=== PATIENT | female | born 1965 | race Caucasian/White ===

== ENCOUNTER 2016-11-17 16:53 | Inpatient (IN) | payer OTHER ==
[~2016-11-17] VITALS: Ht 157.5 cm; Wt 94.5 kg
[2016-11-17 20:15] VITALS: Ht 157.5 cm; Wt 94.5 kg
[2016-11-17 20:28] VITALS: BP 121/59; RESP 18
[2016-11-17] MEDS ORDERED: HYDROCODONE/APAP (7.5/325) TAB PO PRN (23:00)
[2016-11-17] MEDS ORDERED: INSULIN ASPART [NOVOLOG] 3 ML PEN SC ONE (23:30)
[2016-11-17] MEDS ORDERED: GLUCAGON 1 MG INJ IM PRN (23:30)
[2016-11-17] MEDS ORDERED: GLUCOSE GEL 15 GRAM TUBE BUCCAL PRN (23:30)
[2016-11-17] MEDS ORDERED: GLUCOSE GEL 15 GRAM TUBE PO PRN ×2 (23:30)
[2016-11-17] MEDS ORDERED: DEXTROSE 50% 50 ML SYRINGE IV PRN ×2 (23:30)
[2016-11-17] MEDS: morphine 4 MG/ML VIAL IV PRN (23:41)
[2016-11-17] MEDS: CIPROFLOXACIN 400MG/D5W 200 ML IVPB SCH (23:42)
[2016-11-17] MEDS: ALPRAZOLAM 0.5 MG TAB PO SCH (23:42)
[2016-11-17] MEDS: INSULIN ASPART [NOVOLOG] 3 ML PEN SC SCH (23:46)
[2016-11-17] MEDS: INSULIN GLARGINE [LANtus] 3 ML PEN SC SCH (23:48)
[2016-11-17] MEDS: DOCUSATE SODIUM 100 MG CAP PO SCH (23:48)
[2016-11-18] MEDS ORDERED: TAMSULOSIN (SR) 0.4 MG CAP PO SCH (00:30)
[2016-11-18] MEDS ORDERED: ZOLPIDEM 5 MG TAB PO PRN (00:30)
[2016-11-18 01:05] LABS: ADD SCAN DIFF NO
[2016-11-18 01:07] LABS: BASOPHILS % 0.3 % (0.0-2.0); EOSINOPHILS # 0.1 10^3/ul (0.0-0.5); EOSINOPHILS % 2.2 % (0.0-7.0); HEMATOCRIT 34.2 % (37.0-47.0); HEMOGLOBIN 11.4 g/dl (12.0-16.0); LYMPHOCYTES # 1.7 10^3/ul (0.8-2.9); LYMPHOCYTES % 26.8 % (15.0-51.0); MEAN CORPUSCULAR HEMOGLOBIN 26.6 pg (29.0-33.0); MEAN CORPUSCULAR HGB CONC 33.3 g/dl (32.0-37.0); MEAN CORPUSCULAR VOLUME 79.9 fl (82.0-101.0); MEAN PLATELET VOLUME 9.4 fl (7.4-10.4); MONOCYTE # 0.4 10^3/ul (0.3-0.9); MONOCYTES % 5.4 % (0.0-11.0); NEUTROPHIL # 4.2 10^3/ul (1.6-7.5); PLATELET COUNT 234 10^3/UL (140-415); RED BLOOD COUNT 4.28 10^6/ul (4.20-5.40); RED CELL DISTRIBUTION WIDTH 13.7 % (11.5-14.5); WHITE BLOOD COUNT 6.5 10^3/ul (4.8-10.8)
[2016-11-18 01:52] LABS: ALBUMIN 3.9 g/dl (3.3-4.9); ALBUMIN/GLOBULIN RATIO 1.21; BILIRUBIN,INDIRECT 0.2 mg/dl (0-1.1); BILIRUBIN,TOTAL 0.2 mg/dl (0.2-1.3); CALCIUM 8.8 mg/dl (8.4-10.2); CREATININE 0.84 mg/dl (0.44-1.00); MAGNESIUM 1.6 mg/dl (1.7-2.5); PHOSPHORUS 3.2 mg/dl (2.5-4.9); POTASSIUM 4.2 mmol/L (3.5-5.1); TOTAL PROTEIN 7.1 g/dl (6.1-8.1)
[2016-11-18] MEDS: ACCU-CHEK XX SCH (02:00)
[2016-11-18] MEDS ORDERED: MAGNESIUM SULFATE 4 GM/100 ML 100 ML IVPB ONE (04:00)
[2016-11-18] MEDS: ALPRAZOLAM 0.5 MG TAB PO SCH (06:38)
[2016-11-18 06:57] LABS: ADD UMIC YES; URINE BILIRUBIN (Dip) NEGATIVE (NEGATIVE); URINE BLOOD (Dip) 3+ (NEGATIVE); URINE COLOR LT. YELLOW (YELLOW); URINE KETONES (Dip) NEGATIVE (NEGATIVE); URINE LEUKOCYTE ESTERASE (Dip) 2+ (NEGATIVE); URINE NITRITE (Dip) POSITIVE (NEGATIVE); URINE TOTAL PROTEIN (Dip) 1+ (NEGATIVE); URINE UROBILINOGEN (Dip) 0.2 E.U./dL (0.1-1.0)
[2016-11-18] MEDS ORDERED: MAGNESIUM SULFATE 2 GM/50 ML 50 ML IVPB ONE ×2 (07:00→12:30)
[2016-11-18 07:25] VITALS: BP 130/62; RESP 18
[2016-11-18 07:44] LABS: BACTERIA,URINE MANY; URINE RBCS 25-50 /HPF (0)
[2016-11-18] MEDS: INSULIN ASPART [NOVOLOG] 3 ML PEN SC SCH ×4 (08:00→20:34)
[2016-11-18] MEDS: BENAZEPRIL 10 MG TAB PO SCH ×2 (09:00→09:01)
[2016-11-18] MEDS ORDERED: SERTRALINE 50 MG TAB PO SCH (09:00)
[2016-11-18] MEDS: DOCUSATE SODIUM 100 MG CAP PO SCH ×2 (09:01→20:28)
[2016-11-18] MEDS: CIPROFLOXACIN 400MG/D5W 200 ML IVPB SCH (09:06)
--- NOTE | 2016-11-18 11:33 | HP ---
Date/Time of Note Date/Time of Note DATE: 11/18/16 TIME: 11:23 Assessment/Plan Lines/Catheters IV Catheter Type (from Nrsg): Saline Lock Urinary Cath still in place: No Assessment/Plan Assessment/Plan 1. Bilateral Flank and Suprapubic pain - will check basic labs - UA with micro and urine culture - f/u urology recs 2, Hx of Ureteral Stent, 2 months ago at [facility] - awaiting urology eval 3. Diabetes - insulin with adjustment as needed - check A1c 4. Hx of panic d/o PRN anti-anxiety meds 5.Obesity with BMI of 38 - weight reduction advised HPI/ROS Admit Date/Time Admit Date/Time November 17, 2016 at 19:05 Hx of Present Illness Patient is a 51 yo female with hx of DM, panic disorder, Ureteral stent wjo was transferred from [facility] for evaluation of the ureteral stent. pat said she has been experiencing bilateral flank pain and also reported hematuria. Stent was placed at [facility] in september of this year. transfer to [facility] was accepted by Dr. Laughlin, urologist. of note, pt is a [employer]. . PMH/Family/Social Social History Smoking Status: Never smoker Exam/Review of Systems Vital Signs Vitals Vital Signs Date Time Temp Pulse Resp B/P Pulse Ox O2 Delivery O2 Flow Rate FiO2 11/18/16 07:25 98.6 64 18 130/62 96 Intake and Output 11/17/16 11/17/16 11/18/16 15:00 23:00 07:00 Intake Total 692 ml Output Total 200 ml Balance 492 ml Labs Result Diagram: 11/18/16 0030 11/18/16 0030 Medications Medications Current Medications Ciprofloxacin/ Dextrose (Cipro Ivpb) 200 ml @ 200 mls/hr Q12 IVPB Last administered on 11/18/16 09:06; Admin Dose 200 MLS/HR; Start 11/17/16 at 23:00 Morphine Sulfate (morphine) 4 mg Q4H PRN IV PAIN Last administered on t 23:41; Admin Dose 4 MG; Start 11/17/16 at 23:00 Benazepril HCl (Lotensin) 10 mg DAILY PO ; Start 11/18/16 at 09:00 Diphenhydramine HCl (Benadryl) 25 mg Q6H PRN PO ITCHING; Start 11/17/16 at 23: 00 Docusate Sodium (Colace) 100 mg BID PO Last administered on 11/18/16 09:01; Admin Dose 100 MG; Start 11/17/16 at 23:00 Ondansetron HCl (Zofran Inj) 4 mg Q4H PRN IV NAUSEA AND/OR VOMITING; Start 05/26 at 23:00 Sertraline HCl (Zoloft) 25 mg DAILY PO Last administered on 11/18/16 09:01; Admin Dose 25 MG; Start 11/18/16 at 09:00 Tamsulosin HCl (Flomax) 0.4 mg HS PO Last administered on 11/18/16 00:41; Admin Dose 0.4 MG; Start 11/18/16 at 00:30 Diagnostic Test (Pha) (Accu-Chek) Check 2 am Accucheck only if... 02 XX ; Start 11/18/16 at 02:00 Insulin Glargine (Lantus) 15 unit HS SC Last administered on 11/17/16 23:48; Admin Dose 15 UNIT; Start 11/18/16 at 21:00 Acetaminophen/ Hydrocodone Bitart (Emily (10/325)) 1 tab Q4H PRN PO PAIN; Start 11/17/16 at 23:30 Miscellaneous Information 1 ea NOTE XX ; Start 11/17/16 at 23:30 Glucose (Glutose) 15 gm Q15M PRN PO DECREASED GLUCOSE; Start 11/17/16 at 23:30 Glucose (Glutose) 22.5 gm Q15M PRN PO DECREASED GLUCOSE; Start 11/17/16 at 23: 30 Dextrose (D50w Syringe) 25 ml Q15M PRN IV DECREASED GLUCOSE; Start 11/17/16 at 23:30 Dextrose (D50w Syringe) 50 ml Q15M PRN IV DECREASED GLUCOSE; Start 11/17/16 at 23:30 Glucagon (Glucagen) 1 mg Q15M PRN IM DECREASED GLUCOSE; Start 11/17/16 at 23:30 Glucose (Glutose) 15 gm Q15M PRN BUCCAL DECREASED GLUCOSE; Start 11/17/16 at 23 :30 Alprazolam (Xanax) 25 mg BID PO ; Start 11/18/16 at 21:00; Status UNV Famotidine (Pepcid Iv) 20 mg DAILY IV ; Start 11/18/16 at 11:30 JUN COMER MD November 18, 2016 11:33
[2016-11-18] MEDS ORDERED: BUSPIRONE 5 MG TAB PO SCH (12:00)
--- NOTE | 2016-11-18 12:01 | PN ---
Date/Time of Note Date/Time of Note DATE: 11/18/16 TIME: 11:52 Assessment/Plan VTE Prophylaxis VTE Prophylaxis Intervention: LMWH Lines/Catheters IV C[facility]ter Type (from [facility]): Saline Lock Urinary Cath still in place: No Assessment/Plan Chief Complaint/Hosp Course S: Bilat flank pain, Dysuria, & Nausea. No hematuria. Stent was placed 4 months ~ at [facility]. Drinks plenty of fluids. Has intermittent constipation. O: Fever improved PE No pallor icterus adenopathy Reg no m/r/g CTAB Bs +/ diminished, mild diffuse tender below umbilicus bilat. Overweight. No r/r/ g or cvat No edema A/P 1. Complicated cystitis. Stable consulted urology. May need stent exchange. 2. Acute ESBL cystitis. Stent exchange with 7-10 days IV meropenem. May need PICC home help 3. Diabetes/metabolic syndrome/obesity; patient on po therapy at home 4. Anxiety disorder 5. Cholecystectomy status; history of 2 sections. 6. Chronic depression? Problems: Exam/Review of Systems Vital Signs Vitals Vital Signs Date Time Temp Pulse Resp B/P Pulse Ox O2 Delivery O2 Flow Rate FiO2 11/18/16 07:25 98.6 64 18 130/62 96 Intake and Output 11/17/16 11/17/16 11/18/16 15:00 23:00 07:00 Intake Total 692 ml Output Total 200 ml Balance 492 ml Results Result Diagram: 11/18/16 0030 11/18/16 0030 Results 24 hrs Laboratory Tests Test 11/17/16 23:03 11/18/16 00:04 11/18/16 00:30 11/18/16 02:15 Bedside Glucose 359 H 295 H Urine Color LT. YELLOW Urine Clarity OTHER Urine pH 6.0 Urine Specific [place] 1.025 Urine Ketones NEGATIVE Urine Nitrite POSITIVE H Urine Bilirubin NEGATIVE Urine Urobilinogen 0.2 E.U./dL Urine Leukocyte Esterase 2+ H Urine Microscopic RBC 25-50 Urine Microscopic WBC >50 Urine Epithelial Cells MODERATE Urine Triple Phosphate Crystals FEW Urine Bacteria MANY Urine Yeast MODERATE Urine Hemoglobin 3+ H Urine Glucose 0.5% H Urine Total Protein 1+ H White Blood Count 6.5 Red Blood Count 4.28 Hemoglobin 11.4 L Hematocrit 34.2 L Mean Corpuscular Volume 79.9 L Mean Corpuscular Hemoglobin 26.6 L Mean Corpuscular Hemoglobin Concent 33.3 Red Cell Distribution Width 13.7 Platelet Count 234 Mean Platelet Volume 9.4 Neutrophils % 65.0 Lymphocytes % 26.8 Monocytes % 5.4 Eosinophils % 2.2 Basophils % 0.3 Nucleated Red Blood Cells % 0.0 Neutrophils # 4.2 Lymphocytes # 1.7 Monocytes # 0.4 Eosinophils # 0.1 Basophils # 0.0 Nucleated Red Blood Cells # 0.0 Sodium Level 132 L Potassium Level 4.2 Chloride Level 100 Carbon Dioxide Level 23 Anion Gap 13 Blood Urea Nitrogen 18 Creatinine 0.84 Glucose Level 417 *H Hemoglobin A1c 7.7 H Calcium Level 8.8 Phosphorus Level 3.2 Magnesium Level 1.6 L Total Bilirubin 0.2 Direct Bilirubin 0.00 Indirect Bilirubin 0.2 Aspartate Amino Transf (AST/SGOT) 29 Alanine Aminotransferase (ALT/SGPT) 27 Alkaline Phosphatase 89 Total Protein 7.1 Albumin 3.9 Globulin 3.20 Albumin/Globulin Ratio 1.21 Test 11/18/16 08:03 11/18/16 11:45 Bedside Glucose 109 225 H Medications Medications Current Medications Ciprofloxacin/ Dextrose (Cipro Ivpb) 200 ml @ 200 mls/hr Q12 IVPB Last administered on 11/18/16 09:06; Admin Dose 200 MLS/HR; Start 11/17/16 at 23:00 Morphine Sulfate (morphine) 4 mg Q4H PRN IV PAIN Last administered on 23:41; Admin Dose 4 MG; Start 11/17/16 at 23:00 Benazepril HCl (Lotensin) 10 mg DAILY PO ; Start 11/18/16 at 09:00 Diphenhydramine HCl (Benadryl) 25 mg Q6H PRN PO ITCHING; Start 11/17/16 at 23: 00 Docusate Sodium (Colace) 100 mg BID PO Last administered on 11/18/16 09:01; Admin Dose 100 MG; Start 11/17/16 at 23:00 Ondansetron HCl (Zofran Inj) 4 mg Q4H PRN IV NAUSEA AND/OR VOMITING; Start 05/26 at 23:00 Sertraline HCl (Zoloft) 25 mg DAILY PO Last administered on 11/18/16 09:01; Admin Dose 25 MG; Start 11/18/16 at 09:00 Tamsulosin HCl (Flomax) 0.4 mg HS PO Last administered on 11/18/16 00:41; Admin Dose 0.4 MG; Start 11/18/16 at 00:30 Diagnostic Test (Pha) (Accu-Chek) Check 2 am Accucheck only if... 02 XX ; Start 11/18/16 at 02:00 Insulin Glargine (Lantus) 15 unit HS SC Last administered on 11/17/16 23:48; Admin Dose 15 UNIT; Start 11/18/16 at 21:00 Acetaminophen/ Hydrocodone Bitart ([place] ()) 1 tab Q4H PRN PO PAIN; Start 11/17/16 at 23:30 Miscellaneous Information 1 ea NOTE XX ; Start 11/17/16 at 23:30 Glucose (Glutose) 15 gm Q15M PRN PO DECREASED GLUCOSE; Start 11/17/16 at 23:30 Glucose (Glutose) 22.5 gm Q15M PRN PO DECREASED GLUCOSE; Start 11/17/16 at 23: 30 Dextrose (D50w Syringe) 25 ml Q15M PRN IV DECREASED GLUCOSE; Start 11/17/16 at 23:30 Dextrose (D50w Syringe) 50 ml Q15M PRN IV DECREASED GLUCOSE; Start 11/17/16 at 23:30 Glucagon (Glucagen) 1 mg Q15M PRN IM DECREASED GLUCOSE; Start 11/17/16 at 23:30 Glucose (Glutose) 15 gm Q15M PRN BUCCAL DECREASED GLUCOSE; Start 11/17/16 at 23 :30 Alprazolam (Xanax) 25 mg BID PO ; Start 11/18/16 at 21:00; Status UNV Famotidine (Pepcid Iv) 20 mg DAILY IV ; Start 11/18/16 at 11:30 CHARIS OCHOA MD November 18, 2016 12:01
[2016-11-18] MEDS: FAMOTIDINE 20 MG INJ IV SCH (12:27)
[2016-11-18] MEDS: morphine 4 MG/ML VIAL IV PRN ×2 (12:27→18:14)
[2016-11-18] MEDS ORDERED: traZODone 50 MG TAB PO PRN (12:30)
[2016-11-18] MEDS ORDERED: MEROPENEM 2 GM in SOD CHLORIDE 0.9% 100 ML IVPB SCH (12:30)
[2016-11-18] MEDS: SOD CHLORIDE 0.9% 1,000 ML IV SCH (12:31)
--- NOTE | 2016-11-18 13:43 | CONS ---
DATE OF ADMISSION: 11/17/2016 DATE OF CONSULTATION: UROLOGY CONSULTATION HISTORY: Aline is a 51-year-old female who is not able to give any pertinent medical history. Klarissa sánchez has been transferred from an outside institution for continuation of her urologic care under the a ssistance of Dr. Laughlin. Apparently, the patient has a long history of nephrolithiasis and insertion of a previous right ureteral stent. It is unclear how long the stent has been in there and potenti bernadettey may have been there for several years. A CT scan in October of this year demonstrates a right st ent, as well as a 3 x 1 stone in the right renal pelvis and a 10 x 8 mid to distal right ureteral st one. There is a focus of gas in the renal pelvis and it is unclear if this is secondary to infectio n or manipulation. Her urine culture is consistent with ESBL. On November 14 her creatinine was 1.0, h er white blood count was 7.8, her hemoglobin was 12.1. There is a question of atrophy and renal fun ction of the right kidney. She is a [employer] and is potentially considering removal of her right kidney or a robotic nephrolithotomy. PAST MEDICAL HISTORY: Diabetes, morbid obesity, urinary tract infection. PAST SURGICAL HISTORY: Status post insertion of a stent, status post , removal of ovarian tumor, status post tonsillectomy. MEDICATIONS: 1. Benazepril 2. Metformin. 3. Alprazolam. 4. Diphenhydramine. 5. Tylenol No. 3. 6. Flagyl. 7. Macrobid. 8. Flomax. 9. Sertraline. PHYSICAL EXAMINATION: GENERAL: Morbidly obese female, in no apparent distress. LUNGS: Good breath sounds bilaterally. HEART: Regular rate and rhythm. ABDOMEN: Soft, nondistended, nontender. No palpable masses. Flank, no CVA tenderness, no masses. IMPRESSION: 1. Urinary tract infection. 2. Staghorn calculi. 3. Possible significant distal ureteral stone. 4. Diabetes. PLAN: 1. IV antibiotic therapy. 2. Discontinue Flomax. 3. Discontinue Flagyl and Macrobid. 4. MAG3 renal scan with Lasix washout. 5. CT scan of abdomen and pelvis without contrast and KUB with obliques. Further intervention and evaluation pending clinical course and results of above. Dictated By: JUDITH DOMINGUEZ/NTS Conf#: [id number] DID#: [id number]
[2016-11-18] MEDS ORDERED: MEROPENEM 2 GM in SOD CHLORIDE 0.9% 100 ML IV SCH (14:00)
[2016-11-18] MEDS: MEROPENEM 1 GM/100 ML (PMX) 100 ML IVPB SCH ×2 (15:07→22:10)
[2016-11-18] MEDS: HYDROCODONE/APAP (10/325) TAB PO PRN (15:14)
--- NOTE | 2016-11-18 16:08 | RADRPT ---
PROCEDURE: XR Abdomen. CLINICAL INDICATION: Urinary tract calculus. TECHNIQUE: Two views. AP supine and AP erect. COMPARISON: CT scan of the abdomen and pelvis done the same day. FINDINGS: There is no free air. The bowel gas pattern is normal with no evidence of obstruction. Surgical clips are present in the right upper quadrant of the abdomen from previous cholecystectomy. A right ureteral stent is present in satisfactory position. There is a calculus in the proximal rig ht ureter measuring 0.9 x 2.0 cm in cranial caudal and transverse dimensions. A calculus in the mid right ureter at the level of the upper sacroiliac joint seen on the CT scan is not well seen on the plain radiograph. There are mild degenerative changes of the spine. IMPRESSION: 1. Previous cholecystectomy. 2. Right ureteral stent in satisfactory position. 3. Large calculus in the proximal right ureter. 4. The calculus in the mid right ureter seen on the CT scan is not well seen on the plain radiograp h. 5. Mild degenerative changes of the spine. RPTAT: QQ .Artemio Junior MD, Date Time Electronically viewed and signed by .Artemio Junior MD, on 11/18/2016 16:08 .R/
--- NOTE | 2016-11-18 16:17 | RADRPT ---
PROCEDURE: CT Abdomen and Pelvis without contrast. CLINICAL INDICATION: Abdominal and pelvic pain. Urinary tract calculi. TECHNIQUE: CT scan of the abdomen and pelvis without contrast was performed. Coronal and sagittal reformatted images were obtained from the axial source images. Images were reviewed on a high-resolu [employer] PACS workstation. Total exam DLP is 1324.83 mGy-cm. CTDIvol is 21.72 mGy. One or more of the following dose reduction techniques were used: Automated exposure control, adjustment of the mA and/ or kV according to patient size, use of iterative reconstruction technique. COMPARISON: None. FINDINGS: The lung bases are normal. There is no pleural effusion. The liver is normal in size and attenuation. There is no focal hepatic lesion. Surgical clips are present from previous cholecystectomy. The bile ducts are normal. The spleen is normal in size. There is no focal splenic lesion. Both adrenals are normal with no enlargement or mass. The pancreas is unremarkable with no mass or evidence of pancreatitis. The right kidney is atrophic. There is mild right hydronephrosis. A right double pigtail ureteral stent is present in satisfactory position. There is a large calculus in the proximal right ureter/u reteropelvic junction measuring 1.2 x 1.9 x 2.1 cm in AP, transverse, and cranial caudal dimensions. A second calculus is present in the mid right ureter at the level of the upper sacroiliac joint me asuring 0.7 x 0.8 x 1.0 cm in AP, transverse, and cranial caudal dimensions. There is no other urin keren tract calculus. The left kidney is normal with no hydronephrosis, mass, or calculus. There is normal size and the left kidney. The abdominal aorta is not dilated. There is no retroperitoneal lymphadenopathy or mass. There is no pelvic lymphadenopathy or mass. The bladder as the distal end of the right ureteral stent but is otherwise normal. The appendix is well seen and appears normal. The bowel and mesentery are normal. There is no free fluid or free gas. The osseous structures are unremarkable with no fracture or lytic lesion. IMPRESSION: 1. Status post cholecystectomy. 2. Atrophic right kidney. 3. Right ureteral stent in satisfactory position. 4. Calculus in the proximal right ureter/ureteropelvic junction measuring 1.2 x 1.9 x 2.1 cm. 5. Calculus in the mid right ureter measuring 0.7 x 0.8 x 1.0 cm. 6. Normal left kidney and left ureter. 7. Normal appendix. 8. Otherwise unremarkable study. RPTAT: QQ .Artemio Junior MD, Date Time Electronically viewed and signed by .Artemio Junior MD, on 11/18/2016 16:17 .R/
[2016-11-18 20:09] VITALS: BP 128/62; RESP 16
[2016-11-18] MEDS: ONDANSETRON 4 MG INJ IV PRN (20:24)
[2016-11-18] MEDS: INSULIN GLARGINE [LANtus] 3 ML PEN SC SCH (20:33)
[2016-11-18] MEDS ORDERED: INSULIN GLARGINE [LANtus] 3 ML PEN SC SCH (21:00)
[2016-11-18] MEDS ORDERED: ALPRAZOLAM 0.5 MG TAB PO SCH (21:00)
--- NOTE | 2016-11-18 21:43 | RADRPT ---
PROCEDURE: Renal scan flow and function study with Lasix CLINICAL INDICATION: 51 -year-old patient with right -sided hydronephrosis, for evaluation for obst ructive process. TECHNIQUE: Following the intravenous injection of 11.0 mCi of Tc-99m MAG3, renal scan, flow and fu nction study was obtained. The patient was then given an intravenous injection of 40 mg of Lasix an d imaging acquisition was continued for additional 30 minutes. COMPARISON: No prior renal scans. CT scan of the abdomen and pelvis dated November 18, 2016 FINDINGS: Blood flow phase of the study demonstrates normal bolus aortic transit time, severely degree as bloo d flow to the right kidney and normal blood flow to the left kidney. Function phase of the study demonstrates severely reduced initial extraction of the right kidney and normal initial extraction of the left kidney. The right kidney is markedly smaller in size than the left kidney. On the delayed views, there is evidence of a mild retention of radionuclide in the right renal pelvi s. Following Lasix administration, there is evidence of a normal washout of activity from the left noel ecting renal system following Lasix administration with calculated T1/2 time of 11 minutes (normal i s less than 10 minutes, borderline between 10 and 20 minutes, abnormal is greater than 20 minutes). Diuretic response of the right kidney cannot be determined due to a poor underlying renal function. Split function is 98 % for the left kidney and 2% for the right kidney. IMPRESSION: 1. Severely reduced flow and function of the small right kidney with mild retention of radionuclide in the right renal pelvis; diuretic response cannot be determined due to a poor underlying renal fu nction. 2. Normal flow and function of the left kidney with normal washout of activity following Lasix admin istration. 3. Split function is 98 % for the left kidney and 2% for the right kidney. RPTAT: QQ .Medina Barron MD, MD Date Time Electronically viewed and signed by .Medina Barron MD, on 11/18/2016 21:42 .L/
[2016-11-18 22:00] VITALS: PULSE 88
[2016-11-18] MEDS: morphine 10 MG INJ IV PRN (22:17)
[2016-11-18] MEDS: ZOLPIDEM 5 MG TAB PO PRN (23:45)
[2016-11-19] MEDS: ACCU-CHEK XX SCH (01:31)
[2016-11-19] MEDS: SOD CHLORIDE 0.9% 1,000 ML IV SCH ×2 (01:31→11:58)
[2016-11-19] MEDS: MEROPENEM 1 GM/100 ML (PMX) 100 ML IVPB SCH ×3 (05:19→21:26)
[2016-11-19 06:06] LABS: ADD SCAN DIFF NO
[2016-11-19 06:22] LABS: BASOPHILS % 0.3 % (0.0-2.0); EOSINOPHILS # 0.3 10^3/ul (0.0-0.5); EOSINOPHILS % 3.8 % (0.0-7.0); HEMATOCRIT 35.8 % (37.0-47.0); HEMOGLOBIN 11.5 g/dl (12.0-16.0); LYMPHOCYTES # 2.2 10^3/ul (0.8-2.9); LYMPHOCYTES % 32.3 % (15.0-51.0); MEAN CORPUSCULAR HGB CONC 32.1 g/dl (32.0-37.0); MEAN CORPUSCULAR VOLUME 80.8 fl (82.0-101.0); MEAN PLATELET VOLUME 9.2 fl (7.4-10.4); MONOCYTE # 0.4 10^3/ul (0.3-0.9); MONOCYTES % 6.5 % (0.0-11.0); NEUTROPHIL # 3.9 10^3/ul (1.6-7.5); NEUTROPHILS % 56.8 % (39.0-77.0); PLATELET COUNT 238 10^3/UL (140-415); RED BLOOD COUNT 4.43 10^6/ul (4.20-5.40); RED CELL DISTRIBUTION WIDTH 13.8 % (11.5-14.5); WHITE BLOOD COUNT 6.8 10^3/ul (4.8-10.8)
[2016-11-19 06:52] LABS: INR 1.02; PROTIME 13.4 Sec (12.2-14.2)
[2016-11-19 07:02] LABS: ALBUMIN 3.7 g/dl (3.3-4.9); ALBUMIN/GLOBULIN RATIO 1.12; BILIRUBIN,INDIRECT 0.2 mg/dl (0-1.1); BILIRUBIN,TOTAL 0.2 mg/dl (0.2-1.3); CALCIUM 8.7 mg/dl (8.4-10.2); CREATININE 0.93 mg/dl (0.44-1.00); MAGNESIUM 1.9 mg/dl (1.7-2.5); PHOSPHORUS 4.2 mg/dl (2.5-4.9); POTASSIUM 3.9 mmol/L (3.5-5.1)
[2016-11-19 07:29] LABS: THYROID STIMULATING HORMONE 1.39 MIU/L (0.465-4.680)
[2016-11-19 07:56] VITALS: BP 109/52; RESP 18
[2016-11-19] MEDS: INSULIN ASPART [NOVOLOG] 3 ML PEN SC SCH ×4 (08:00→20:50)
[2016-11-19] MEDS: FAMOTIDINE 20 MG INJ IV SCH (08:22)
[2016-11-19] MEDS: SERTRALINE 50 MG TAB PO SCH (08:22)
[2016-11-19] MEDS: BENAZEPRIL 10 MG TAB PO SCH (08:27)
[2016-11-19] MEDS: morphine 10 MG INJ IV PRN ×4 (09:13→22:09)
--- NOTE | 2016-11-19 11:33 | RADRPT ---
PROCEDURE: XR Chest. CLINICAL INDICATION: Preoperative evaluation TECHNIQUE: Single frontal chest x-ray. COMPARISON: None. FINDINGS: No acute infiltrate, pleural effusion or pneumothorax is identified. Cardiomediastinal silhouette i s within normal limits. The osseous structures are unremarkable. IMPRESSION: 1. No evidence of acute cardiopulmonary process. RPTAT: QQ .Jonn Arguello MD, MD Date Time Electronically viewed and signed by .Jonn Arguello MD, on 11/19/2016 11:32 .R/
--- NOTE | 2016-11-19 17:20 | PN ---
Date/Time of Note Date/Time of Note DATE: 11/19/16 TIME: 17:13 Assessment/Plan VTE Prophylaxis VTE Prophylaxis Intervention: ambulation Lines/Catheters IV [facility] Peripheral IV Urinary Cath still in place: No Assessment/Plan Assessment/Plan Right atrophic Kidney: Nuc scan and CT C/W non functioning kidney Abd/flank pain Right Side UTI: infected right kidney Large stone in Right kidney Ureteral stone Retained right ureteral stent PLAN: Cont Iv Abx Pt is schedule for laparoscopic right nephrectomy on monday11/23/16 Due to the facts that the right kidney is non functional, atrophic, and pt does not accept blood transfusion, a PCNL will not be performed for the pt. Instead a lap right nephrectomy will be performed Subjective 24 Hr Interval Summary Free Text/Dictation right abdominal pain Exam/Review of Systems Vital Signs Vitals Vital Signs Date Time Temp Pulse Resp B/P Pulse Ox O2 Delivery O2 Flow Rate FiO2 11/19/16 07:56 97.8 85 18 109/52 92 Intake and Output 11/18/16 11/18/16 11/19/16 15:00 23:00 07:00 Intake Total 288 ml 1310 ml 1730 ml Output Total 1100 ml Balance 288 ml 210 ml 1730 ml Exam Gastrointestinal: non-tender (right abd tenderness), soft, tender Genitourinary - Female: CVA tenderness (right ) Results Result Diagram: 11/19/16 0515 11/19/16 0515 Results 24 hrs Laboratory Tests Test 11/18/16 18:11 11/18/16 20:31 11/19/16 01:53 11/19/16 05:15 Bedside Glucose 113 226 H 276 H White Blood Count 6.8 Red Blood Count 4.43 Hemoglobin 11.5 L Hematocrit 35.8 L Mean Corpuscular Volume 80.8 L Mean Corpuscular Hemoglobin 26.0 L Mean Corpuscular Hemoglobin Concent 32.1 Red Cell Distribution Width 13.8 Platelet Count 238 Mean Platelet Volume 9.2 Neutrophils % 56.8 Lymphocytes % 32.3 Monocytes % 6.5 Eosinophils % 3.8 Basophils % 0.3 Nucleated Red Blood Cells % 0.0 Neutrophils # 3.9 Lymphocytes # 2.2 Monocytes # 0.4 Eosinophils # 0.3 Basophils # 0.0 Nucleated Red Blood Cells # 0.0 Prothrombin Time 13.4 Prothrombin Time Ratio 1.0 INR International Normalized Ratio 1.02 Sodium Level 136 Potassium Level 3.9 Chloride Level 101 Carbon Dioxide Level 28 Anion Gap 11 Blood Urea Nitrogen 16 Creatinine 0.93 Glucose Level 211 # Calcium Level 8.7 Phosphorus Level 4.2 Magnesium Level 1.9 Total Bilirubin 0.2 Direct Bilirubin 0.00 Indirect Bilirubin 0.2 Aspartate Amino Transf (AST/SGOT) 26 Alanine Aminotransferase (ALT/SGPT) 36 Alkaline Phosphatase 90 Total Protein 7.0 Albumin 3.7 Globulin 3.30 H Albumin/Globulin Ratio 1.12 Thyroid Stimulating Hormone (TSH) 1.390 Serum HCG, Qualitative NEGATIVE Test 11/19/16 08:20 11/19/16 11:57 Bedside Glucose 151 142 Medications Medications Current Medications Benazepril HCl (Lotensin) 10 mg DAILY PO ; Start 11/18/16 at 09:00 Diphenhydramine HCl (Benadryl) 25 mg Q6H PRN PO ITCHING; Start 11/17/16 at 23: 00 Ondansetron HCl (Zofran Inj) 4 mg Q4H PRN IV NAUSEA AND/OR VOMITING Last administered on 11/18/16 20:24; Admin Dose 4 MG; Start 11/17/16 at 23:00 Diagnostic Test (Pha) (Accu-Chek) Check 2 am Accucheck only if... 02 XX ; Start 11/18/16 at 02:00 Acetaminophen/ Hydrocodone Bitart ([place] (10/325)) 1 tab Q4H PRN PO PAIN Last administered on 11/18/16 15:14; Admin Dose 1 TAB; Start 11/17/16 at 23:30 Miscellaneous Information 1 ea NOTE XX ; Start 11/17/16 at 23:30 Glucose (Glutose) 15 gm Q15M PRN PO DECREASED GLUCOSE; Start 11/17/16 at 23:30 Glucose (Glutose) 22.5 gm Q15M PRN PO DECREASED GLUCOSE; Start 11/17/16 at 23: 30 Dextrose (D50w Syringe) 25 ml Q15M PRN IV DECREASED GLUCOSE; Start 11/17/16 at 23:30 Dextrose (D50w Syringe) 50 ml Q15M PRN IV DECREASED GLUCOSE; Start 11/17/16 at 23:30 Glucagon (Glucagen) 1 mg Q15M PRN IM DECREASED GLUCOSE; Start 11/17/16 at 23:30 Glucose (Glutose) 15 gm Q15M PRN BUCCAL DECREASED GLUCOSE; Start 11/17/16 at 23 :30 Famotidine (Pepcid Iv) 20 mg DAILY IV Last administered on 11/19/16 08:22; Admin Dose 20 MG; Start 11/18/16 at 11:30 Docusate Sodium (Colace) 200 mg HS PO Last administered on 11/18/16 20:28; Admin Dose 200 MG; Start 11/18/16 at 21:00 Sertraline HCl (Zoloft) 50 mg DAILY PO Last administered on 11/19/16 08:22; Admin Dose 50 MG; Start 11/19/16 at 09:00 Trazodone HCl (Desyrel) 50 mg HS PRN PO ANXIETY; Start 11/18/16 at 12:30 Ferrous Sulfate 300 mg 300 mg BID NGT ; Start 11/20/16 at 09:00 Sodium Chloride 1,000 ml @ 75 mls/hr [id number] IV Last administered on 11:58; Admin Dose 75 MLS/HR; Start 11/18/16 at 12:30 Meropenem (Merrem 1 Gm/100 ml (Pmx)) 100 ml @ 200 mls/hr Q8 IVPB Last administered on 11/19/16 13:57; Admin Dose 200 MLS/HR; Start 11/18/16 at 14:00 Morphine Sulfate (morphine) 5 mg Q4H PRN IV PAIN Last administered on 13:58; Admin Dose 5 MG; Start 11/18/16 at 22:00 Zolpidem Tartrate (Ambien) 10 mg HS PRN PO INSOMNIA Last administered on 23:45; Admin Dose 10 MG; Start 11/18/16 at 22:00 Insulin Glargine (Lantus) 22 unit HS SC ; Start 11/19/16 at 21:00 LYNN SERNA November 19, 2016 17:20
[2016-11-19] MEDS: ZOLPIDEM 5 MG TAB PO PRN (20:44)
[2016-11-19] MEDS: DOCUSATE SODIUM 100 MG CAP PO SCH (20:44)
[2016-11-19] MEDS: INSULIN GLARGINE [LANtus] 3 ML PEN SC SCH (20:48)
[2016-11-19 21:12] VITALS: BP 118/59; RESP 16
[2016-11-20] MEDS: HYDROCODONE/APAP (10/325) TAB PO PRN (00:06)
[2016-11-20] MEDS: ACCU-CHEK XX SCH (01:24)
[2016-11-20] MEDS: morphine 10 MG INJ IV PRN ×5 (03:09→21:34)
[2016-11-20] MEDS: SOD CHLORIDE 0.9% 1,000 ML IV SCH ×3 (05:04→20:14)
[2016-11-20] MEDS: DIPHENHYDRAMINE 25 MG CAP PO PRN ×3 (05:05→20:15)
[2016-11-20] MEDS: MEROPENEM 1 GM/100 ML (PMX) 100 ML IVPB SCH ×3 (05:05→21:37)
[2016-11-20 06:33] LABS: ADD SCAN DIFF NO
[2016-11-20 08:07] VITALS: BP 101/52; RESP 18
[2016-11-20] MEDS: INSULIN ASPART [NOVOLOG] 3 ML PEN SC SCH ×4 (08:10→20:10)
[2016-11-20 08:22] LABS: CALCIUM 8.6 mg/dl (8.4-10.2); CREATININE 0.79 mg/dl (0.44-1.00); POTASSIUM 4.6 mmol/L (3.5-5.1)
[2016-11-20] MEDS: FAMOTIDINE 20 MG INJ IV SCH (08:44)
[2016-11-20] MEDS: SERTRALINE 50 MG TAB PO SCH (08:44)
[2016-11-20] MEDS: FERROUS SULFATE 60 MG/ML 5ML CUP NGT SCH ×2 (08:44→20:11)
[2016-11-20] MEDS: BENAZEPRIL 10 MG TAB PO SCH (08:51)
[2016-11-20 09:47] LABS: HEMATOCRIT 35.5 % (37.0-47.0); HEMOGLOBIN 11.5 g/dl (12.0-16.0); MEAN CORPUSCULAR HEMOGLOBIN 26.1 pg (29.0-33.0); MEAN CORPUSCULAR HGB CONC 32.4 g/dl (32.0-37.0); MEAN CORPUSCULAR VOLUME 80.7 fl (82.0-101.0); MEAN PLATELET VOLUME 9.3 fl (7.4-10.4); PLATELET COUNT 221 10^3/UL (140-415); RED CELL DISTRIBUTION WIDTH 13.5 % (11.5-14.5); WHITE BLOOD COUNT 5.9 10^3/ul (4.8-10.8)
[2016-11-20 09:55] LABS: BASOPHILS % 0.4 % (0.0-2.0); EOSINOPHILS % 3.4 % (0.0-7.0); LYMPHOCYTES % 31.9 % (15.0-51.0); MONOCYTES % 6.2 % (0.0-11.0); NEUTROPHILS % 57.9 % (39.0-77.0)
[2016-11-20] MEDS: DOCUSATE SODIUM 100 MG CAP PO SCH (20:11)
[2016-11-20] MEDS: INSULIN GLARGINE [LANtus] 3 ML PEN SC SCH (20:11)
[2016-11-20 20:54] VITALS: BP 132/61; RESP 19
[2016-11-20] MEDS: ZOLPIDEM 5 MG TAB PO PRN (22:05)
[2016-11-21] MEDS: morphine 10 MG INJ IV PRN ×6 (01:36→23:16)
[2016-11-21] MEDS: ACCU-CHEK XX SCH (01:39)
[2016-11-21] MEDS: MEROPENEM 1 GM/100 ML (PMX) 100 ML IVPB SCH ×2 (05:30→15:12)
[2016-11-21] MEDS: INSULIN ASPART [NOVOLOG] 3 ML PEN SC SCH ×5 (08:00→20:46)
[2016-11-21 08:08] VITALS: BP 98/47; RESP 16
[2016-11-21] MEDS: FAMOTIDINE 20 MG INJ IV SCH (08:08)
[2016-11-21] MEDS: FERROUS SULFATE 60 MG/ML 5ML CUP NGT SCH ×2 (08:08→20:41)
[2016-11-21] MEDS: ONDANSETRON 4 MG INJ IV PRN (08:09)
[2016-11-21] MEDS: SERTRALINE 50 MG TAB PO SCH (08:09)
[2016-11-21] MEDS: BENAZEPRIL 10 MG TAB PO SCH (08:20)
[2016-11-21] MEDS: SOD CHLORIDE 0.9% 1,000 ML IV SCH ×2 (09:38→20:30)
--- NOTE | 2016-11-21 10:54 | CONS ---
DATE OF ADMISSION: 11/17/2016 DATE OF CONSULTATION: 11/21/2016 CHIEF COMPLAINT: Right flank pain. HISTORY OF PRESENT ILLNESS: Although this patient has already been consulted by our team, this note is placed in the chart due to being able to obtain further information today about patient's urological history This is a 51-year-old female with about a 1-year history of known right staghorn kidney calculus. The patient has been out of different hospitals for this problem. She has had multiple changes to her insurance status. Therefore , she has been unable to undergo definitive treatment for her problem. Apparently about 5 months ago she underwent a cystoscopy with stent placement in the right kidney. She also reports that over time she was found to have developed a nonfunctioning right kidney. She has about a 3 to 4 cm renal calculus which appears to be a staghorn calculus located in the renal pelvis on the right side. She also has a 2 cm stone in the mid ureter. She does have a stent in place. Her workup at [facility] has revealed a nonfunctioning kidney. This is based on a renal nuclear scan which was done recently. The patient reports that she continues to have right-sided flank pain. She has been getting narcotic medications for this problem. Prior to transfer to this hospital, the patient was at a different facility. She apparently refused to leave the hospital without getting definitive treatment for her stone. She expresses frustration with not having had her treatment done yet. Previous urologists had apparently scheduled her for surgery, but then her insurance changed. Other urologists have told her that the kind of surgery she needs is not one that they do, therefore, she has been transferred here for further higher level care. The patient also has been diagnosed with extended-spectrum beta-lactamase Escherichia coli urinary tract infection for which she is currently undergoing antibiotic therapy with imipenem. PAST MEDICAL HISTORY: Diabetes, panic disorder, obesity, hypertension. No history of NM or stroke. PAST SURGICAL HISTORY: Open cholecystectomy, cystoscopy, right ureteral stent placement. SOCIAL HISTORY: No smoke, no alcohol. FAMILY HISTORY: Cousin had some type of tumor either in the brain on the skull. REVIEW OF SYSTEMS: CONSTITUTIONAL: No fevers, no chills, no weight loss. HEENT: No loss of hearing, no ear or sinus pain. No rhinorrhea, nosebleed or sore throat. CARDIOVASCULAR: No chest pain, no shortness of breath or heart palpitations. RESPIRATORY: No cough. No phlegm production, wheezing or hemoptysis. GASTROINTESTINAL: The patient has had abdominal pain located in the kidney areas, right greater than left, also has had some suprapubic pain. No hematemesis. No hematuria, no nausea, vomiting. PSYCHIATRIC: The patient feels anxious and depressed over her situation. MUSCULOSKELETAL: No bone pain. No change in strength or joint pain. INTEGUMENTARY: No skin rash or lesions. NEUROLOGICAL: No dizziness, no headaches, no known numbness. HEMATOLOGY/LYMPHATIC: No known bleeding problems. PHYSICAL EXAMINATION: CONSTITUTIONAL: The patient appears to be in no acute distress. VITAL SIGNS: Temperature 97.9, heart rate of 73, blood pressure 98/47, saturating 95% to 97% on room air. GASTROINTESTINAL: Abdomen is soft, normal bowel sounds, nondistended, nontender. Hernia exam none noted. Liver and spleen normal. GENITOURINARY: Kidneys mild right CVA tenderness. Suprapubic area. No fullness. No tenderness. NECK: Normal appearing, symmetric. Normal tracheal position. Thyroid no enlargement. ASSESSMENT: 1. Right renal staghorn calculus. 2. Right renal atrophy. 3. Right ureteral stone. 4. Retained right ureteral stent. 5. Nonfunctioning right kidney. RECOMMENDATIONS: 1. I have spoken with the patient in detail about the natural history and biology of stones and nonfunctioning kidney. We have discussed various treatment options. Among these options, she understands her choices include, but are not limited to continue with stent changes, PCNL ureteroscopy, open radical nephrectomy with ureterectomy, laparoscopic nephrectomy with ureterectomy. I then discussed the pros and cons of these various treatment options. Among these options, I have recommended and patient has elected to undergo a laparoscopic right nephrectomy with ureterectomy and removal of the right ureteral stent. This procedure has been explained to the patient in detail. Risks and benefits have been discussed. The patient is a Adventist and refuses to have blood transfusions. She understands that risks include, but are not limited to infection, bleeding, damage to adjacent structures, heart problems, lung problems, possibility of need for further surgery, DVT, PE, NM, CVA, nonresolution of symptoms, reoccurrence of symptoms, need for other treatments, need for other surgeries, bowel injury, liver injury , vascular injury, need to convert to open surgery, inability to complete the surgery, possible . All of her questions have been answered, no guarantees given. The patient would like to proceed. 2. I also spoke with the hospitalist service to help with preoperative medical clearance. 3. The patient will also have a bowel prep prior to surgery. Dictated By: LYNN SERNA MD SR/MIRA Conf#: [id number] DID#: [id number] MTDD
--- NOTE | 2016-11-21 12:19 | RADRPT ---
PROCEDURE: Chest radiograph series. CLINICAL INDICATION: Hypertension TECHNIQUE: PA and lateral chest x-ray. COMPARISON: Chest radiograph 11/19/2016 FINDINGS: The cardiomediastinal silhouette is unremarkable. The lungs and costophrenic angles are clear. The o sseous structures are unremarkable. IMPRESSION: 1. Unremarkable chest radiograph series. RPTAT: KK .Jaquan Benson MD, MD Date Time Electronically viewed and signed by .Jaquan Benson MD, MD on 11/21/2016 12:19 .B/
--- NOTE | 2016-11-21 13:42 | PN ---
DATE: 11/21/2016 TIME OF EVALUATION: 12:30 p.m. SUBJECTIVE DATA: Denies any complaints of left flank pain. OBJECTIVE DATA: VITAL SIGNS: Temperature 97.9, pulse is 78, respiratory rate 16, blood pressure 98/47, oxygen saturation 95% on room air. GENERAL: This is a morbidly obese female patient sitting in bed in no apparent distress. HEENT: Head normocephalic and atraumatic. Eyes: Anicteric sclerae. Conjunctivae clear. ENT: Nasal septum is midline. Oral mucosa is moist. NECK: Supple. No JVD noticed. RESPIRATORY: Bilaterally clear to auscultation. No adventitious breath sounds heard. No use of accessory muscles of respiration. CARDIAC: Regular rate and rhythm. S1 and S2 heard. GASTROINTESTINAL: Soft, nontender and nondistended. Bowel sounds positive in all 4 quadrants. GENITOURINARY: Deferred. EXTREMITIES: No cyanosis, no clubbing, no edema. Peripheral pulses are palpable. NEUROLOGIC: The patient is awake, alert and oriented. Cranial nerves are grossly intact. LABORATORY AND DIAGNOSTIC DATA: None for today. ASSESSMENT AND PLAN: 1. Acute extended-spectrum beta-lactamase urinary tract infection. Continue antibiotics. Involve infectious disease is on the case. 2. Type 2 diabetes mellitus. Uncontrolled. Hemoglobin A1c 7.7. Continue sliding scale insulin with Lantus insulin. We will also add premeal insulin. 3. Essential hypertension. Continue antihypertensives. Blood pressure slightly on the lower side. 4. Right renal staghorn calculus. Status post right ureteral stent. Continue management as per urology. 5. Right renal atrophy with a nuclear medicine scan showing severely reduced flow and function of the small right kidney. A split function showing 2% functioning of the right kidney and 98% of the left kidney. The patient scheduled for a right nephrectomy. 6. Microcytic hypochromic anemia. On iron supplements. Will order an iron panel on this patient. 7. Fluid, electrolytes and nutrition. Continue carbohydrate controlled low cholesterol diet. 8. Deep venous thrombosis prophylaxis with bilateral sequential compression devices. 9. Gastrointestinal prophylaxis. Histamine 2 receptor blockers. PLAN: Continue current management. Call a cardiology consult for cardiac clearance for surgery. Case discussed with Dr. Smith. GIORGIO SMITH MD, AM/MIRA Conf#: [id number] DID#: [id number] MTDD
[2016-11-21] MEDS ORDERED: MEROPENEM 1 GM/100 ML (PMX) 100 ML IVPB SCH (14:00)
--- NOTE | 2016-11-21 14:17 | RADRPT ---
Echocardiogram Report Patient Name: EVONNE NOLEN Gender: Female Date: 1965 Study Date: 21-Nov-2016 Mixing Machine Feeder: [facility] Location: 2247 Ref. Physician: GIORGIO VIDES Quality: Technically Difficult Study Procedures: Transthoracic echocardiogram with complete 2D, M-Mode, and doppler examination. Indications: Evaluate Left Ventricular function. 2D/M Mode Doppler Measurement Value Normal Ranges Measurement Value Normal Ranges LVIDd 2D 5.2 3.5 - 5.6 cm AV Peak Rustam 1.4 m/sec LVIDs 2D 3.6 2.1 - 4.1 cm AV Peak PG 8.1 mmHg LVPWd 2D 1.3 0.6 - 1.1 cm LVOT Peak Rustam 1.2 m/sec IVSd 2D 1.3 0.6 - 1.1 cm LVOT Peak PG 5.3 mmHg AoR Diam 2D 2.1 2.0 - 3.7 cm MV E Peak Rustam 1.0 m/sec EDV 2D 126.8 cm3 MV A Peak Rustam 1.1 m/sec ESV 2D 48.5 cm3 MV E/A 0.9 LA Dimen 2D 3.4 2.3 - 4.0 cm MV Decel Time 208 msec MV Decel Mineral 5 MV E/A 0.9 Findings Left Ventricle: Normal left ventricular systolic function. Normal left ventricular cavity size. Mild concentric left ventricular hypertrophy. Ejection fraction is visually estimated at 65 %. Abnormal Diastolic Function. Right Ventricle: Normal right ventricular size. Normal right ventricular systolic function. Left Atrium: The left atrium is normal in size. Right Atrium: The right atrium is normal in size. Mitral Valve: Mild mitral leaflet calcification. Trace mitral regurgitation. Aortic Valve: Normal appearance of the aortic valve. No significant aortic stenosis or insufficiency. Tricuspid Valve: Tricuspid valve not well visualized. There is trace tricuspid regurgitation. Pulmonic Valve: Pulmonic valve not well visualized. There is trace pulmonic regurgitation. Pericardium: There is an anterior echo free space consistent with epicardial fat pad. Aorta: Normal aortic root. IVC: Normal size and normal respiratory collapse consistent with normal right atrial pressure. Conclusions 1.Normal left ventricular systolic function. Normal left ventricular cavity size. Mild concentric left ventricular hypertrophy. Ejection fraction is visually estimated at 65 %. Abnormal Diastolic Function. 2.Mild mitral leaflet calcification. Trace mitral regurgitation. 3.Normal appearance of the aortic valve. No significant aortic stenosis or insufficiency. 4.Tricuspid valve not well visualized. There is trace tricuspid regurgitation. Electronically Signed By: Kp Corral 21-Nov-2016 14:16:28 -0700 Patient Name: EVONNE NOLEN Study Date: 21-Nov-2016 [id number]
--- NOTE | 2016-11-21 16:34 | CONS ---
DATE OF ADMISSION: 11/17/2016 DATE OF CONSULTATION: 11/21/2016 REFERRING PHYSICIAN: Robin Carney NP REASON FOR CONSULTATION: Cardiovascular preop evaluation. CHIEF COMPLAINT: Prerenal stone, abdominal pain. HISTORY OF PRESENT ILLNESS: Thank you for this referral. History obtained from alise Carney on with the staff and physicians and review of the chart. This is a 51-year-old female wit h history of diabetes, mild hypertension, morbid obesity who has had recurrent renal stones and neph rolithiasis. The patient has had urethral stent been placed in. She has been transferred to our [facility]]ty for recurrent infection and ESBL in the urine. She has been scheduled for laparoscopic nephr ectomy. I was kindly asked to consult prior to surgery. The patient denies any chest pain or pressu re, denies any palpitation to me. She said that she is able to walk more than 3 to 4 blocks with no chest pain or pressures. Patient denies any cardiac complication with previous surgeries. PAST MEDICAL HISTORY: History of diabetes, morbid obesity, urinary tract infection and recurrent re nal stones. Severe mild hypertension. SOCIAL HISTORY: The patient is a Taoism, denies smoking or drug abuse. FAMILY HISTORY: No reported early coronary artery disease. MEDICATIONS: Prior to admission as per medication reconciliation, personally reviewed, however, as metformin. At present Macrobid, Flomax and Sertraline. CURRENT MEDICATIONS: As per medication reconciliation, personally reviewed. REVIEW OF SYSTEMS: Otherwise, she denied all other except for above-mentioned, abdominal discomfort also has weakness. PHYSICAL EXAMINATION: VITAL SIGNS: Temperature 97.9, heart rate of 73, blood pressure 98/47, respiration rate of 16, satu rating 95%. HEENT: Normocephalic, atraumatic, morbidly obese female. Pupils are equal. CARDIOVASCULAR: Regular rate and rhythm, systolic murmur. PULMONARY: With no wheezes or rhonchi. GASTROINTESTINAL: Obese, soft. Mild tender or pressure on the right side. EXTREMITIES: With trivial edema in lower extremity. NEUROLOGIC: Awake and alert. PSYCHIATRIC: Calm, pleasant. LABORATORY DATA: WBC of 5.9, hemoglobin 11.5, platelets 221. Sodium 137, potassium 4.6, BUN of 16, creatinine 0.79, glucose 209. DIAGNOSTIC DATA: Chest x-ray done today shows unremarkable chest. Lungs costophrenic angles are cl ear. Urine has showed E. coli ESBL. Echocardiogram was personally reviewed, which showed normal LV size and ejection fraction of about 65%. EKG showed normal sinus rhythm, nonspecific ST abnormalit ies. ASSESSMENT AND PLAN: 1. Cardiovascular preop evaluation. 2. Extended-spectrum beta-lactamase urinary tract infection. 3. Recurrent renal stones. 4. Diabetes. Hemoglobin A1c of 7.7. 5. History of hypertension, under good control. 6. Right renal staghorn calculus, status post right ureteral stent and apparently nonfunctioning at [facility] right kidney. 7. Anemia, on iron. 8. Morbid obesity. RECOMMENDATIONS: The patient denies any anginal chest pain and per her report has more than 2 to 3 blocks of exercise tolerance which is equivalent of more than 4 to 5 minutes. No further cardiac wo rkup at this point is indicated or would be needed or felt to be beneficial prior to the surgery. S he has multiple risk factors including diabetes, we place her at mild to moderate risk of cardiovasc ular event. However, no further cardiac workup is needed. Patient also is a Taoism and if transfusion is needed would make the matter more complicated. The patient is to restart iron. D iabetic management as per internal medicine. Thank you for this referral. Discussed with Dr. Laughlin. Dictated By: ISAAK WIGGINS MD AV/MIRA Conf#: [id number] DID#: [id number] CC: LYNN LAUGHLIN MD; GIORGIO VIDES ENVIRONMENTAL PROPERTY ASSESSOR;*End*
[2016-11-21] MEDS: ERTAPENEM SODIUM 1 GM in SOD CHLORIDE 0.9% 100 ML IVPB SCH (18:41)
--- NOTE | 2016-11-21 20:23 | RADRPT ---
Vent Rate: 68 bpm RR Interval: 0 msec FL Interval: 134 msec QRS Duration: 86 msec QT Interval: 412 msec QTC Interval: 438 msec P-R-T [place]: 37 - 17 - -5 degrees Normal sinus rhythm Nonspecific T wave abnormality Abnormal ECG Electronically Signed By: Santiago Albert [id number]
[2016-11-21 20:26] VITALS: BP 126/63; RESP 17
[2016-11-21] MEDS: HYDROCODONE/APAP (10/325) TAB PO PRN (20:40)
[2016-11-21] MEDS: DOCUSATE SODIUM 100 MG CAP PO SCH (20:41)
[2016-11-21] MEDS: INSULIN GLARGINE [LANtus] 3 ML PEN SC SCH (20:47)
--- NOTE | 2016-11-21 21:22 | CONS ---
DATE OF ADMISSION: 11/17/2016 DATE OF CONSULTATION: 11/21/2016 TYPE OF CONSULTATION: Infectious disease. REASON FOR CONSULTATION: Antibiotic management. HISTORY OF PRESENT ILLNESS: Aline Noble is a 51-year-old female with a number of prob lems who comes in with probable urinary tract infection and is being seen for antibiotic management. Her problems include: 1. Adult-onset diabetes mellitus. 2. Panic disorder. 3. History of ureteral stent placed 2 months ago at [facility]. 4. Bilateral flank and suprapubic pain. 5. Hematuria. 6. Obesity with a BMI of 38. The stent was placed at [facility] in September of this year. She was transferred to [facility] and was ac cepted by Dr. Laughlin, urologist. The patient is a Christianity. On admission, her white count was 6.5, H and H of 11.4 and 34.2, platelet count 234,000. BUN and creatinine are 18 over 0.84. He r glucose random was 417. The patient was placed initially on Cipro, and she is growing E. coli, la ctobacillus and E. coli ESBL from her urine sensitive to imipenem, trimethoprim sulfa and tobramycin . The patient was started on meropenem. Currently she denies complaints of flank pain. She has ex tended-spectrum beta-lactamase urinary tract infection. She has had a right renal staghorn calculus , status post right ureteral stent, right renal atrophy with a nuclear medicine scan showing severel y reduced flow and function of the small right kidney. She has a split function showing 2% function ing of right kidney, 98% of left kidney. She is scheduled for right nephrectomy. PAST MEDICAL HISTORY: Operations as outlined. FAMILY HISTORY: Noncontributory. SOCIAL HISTORY: She does not smoke, drink or abuse drugs. ALLERGIES: NONE TO PENICILLIN, SULFA OR FOODS. MEDICATIONS: Per chart. REVIEW OF SYSTEMS: As per HPI. PHYSICAL EXAMINATION: GENERAL: The patient is a morbidly obese female who is alert, responsive, in no acute distress. VITAL SIGNS: Stable. She is afebrile. SKIN: Without generalized rash. HEENT: Within normal limits. NECK: Supple. LYMPH NODES: None palpable. CHEST: Decreased breath sounds at the bases. HEART: Without murmur or gallop. ABDOMEN: Soft, nontender, nondistended without organosplenomegaly or masses. EXTREMITIES: Without cyanosis, clubbing or edema. RECTAL AND GENITAL: Deferred. NEUROLOGIC: No focal neurological abnormalities. IMPRESSION AND PLAN: The patient has extended-spectrum beta lactamase, currently on meropenem. We can continue the meropenem or change her to ertapenem or Invanz, which is once a day and should be j ust as effective. I will dictate my findings to the hospitalist. Dictated By: NGA MACHADO MD, JD/MIRA Conf#: [id number] DID#: [id number]
[2016-11-21] MEDS: ZOLPIDEM 5 MG TAB PO PRN (22:09)
[2016-11-22] MEDS: ACCU-CHEK XX SCH (02:00)
[2016-11-22] MEDS: morphine 10 MG INJ IV PRN ×5 (03:58→20:43)
[2016-11-22] MEDS: SOD CHLORIDE 0.9% 1,000 ML IV SCH (04:01)
[2016-11-22 06:10] LABS: ADD SCAN DIFF NO; BASOPHILS % 0.4 % (0.0-2.0); EOSINOPHILS # 0.3 10^3/ul (0.0-0.5); HEMATOCRIT 34.6 % (37.0-47.0); HEMOGLOBIN 11.2 g/dl (12.0-16.0); LYMPHOCYTES # 2.5 10^3/ul (0.8-2.9); LYMPHOCYTES % 34.6 % (15.0-51.0); MEAN CORPUSCULAR HEMOGLOBIN 26.2 pg (29.0-33.0); MEAN CORPUSCULAR HGB CONC 32.4 g/dl (32.0-37.0); MEAN PLATELET VOLUME 9.1 fl (7.4-10.4); MONOCYTE # 0.5 10^3/ul (0.3-0.9); MONOCYTES % 6.6 % (0.0-11.0); NEUTROPHIL # 3.9 10^3/ul (1.6-7.5); PLATELET COUNT 256 10^3/UL (140-415); RED BLOOD COUNT 4.27 10^6/ul (4.20-5.40); RED CELL DISTRIBUTION WIDTH 13.6 % (11.5-14.5); WHITE BLOOD COUNT 7.3 10^3/ul (4.8-10.8)
[2016-11-22 06:12] LABS: IRON 60 ug/dl (35-150)
[2016-11-22 06:15] LABS: ALBUMIN 3.5 g/dl (3.3-4.9)
[2016-11-22 06:16] LABS: POTASSIUM 4.2 mmol/L (3.5-5.1)
[2016-11-22 06:18] LABS: ALBUMIN/GLOBULIN RATIO 1.06; BILIRUBIN,INDIRECT 0.1 mg/dl (0-1.1); BILIRUBIN,TOTAL 0.1 mg/dl (0.2-1.3); CREATININE 0.81 mg/dl (0.44-1.00); MAGNESIUM 1.9 mg/dl (1.7-2.5); PHOSPHORUS 4.1 mg/dl (2.5-4.9); TOTAL PROTEIN 6.8 g/dl (6.1-8.1)
[2016-11-22 06:19] LABS: CALCIUM 8.8 mg/dl (8.4-10.2)
[2016-11-22 06:21] LABS: TOTAL IRON BINDING CAPACITY 332 ug/dl (241-421)
[2016-11-22 07:30] VITALS: BP 108/54; RESP 20
[2016-11-22] MEDS: INSULIN ASPART [NOVOLOG] 3 ML PEN SC SCH ×7 (08:00→20:48)
[2016-11-22] MEDS ORDERED: PEG/ELECTROLYTES 4L BTL PO ONE (08:00)
[2016-11-22] MEDS: FERROUS SULFATE 60 MG/ML 5ML CUP NGT SCH ×2 (08:11→20:43)
[2016-11-22] MEDS: SERTRALINE 50 MG TAB PO SCH (08:11)
[2016-11-22] MEDS: FAMOTIDINE 20 MG INJ IV SCH (08:11)
[2016-11-22] MEDS: BENAZEPRIL 10 MG TAB PO SCH (09:00)
[2016-11-22] MEDS: ONDANSETRON 4 MG INJ IV PRN (10:12)
[2016-11-22] MEDS ORDERED: ONDANSETRON 4 MG INJ IV STA (11:29)
--- NOTE | 2016-11-22 13:49 | PN ---
DATE: 11/22/2016 SUBJECTIVE: No acute changes. Patient is alert, sitting in bed complaining of flank pain and lower pelvic pain, but also burning with urination, no fevers. LABORATORIES: WBC 7.3, no shift, no bands, BUN 14, creatinine 0.81. MICROBIOLOGY: Urine culture growing E. coli ESBL. ANTIMICROBIALS: The patient is on Invanz. PHYSICAL EXAMINATION: GENERAL: This is a morbidly obese, well-developed, middle-aged woman who is awake, in no d istress. HEENT: Head atraumatic, normocephalic. Sclerae anicteric. Buccal mucosa pink. NECK: Supple. CHEST: Rise symmetrical. Breath sounds clear. HEART: S1, S2. ABDOMEN: Soft, bowel tones present. EXTREMITIES: Without cyanosis. ASSESSMENT: 1. Escherichia coli extended-spectrum beta-lactamase pyelonephritis. 2. Morbid obesity. 3. Diabetes. 4. Hypertension. 5. History of ureteral stent placement placed 2 months ago. PLAN: The patient remains stable on appropriate antimicrobials. Urology follows her. Possible lap aroscopic right nephrectomy with ureterectomy and removal of right ureteral stent as per urology not e. Dictated By: CHELITA DAVIES MARINE SERVICE STATION ATTENDANT for NGA MACIAS/MIRA Conf#: [id number] DID#: [id number]
[2016-11-22] MEDS: DIPHENHYDRAMINE 25 MG CAP PO PRN (14:54)
--- NOTE | 2016-11-22 15:46 | PN ---
Date/Time of Note Date/Time of Note DATE: 11/22/16 TIME: 15:39 Assessment/Plan VTE Prophylaxis VTE Prophylaxis Intervention: SCD's Lines/Catheters IV Catheter Type (from Nrs): Peripheral IV Urinary Cath still in place: No Assessment/Plan Assessment/Plan 1. Extended-spectrum beta-lactamase urinary tract infection. on invenz 2. Right renal staghorn calculus. consider infected stone, needs to be removed , follow up with urology 3. Right renal atrophy with a nuclear medicine scan showing severely reduced flow and function of the small right kidney. A split function showing 2% functioning of the right kidney and 98% of the left kidney. The patient scheduled for a right nephrectomy 4. Type 2 diabetes mellitus. Uncontrolled. Hemoglobin A1c 7.7. on insulins 5. Essential hypertension. controlled. 6. Microcytic hypochromic anemia. On iron supplements. Will order an iron panel on this patient. 7. Fluid, electrolytes and nutrition. Continue carbohydrate controlled low cholesterol diet. 8. Deep venous thrombosis prophylaxis with bilateral sequential compression devices. Subjective 24 Hr Interval Summary Free Text/Dictation right flank and groin pain Exam/Review of Systems Vital Signs Vitals Vital Signs Date Time Temp Pulse Resp B/P Pulse Ox O2 Delivery O2 Flow Rate FiO2 11/22/16 07:30 97.6 61 20 108/54 96 Intake and Output 11/21/16 11/21/16 11/22/16 15:00 23:00 07:00 Intake Total 300 ml 2145 ml 1275 ml Balance 300 ml 2145 ml 1275 ml Exam Constitutional: alert, oriented, well developed Psych: nl mood/affect, no complaints Head: atraumatic, normocephalic Eyes: EOMI, PERRL, nl conjunctiva ENMT: nl external ears & nose, nl lips & teeth, nl nasal mucosa & septum Neck: non-tender, supple Respiratory: clear to auscultation, normal air movement, No congested cough, No crackles/rales, No diminished breath sounds, No intercostal retraction, No labored breathing, No other, No respirations, No tactile fremitus, No wheezing Cardiovascular: nl pulses, regular rate and rhythm, No S3, No S4, No bruits, No diastolic murmur, No edema, No gallop, No irregular rhythm, No jugular venous distention (JVD), No murmurs/extra sounds, No other, No rub, No systolic murmur Gastrointestinal: nl liver, spleen, non-tender, soft, No ascites, No bowel sounds, No distended, No firm, No hepatomegaly, No mass , No other, No rebound or guarding, No splenomegaly, No surgical scars, No tender Musculoskeletal: nl extremities to inspection Extremities: normal pulses, No calf tenderness, No clubbing, No cyanosis, No edema, No other, No palpable cord, No pitting pedal edema, No tenderness Neurological: FUEL MANAGER II-XII intact, nl mental status, nl speech, nl strength Skin: nl turgor Lymph: nl lymph nodes Results Result Diagram: 11/22/16 0435 11/22/16 0435 Results 24 hrs Laboratory Tests Test 11/21/16 17:29 11/21/16 20:43 11/22/16 01:57 11/22/16 04:35 Bedside Glucose 108 240 H 94 White Blood Count 7.3 # Red Blood Count 4.27 Hemoglobin 11.2 L Hematocrit 34.6 L Mean Corpuscular Volume 81.0 L Mean Corpuscular Hemoglobin 26.2 L Mean Corpuscular Hemoglobin Concent 32.4 Red Cell Distribution Width 13.6 Platelet Count 256 Mean Platelet Volume 9.1 Neutrophils % 54.0 Lymphocytes % 34.6 Monocytes % 6.6 Eosinophils % 4.0 Basophils % 0.4 Nucleated Red Blood Cells % 0.0 Neutrophils # 3.9 Lymphocytes # 2.5 Monocytes # 0.5 Eosinophils # 0.3 Basophils # 0.0 Nucleated Red Blood Cells # 0.0 Sodium Level 140 Potassium Level 4.2 Chloride Level 101 Carbon Dioxide Level 29 Anion Gap 14 Blood Urea Nitrogen 14 Creatinine 0.81 Glucose Level 103 # Calcium Level 8.8 Phosphorus Level 4.1 Magnesium Level 1.9 Iron Level 60 Total Iron Binding Capacity 332 Percent Iron Saturation 18 L Ferritin 18.8 Total Bilirubin 0.1 L Direct Bilirubin 0.00 Indirect Bilirubin 0.1 Aspartate Amino Transf (AST/SGOT) 27 Alanine Aminotransferase (ALT/SGPT) 25 Alkaline Phosphatase 81 Total Protein 6.8 Albumin 3.5 Globulin 3.30 H Albumin/Globulin Ratio 1.06 Test 11/22/16 08:04 11/22/16 10:37 11/22/16 12:01 Bedside Glucose 112 143 120 Medications Medications Current Medications Benazepril HCl (Lotensin) 10 mg DAILY PO ; Start 5/12/17 at 09:00 Diphenhydramine HCl (Benadryl) 25 mg Q6H PRN PO ITCHING Last administered on 14:54; Admin Dose 25 MG; Start 11/17/16 at 23:00 Ondansetron HCl (Zofran Inj) 4 mg Q4H PRN IV NAUSEA AND/OR VOMITING Last administered on 11/22/16 10:12; Admin Dose 4 MG; Start 11/17/16 at 23:00 Diagnostic Test (Pha) (Accu-Chek) Check 2 am Accucheck only if... 02 XX ; Start 11/18/16 at 02:00 Acetaminophen/ Hydrocodone Bitart ([place] ()) 1 tab Q4H PRN PO PAIN Last administered on 11/21/16 20:40; Admin Dose 1 TAB; Start 11/17/16 at 23:30 Miscellaneous Information 1 ea NOTE XX ; Start 11/17/16 at 23:30 Glucose (Glutose) 15 gm Q15M PRN PO DECREASED GLUCOSE; Start 11/17/16 at 23:30 Glucose (Glutose) 22.5 gm Q15M PRN PO DECREASED GLUCOSE; Start 11/17/16 at 23: 30 Dextrose (D50w Syringe) 25 ml Q15M PRN IV DECREASED GLUCOSE; Start 11/17/16 at 23:30 Dextrose (D50w Syringe) 50 ml Q15M PRN IV DECREASED GLUCOSE; Start 11/17/16 at 23:30 Glucagon (Glucagen) 1 mg Q15M PRN IM DECREASED GLUCOSE; Start 11/17/16 at 23:30 Glucose (Glutose) 15 gm Q15M PRN BUCCAL DECREASED GLUCOSE; Start 11/17/16 at 23 :30 Famotidine (Pepcid Iv) 20 mg DAILY IV Last administered on 11/22/16 08:11; Admin Dose 20 MG; Start 11/18/16 at 11:30 Docusate Sodium (Colace) 200 mg HS PO Last administered on 11/21/16 20:41; Admin Dose 200 MG; Start 11/18/16 at 21:00 Sertraline HCl (Zoloft) 50 mg DAILY PO Last administered on 11/22/16 08:11; Admin Dose 50 MG; Start 11/19/16 at 09:00 Trazodone HCl (Desyrel) 50 mg HS PRN PO ANXIETY; Start 11/18/16 at 12:30 Ferrous Sulfate 300 mg 300 mg BID NGT Last administered on 11/22/16 08:11; Admin Dose 300 MG; Start 11/20/16 at 09:00 Sodium Chloride (NS) 1,000 ml @ 75 mls/hr [id number] IV Last administered on 11/22 04:01; Admin Dose 75 MLS/HR; Start 11/18/16 at 12:30 Morphine Sulfate (morphine) 5 mg Q4H PRN IV PAIN Last administered on 12:18; Admin Dose 5 MG; Start 11/18/16 at 22:00 Zolpidem Tartrate (Ambien) 10 mg HS PRN PO INSOMNIA Last administered on 22:09; Admin Dose 10 MG; Start 11/18/16 at 22:00 Insulin Glargine 22 unit 22 unit HS SC Last administered on 11/21/16 20:47; Admin Dose 22 UNIT; Start 11/19/16 at 21:00 Ertapenem/Sodium Chloride (Invanz/NS) 100 ml @ 200 mls/hr Q24H IVPB Last administered on 11/21/16 18:41; Admin Dose 200 MLS/HR; Start 11/21/16 at 17:00 GEORGETTE PRICE MD November 22, 2016 15:46
[2016-11-22] MEDS: ERTAPENEM SODIUM 1 GM in SOD CHLORIDE 0.9% 100 ML IVPB SCH (16:55)
[2016-11-22] MEDS: INSULIN GLARGINE [LANtus] 3 ML PEN SC SCH (20:03)
[2016-11-22 20:07] VITALS: BP 101/51; RESP 19
[2016-11-22] MEDS: DOCUSATE SODIUM 100 MG CAP PO SCH (20:56)
[2016-11-22] MEDS ORDERED: INSULIN GLARGINE [LANtus] 3 ML PEN SC ONE (21:00)
[2016-11-22] MEDS: ZOLPIDEM 5 MG TAB PO PRN (22:11)
[2016-11-22] MEDS: HYDROmorphONE 1 MG/ML SYG IV PRN (23:14)
[2016-11-23] VITALS (23 sets, daily range): BP systolic 80–148; BP diastolic 32–79; PULSE 66–126; RESP 10–30
[2016-11-23] MEDS ORDERED: INSULIN ASPART [NOVOLOG] 3 ML PEN SC SCH
[2016-11-23] MEDS: SOD CHLORIDE 0.9% 1,000 ML IV SCH ×5 (00:01→23:52)
[2016-11-23] MEDS: ACCU-CHEK XX SCH (01:55)
[2016-11-23] MEDS: ONDANSETRON 4 MG INJ IV PRN ×2 (04:38→21:45)
[2016-11-23] MEDS: HYDROmorphONE 1 MG/ML SYG IV PRN ×3 (04:38→20:34)
[2016-11-23] MEDS: Insulin NOVOLOG SS MODERATE Algorithm(NPO/TPN/ENTERAL FEEDS) SC SCH ×4 (05:57→17:17)
[2016-11-23] MEDS: INSULIN ASPART [NOVOLOG] 3 ML PEN SC SCH ×3 (06:50→17:16)
[2016-11-23 06:51] LABS: ADD SCAN DIFF NO
[2016-11-23 06:54] LABS: BASOPHILS % 0.3 % (0.0-2.0); EOSINOPHILS # 0.2 10^3/ul (0.0-0.5); HEMATOCRIT 34.1 % (37.0-47.0); HEMOGLOBIN 11.1 g/dl (12.0-16.0); LYMPHOCYTES # 1.9 10^3/ul (0.8-2.9); LYMPHOCYTES % 29.2 % (15.0-51.0); MEAN CORPUSCULAR HEMOGLOBIN 26.2 pg (29.0-33.0); MEAN CORPUSCULAR HGB CONC 32.6 g/dl (32.0-37.0); MEAN CORPUSCULAR VOLUME 80.6 fl (82.0-101.0); MEAN PLATELET VOLUME 8.9 fl (7.4-10.4); MONOCYTE # 0.4 10^3/ul (0.3-0.9); MONOCYTES % 6.5 % (0.0-11.0); NEUTROPHILS % 60.5 % (39.0-77.0); PLATELET COUNT 245 10^3/UL (140-415); RED BLOOD COUNT 4.23 10^6/ul (4.20-5.40); RED CELL DISTRIBUTION WIDTH 13.8 % (11.5-14.5); WHITE BLOOD COUNT 6.6 10^3/ul (4.8-10.8)
--- NOTE | 2016-11-23 07:17 | PN ---
DATE: 11/22/2016 CARDIOLOGY FOLLOWUP ____ discussed with the staff. Patient had no chest pain ____ palpitations. Abdominal pain has imp roved. MEDICATIONS: Reviewed. PHYSICAL EXAMINATION: VITAL SIGNS: Temperature 97.6, heart rate of 61, blood pressure 108/54, respiratory rate of 20. HEENT: Normocephalic, atraumatic. GENERAL: Obese ____ no acute distress. CARDIOVASCULAR: Regular rate and rhythm, systolic murmur. PULMONARY: With no wheezes or rhonchi. GASTROINTESTINAL: Obese, soft, mild tenderness to palpation on the right side. EXTREMITIES: ____ lower extremity edema. NEUROLOGIC: Awake and alert, responds appropriately. PSYCHIATRIC: Appears to be calm and pleasant. LABORATORY DATA: WBC of 7.3, hemoglobin 11.2, platelets of 256. Sodium 140, potassium 4.2, BUN of 14, creatinine 0.81, glucose 103. ASSESSMENT: 1. Cardiovascular preoperative evaluation. 2. Recurrent renal stone and nonfunctioning kidney. 3. Extended-spectrum beta-lactamase urinary tract infection. 4. Diabetes. 5. Hypertension. 6. History of anemia. 7. Morbid obesity. RECOMMENDATIONS: Please see my full consultation of yesterday for details regarding cardiovascular preop evaluation. We will continue with the current cardiac care. Diabetic control as per internal medicine. Antibiotic as per ID recommendation. Dictated By: ISAAK WIGGINS MD AV/MIRA Conf#: [id number] DID#: [id number] CC: NGA MACHADO MD; GIORGIO VIDES NP; LYNN SERNA MD;*[facility]*
[2016-11-23 07:18] LABS: CALCIUM 9.1 mg/dl (8.4-10.2); CREATININE 0.78 mg/dl (0.44-1.00); POTASSIUM 3.9 mmol/L (3.5-5.1)
[2016-11-23] MEDS: FAMOTIDINE 20 MG INJ IV SCH (08:36)
[2016-11-23] MEDS: BENAZEPRIL 10 MG TAB PO SCH (08:41)
[2016-11-23] MEDS: FERROUS SULFATE 60 MG/ML 5ML CUP NGT SCH ×2 (08:41→20:42)
[2016-11-23] MEDS: SERTRALINE 50 MG TAB PO SCH (08:41)
--- NOTE | 2016-11-23 09:55 | PN ---
DATE: 11/23/2016 CARDIOLOGY FOLLOWUP SUBJECTIVE: Discussed with the staff. The patient with no chest pain or pressure. No palpitations . Still has abdominal pain. No . No orthopnea, no PND. MEDICATIONS: Reviewed. PHYSICAL EXAMINATION: VITAL SIGNS: Temperature 97.8, heart rate of 63, blood pressure 111/56, respiration rate of 16, sat urating 95%. HEENT: Normocephalic, atraumatic, morbidly obese female in no acute distress. Pupils are equal and round. CARDIOVASCULAR: Regular rate and rhythm, systolic murmur. PULMONARY: With no wheezes or rhonchi. GASTROINTESTINAL: Soft, mild tenderness on pressure, mostly on the right side. No rebound or guard ing. EXTREMITIES: With trivial lower extremity edema. NEUROLOGIC: Awake, alert. PSYCHIATRIC: Calm and pleasant. LABORATORY: WBC of 6.6, hemoglobin 11.1, platelets 245. Sodium 138, potassium 3.9, BUN of 10, crea tinine 0.78, glucose 115. ASSESSMENT AND PLAN: 1. Cardiovascular preop evaluation. 2. Extended-spectrum beta-lactamase urinary tract infection on antibiotics. 3. Right renal staghorn calculus. 4. Right renal atrophy. 5. Hypertension. 6. Anemia. 7. Diabetes. RECOMMENDATIONS: We will continue with the current cardiac care. Antibiotic as per internal medici ne and ID recommendations. Awaiting surgery. Dictated By: ISAAK BRICE/MIRA Conf#: [id number] DID#: [id number] CC: ;*EndCC*
[2016-11-23] MEDS ORDERED: BUPIVACAINE 0.5% (SDV) 30 ML INJ ONE ×2 (11:48→16:49)
[2016-11-23] MEDS ORDERED: HEPARIN 1000 UNITS/NS (A-LINE) 0 ML ONE (11:48)
[2016-11-23] MEDS ORDERED: MIDAZOLAM 1 MG/ML 2 ML INJ ONE (11:59)
[2016-11-23] MEDS ORDERED: morphine SULFATE/PF (10 MG/10 ML) INJ ONE (12:01)
[2016-11-23] MEDS ORDERED: PHENYLephrine (100 MCG/ML) 5ML SYG ONE (12:02)
[2016-11-23] MEDS ORDERED: ONDANSETRON 4 MG INJ IV PRN (12:30)
[2016-11-23] MEDS ORDERED: HYDROmorphONE (0.2 MG/ML) 10ML SYG IV PRN (12:30)
[2016-11-23] MEDS ORDERED: NALOXONE (0.4 MG/ML) INJ IV PRN (12:30)
[2016-11-23] MEDS ORDERED: MEPERIDINE 25 MG INJ IV PRN (12:30)
[2016-11-23] MEDS ORDERED: DIPHENHYDRAMINE 50 MG INJ IV PRN (12:30)
[2016-11-23] MEDS ORDERED: HEPARIN 1000 UNITS/ML 10 ML INJ ONE (13:59)
--- NOTE | 2016-11-23 14:23 | PN ---
Date/Time of Note Date/Time of Note DATE: 11/23/16 TIME: 14:19 Assessment/Plan VTE Prophylaxis VTE Prophylaxis Intervention: SCD's Lines/Catheters IV Catheter Type (from Nrs): Peripheral IV Urinary Cath still in place: No Assessment/Plan Assessment/Plan 1. Extended-spectrum beta-lactamase urinary tract infection. on invenz 2. Right renal staghorn calculus. consider infected stone, needs to be removed , surgery 3. Right renal atrophy with a nuclear medicine scan showing severely reduced flow and function of the small right kidney. A split function showing 2% functioning of the right kidney and 98% of the left kidney. Surgery today 4. Type 2 diabetes mellitus. Uncontrolled. Hemoglobin A1c 7.7. on insulins 5. Essential hypertension. controlled. 6. Microcytic hypochromic anemia. On iron supplements. Will order an iron panel on this patient. 7. Fluid, electrolytes and nutrition. Continue carbohydrate controlled low cholesterol diet. 8. Deep venous thrombosis prophylaxis with bilateral sequential compression devices. Subjective 24 Hr Interval Summary Free Text/Dictation right flank pain Exam/Review of Systems Vital Signs Vitals Vital Signs Date Time Temp Pulse Resp B/P Pulse Ox O2 Delivery O2 Flow Rate FiO2 11/23/16 07:57 97.8 63 16 111/56 95 Intake and Output 11/22/16 11/22/16 11/23/16 15:00 23:00 07:00 Intake Total 1440 ml 1780 ml Balance 1440 ml 1780 ml Exam Constitutional: alert, oriented, well developed Psych: nl mood/affect, no complaints Head: atraumatic, normocephalic Eyes: EOMI, nl conjunctiva, nl lids ENMT: nl external ears & nose, nl lips & teeth, nl nasal mucosa & septum Neck: non-tender, supple Respiratory: clear to auscultation, normal air movement, No congested cough, No crackles/rales, No diminished breath sounds, No intercostal retraction, No labored breathing, No other, No respirations, No tactile fremitus, No wheezing Cardiovascular: nl pulses, regular rate and rhythm, No S3, No S4, No bruits, No diastolic murmur, No edema, No gallop, No irregular rhythm, No jugular venous distention (JVD), No murmurs/extra sounds, No other, No rub, No systolic murmur Gastrointestinal: nl liver, spleen, non-tender, soft, No ascites, No bowel sounds, No distended, No firm, No hepatomegaly, No mass , No other, No rebound or guarding, No splenomegaly, No surgical scars, No tender Musculoskeletal: nl extremities to inspection Extremities: normal pulses, No calf tenderness, No clubbing, No cyanosis, No edema, No other, No palpable cord, No pitting pedal edema, No tenderness Neurological: DIETITIAN TEACHING II-XII intact, nl mental status, nl speech, nl strength Skin: nl turgor Lymph: nl lymph nodes Results Result Diagram: 11/23/16 0555 11/23/16 0555 Results 24 hrs Laboratory Tests Test 11/22/16 17:01 11/22/16 20:48 11/22/16 23:58 11/23/16 05:55 Bedside Glucose 121 103 104 White Blood Count 6.6 Red Blood Count 4.23 Hemoglobin 11.1 L Hematocrit 34.1 L Mean Corpuscular Volume 80.6 L Mean Corpuscular Hemoglobin 26.2 L Mean Corpuscular Hemoglobin Concent 32.6 Red Cell Distribution Width 13.8 Platelet Count 245 Mean Platelet Volume 8.9 Neutrophils % 60.5 Lymphocytes % 29.2 Monocytes % 6.5 Eosinophils % 3.0 Basophils % 0.3 Nucleated Red Blood Cells % 0.0 Neutrophils # 4.0 Lymphocytes # 1.9 Monocytes # 0.4 Eosinophils # 0.2 Basophils # 0.0 Nucleated Red Blood Cells # 0.0 Activated Partial Thromboplast Time 40.4 H Sodium Level 138 Potassium Level 3.9 Chloride Level 103 Carbon Dioxide Level 28 Anion Gap 11 Blood Urea Nitrogen 10 Creatinine 0.78 Glucose Level 115 Calcium Level 9.1 Test 11/23/16 05:56 11/23/16 11:03 Bedside Glucose 105 120 Medications Medications Current Medications Benazepril HCl (Lotensin) 10 mg DAILY PO ; Start 11/18/16 at 09:00 Diphenhydramine HCl (Benadryl) 25 mg Q6H PRN PO ITCHING Last administered on 14:54; Admin Dose 25 MG; Start 11/17/16 at 23:00 Ondansetron HCl (Zofran Inj) 4 mg Q4H PRN IV NAUSEA AND/OR VOMITING Last administered on 11/23/16 04:38; Admin Dose 4 MG; Start 11/17/16 at 23:00 Diagnostic Test (Pha) (Accu-Chek) Check 2 am Accucheck only if... 02 XX ; Start 11/18/16 at 02:00 Acetaminophen/ Hydrocodone Bitart ([place] (10)) 1 tab Q4H PRN PO PAIN Last administered on 11/21/16 20:40; Admin Dose 1 TAB; Start 11/17/16 at 23:30 Miscellaneous Information 1 ea NOTE XX ; Start 11/17/16 at 23:30 Glucose (Glutose) 15 gm Q15M PRN PO DECREASED GLUCOSE; Start 11/17/16 at 23:30 Glucose (Glutose) 22.5 gm Q15M PRN PO DECREASED GLUCOSE; Start 11/17/16 at 23: 30 Dextrose (D50w Syringe) 25 ml Q15M PRN IV DECREASED GLUCOSE; Start 11/17/16 at 23:30 Dextrose (D50w Syringe) 50 ml Q15M PRN IV DECREASED GLUCOSE; Start 11/17/16 at 23:30 Glucagon (Glucagen) 1 mg Q15M PRN IM DECREASED GLUCOSE; Start 11/17/16 at 23:30 Glucose (Glutose) 15 gm Q15M PRN BUCCAL DECREASED GLUCOSE; Start 11/17/16 at 23 :30 Famotidine (Pepcid Iv) 20 mg DAILY IV Last administered on 11/23/16 08:36; Admin Dose 20 MG; Start 11/18/16 at 11:30 Docusate Sodium (Colace) 200 mg HS PO Last administered on 11/21/16 20:41; Admin Dose 200 MG; Start 11/18/16 at 21:00 Sertraline HCl (Zoloft) 50 mg DAILY PO Last administered on 11/22/16 08:11; Admin Dose 50 MG; Start 11/19/16 at 09:00 Trazodone HCl (Desyrel) 50 mg HS PRN PO ANXIETY; Start 11/18/16 at 12:30 Ferrous Sulfate 300 mg 300 mg BID NGT Last administered on 11/22/16 20:43; Admin Dose 300 MG; Start 11/20/16 at 09:00 Sodium Chloride (NS) 1,000 ml @ 75 mls/hr [id number] IV Last administered on 11/23 00:01; Admin Dose 75 MLS/HR; Start 11/18/16 at 12:30 Zolpidem Tartrate (Ambien) 10 mg HS PRN PO INSOMNIA Last administered on 22:11; Admin Dose 10 MG; Start 11/18/16 at 22:00 Insulin Glargine 22 unit 22 unit HS SC Last administered on 11/21/16 20:47; Admin Dose 22 UNIT; Start 11/19/16 at 21:00 Ertapenem/Sodium Chloride (Invanz/NS) 100 ml @ 200 mls/hr Q24H IVPB Last administered on 11/22/16 16:55; Admin Dose 200 MLS/HR; Start 11/21/16 at 17:00 Hydromorphone HCl (Dilaudid) 0.5 mg Q4H PRN IV PAIN Last administered on 08:38; Admin Dose 0.5 MG; Start 11/22/16 at 22:00 Insulin Aspart (Novolog Insulin Pen) (Adult SC Insulin - Moder... Q6 SC ; Start 11/23/16 at 00:00 Naloxone HCl (Narcan) 0.2 mg Q2M PRN IV FOR RESP RATE 8 OR LESS; Start at 12:30 GEORGETTE PRICE MD November 23, 2016 14:23
--- NOTE | 2016-11-23 14:32 | CONS ---
Date/Time of Note Date/Time of Note DATE: 11/23/16 TIME: 14:31 Assessment/Plan Assessment/Plan Chief Complaint/Hosp Course SUBJECTIVE: No acute changes. No fevers, looks comfortable MICROBIOLOGY: Urine culture growing E. coli ESBL. ANTIMICROBIALS: The patient is on Invanz. PHYSICAL EXAMINATION: GENERAL: This is a morbidly obese, well-developed, middle-aged woman who is awake, in no distress. HEENT: Head atraumatic, normocephalic. Sclerae anicteric. Buccal mucosa pink. NECK: Supple. CHEST: Rise symmetrical. Breath sounds clear. HEART: S1, S2. ABDOMEN: Soft, bowel tones present. EXTREMITIES: Without cyanosis. ASSESSMENT: 1. Escherichia coli extended-spectrum beta-lactamase pyelonephritis. 2. Morbid obesity. 3. Diabetes. 4. Hypertension. 5. History of ureteral stent placement placed 2 months ago. PLAN: The patient remains stable, on appropriate antimicrobials. Pending right nephrectomy with ureterectomy and removal of right ureteral stent as per urology rec-s. [facility] staff Problems: Consultation Date/Type/Reason Admit Date/Time November 17, 2016 at 19:05 Initial Consult Date Type of Consultation: ID Exam/Review of Systems Vital Signs Vitals Vital Signs Date Time Temp Pulse Resp B/P Pulse Ox O2 Delivery O2 Flow Rate FiO2 11/23/16 07:57 97.8 63 16 111/56 95 Intake and Output 11/22/16 11/22/16 11/23/16 14:59 22:59 06:59 Intake Total 1440 ml 1780 ml Balance 1440 ml 1780 ml Results Result Diagram: 11/23/16 0555 11/23/16 0555 Results 24 hrs Laboratory Tests Test 11/22/16 17:01 11/22/16 20:48 11/22/16 23:58 11/23/16 05:55 Bedside Glucose 121 103 104 White Blood Count 6.6 Red Blood Count 4.23 Hemoglobin 11.1 L Hematocrit 34.1 L Mean Corpuscular Volume 80.6 L Mean Corpuscular Hemoglobin 26.2 L Mean Corpuscular Hemoglobin Concent 32.6 Red Cell Distribution Width 13.8 Platelet Count 245 Mean Platelet Volume 8.9 Neutrophils % 60.5 Lymphocytes % 29.2 Monocytes % 6.5 Eosinophils % 3.0 Basophils % 0.3 Nucleated Red Blood Cells % 0.0 Neutrophils # 4.0 Lymphocytes # 1.9 Monocytes # 0.4 Eosinophils # 0.2 Basophils # 0.0 Nucleated Red Blood Cells # 0.0 Activated Partial Thromboplast Time 40.4 H Sodium Level 138 Potassium Level 3.9 Chloride Level 103 Carbon Dioxide Level 28 Anion Gap 11 Blood Urea Nitrogen 10 Creatinine 0.78 Glucose Level 115 Calcium Level 9.1 Test 11/23/16 05:56 11/23/16 11:03 Bedside Glucose 105 120 Medications Medications Current Medications Benazepril HCl (Lotensin) 10 mg DAILY PO ; Start 11/18/16 at 09:00 Diphenhydramine HCl (Benadryl) 25 mg Q6H PRN PO ITCHING Last administered on 14:54; Admin Dose 25 MG; Start 11/17/16 at 23:00 Ondansetron HCl (Zofran Inj) 4 mg Q4H PRN IV NAUSEA AND/OR VOMITING Last administered on 11/23/16 04:38; Admin Dose 4 MG; Start 11/17/16 at 23:00 Diagnostic Test (Pha) (Accu-Chek) Check 2 am Accucheck only if... 02 XX ; Start 11/18/16 at 02:00 Acetaminophen/ Hydrocodone Bitart ([place] (10)) 1 tab Q4H PRN PO PAIN Last administered on 11/21/16 20:40; Admin Dose 1 TAB; Start 11/17/16 at 23:30 Miscellaneous Information 1 ea NOTE XX ; Start 11/17/16 at 23:30 Glucose (Glutose) 15 gm Q15M PRN PO DECREASED GLUCOSE; Start 11/17/16 at 23:30 Glucose (Glutose) 22.5 gm Q15M PRN PO DECREASED GLUCOSE; Start 11/17/16 at 23: 30 Dextrose (D50w Syringe) 25 ml Q15M PRN IV DECREASED GLUCOSE; Start 11/17/16 at 23:30 Dextrose (D50w Syringe) 50 ml Q15M PRN IV DECREASED GLUCOSE; Start 11/17/16 at 23:30 Glucagon (Glucagen) 1 mg Q15M PRN IM DECREASED GLUCOSE; Start 11/17/16 at 23:30 Glucose (Glutose) 15 gm Q15M PRN BUCCAL DECREASED GLUCOSE; Start 11/17/16 at 23 :30 Famotidine (Pepcid Iv) 20 mg DAILY IV Last administered on 11/23/16 08:36; Admin Dose 20 MG; Start 11/18/16 at 11:30 Docusate Sodium (Colace) 200 mg HS PO Last administered on 11/21/16 20:41; Admin Dose 200 MG; Start 11/18/16 at 21:00 Sertraline HCl (Zoloft) 50 mg DAILY PO Last administered on 11/22/16 08:11; Admin Dose 50 MG; Start 11/19/16 at 09:00 Trazodone HCl (Desyrel) 50 mg HS PRN PO ANXIETY; Start 11/18/16 at 12:30 Ferrous Sulfate 300 mg 300 mg BID NGT Last administered on 11/22/16 20:43; Admin Dose 300 MG; Start 11/20/16 at 09:00 Sodium Chloride (NS) 1,000 ml @ 75 mls/hr [id number] IV Last administered on 11/23 00:01; Admin Dose 75 MLS/HR; Start 11/18/16 at 12:30 Zolpidem Tartrate (Ambien) 10 mg HS PRN PO INSOMNIA Last administered on 22:11; Admin Dose 10 MG; Start 11/18/16 at 22:00 Insulin Glargine 22 unit 22 unit HS SC Last administered on 11/21/16 20:47; Admin Dose 22 UNIT; Start 11/19/16 at 21:00 Ertapenem/Sodium Chloride (Invanz/NS) 100 ml @ 200 mls/hr Q24H IVPB Last administered on 11/22/16 16:55; Admin Dose 200 MLS/HR; Start 11/21/16 at 17:00 Hydromorphone HCl (Dilaudid) 0.5 mg Q4H PRN IV PAIN Last administered on 08:38; Admin Dose 0.5 MG; Start 11/22/16 at 22:00 Insulin Aspart (Novolog Insulin Pen) (Adult SC Insulin - Moder... Q6 SC ; Start 11/23/16 at 00:00 Naloxone HCl (Narcan) 0.2 mg Q2M PRN IV FOR RESP RATE 8 OR LESS; Start at 12:30 CHELITA DAVIES NP November 23, 2016 14:32
[2016-11-23] MEDS: ERTAPENEM SODIUM 1 GM in SOD CHLORIDE 0.9% 100 ML IVPB SCH (17:00)
[2016-11-23] MEDS ORDERED: ROCURONIUM 50 MG INJ ONE (17:10)
[2016-11-23] MEDS ORDERED: GLYCOPYRROLATE 0.4 MG INJ ONE (17:10)
[2016-11-23] MEDS ORDERED: NEOSTIGMINE 3 MG/3 ML SYRINGE ONE (17:10)
[2016-11-23] MEDS ORDERED: LIDOCAINE 2% (SDV) 5 ML INJ ONE (17:10)
[2016-11-23] MEDS ORDERED: PROPOFOL 20 ML ONE (17:10)
[2016-11-23] MEDS ORDERED: ONDANSETRON 4 MG INJ ONE (17:11)
--- NOTE | 2016-11-23 17:14 | OPR ---
Date/Time of Note Date/Time of Note DATE: 11/23/16 TIME: 17:08 Operative Report Procedure Date: November 23, 2016 Preoperative Diagnosis Non functioning Right Kidney Staghorn right renal calculus right mid ureteral stone right chronic pyelonephritis Postoperative Diagnosis same as preop additional diagnoses: right retroperitoneal fibrosis intraperitoneal adhesions Operation Performed Laparoscopic lyis adhesions Right radical nephrectomy right ureterectomy right ureterolysis removal right ureteral stent Surgeon: LYNN SERNA undertaker assistant: MC BARBOUR M.D. Anesthesia: general Anesthesiologist: DEYSI ATKINSON MD Estimated Blood Loss: 100 - 150 ml's Specimens right kidney/gerota's fascia. right ureter right ureteral stent Tubes/Drains 16 fr kamara Complications: None Pt Condition Post Procedure: stable Disposition: PACU Operative\Procedure Findings severe retroperitoneal fibrosis Ureter severly adhered and cemented to pelvic structure ureter was dissected to 4 - 5 cm inferior to common iliac vessels after the specimen was removed from the pt, the ureter was opened and presence of impacted mid ureteral stone was confirmed to be in the specimen. LYNN SERNA November 23, 2016 17:14
[2016-11-23] MEDS: FENTAnyl 50 MCG/ML VIAL IV PRN ×5 (17:38→18:11)
[2016-11-23] MEDS: HYDROmorphONE (0.2 MG/ML) 10ML SYG IV PRN ×5 (17:43→18:09)
[2016-11-23] MEDS: INSULIN GLARGINE [LANtus] 3 ML PEN SC SCH (20:38)
[2016-11-23] MEDS: DOCUSATE SODIUM 100 MG CAP PO SCH (20:46)
--- NOTE | 2016-11-23 21:05 | RADRPT ---
PROCEDURE: XR Chest. CLINICAL INDICATION: Central line placement. TECHNIQUE: Chest x-ray, single view. COMPARISON: 11/21/2016 at 1204 hours. FINDINGS: The cardiac silhouette is magnified and unchanged in size. Mild aortic arch calcification is observ ed. Pulmonary vascularity is within normal limits. A right internal jugular central venous cathete r is now in place and terminates within the expected location of the upper SVC. There is no visible pneumothorax. Skeletal structures and upper abdomen are unremarkable. IMPRESSION: No radiographic evidence of acute cardiopulmonary pathology. Satisfactory positioning of right internal jugular central venous catheter. No visible pneumothorax . RPTAT: [facility] .Nehal Tobar MD, MD Date Time Electronically viewed and signed by .Nehal Tobar MD, MD on 11/23/2016 21:05 .T/
[2016-11-23 22:48] LABS: ADD SCAN DIFF NO
[2016-11-23 23:00] LABS: BASOPHILS % 0.1 % (0.0-2.0); HEMATOCRIT 32.9 % (37.0-47.0); HEMOGLOBIN 10.9 g/dl (12.0-16.0); LYMPHOCYTES # 0.6 10^3/ul (0.8-2.9); MEAN CORPUSCULAR HEMOGLOBIN 27.2 pg (29.0-33.0); MEAN CORPUSCULAR HGB CONC 33.1 g/dl (32.0-37.0); MEAN PLATELET VOLUME 9.2 fl (7.4-10.4); MONOCYTE # 0.6 10^3/ul (0.3-0.9); MONOCYTES % 6.1 % (0.0-11.0); NEUTROPHIL # 7.8 10^3/ul (1.6-7.5); NEUTROPHILS % 86.6 % (39.0-77.0); PLATELET COUNT 222 10^3/UL (140-415); RED BLOOD COUNT 4.01 10^6/ul (4.20-5.40); RED CELL DISTRIBUTION WIDTH 14.1 % (11.5-14.5)
[2016-11-23] MEDS ORDERED: ACETAMINOPHEN 325 MG TAB PO PRN (23:30)
[2016-11-23] MEDS: ZOLPIDEM 5 MG TAB PO PRN (23:40)
[2016-11-24] MEDS: HYDROmorphONE 1 MG/ML SYG IV PRN ×5 (00:18→13:15)
[2016-11-24] MEDS ORDERED: HYDROmorphONE 1 MG/ML SYG IV PRN (02:00)
[2016-11-24] MEDS: ACCU-CHEK XX SCH (02:00)
[2016-11-24] MEDS ORDERED: SOD CHLORIDE 0.9% 1,000 ML IV ONE (03:00)
[2016-11-24 05:06] LABS: ADD SCAN DIFF NO
[2016-11-24 05:12] LABS: BASOPHILS % 0.1 % (0.0-2.0); EOSINOPHILS % 0.1 % (0.0-7.0); HEMATOCRIT 29.9 % (37.0-47.0); HEMOGLOBIN 9.8 g/dl (12.0-16.0); LYMPHOCYTES # 0.7 10^3/ul (0.8-2.9); LYMPHOCYTES % 7.9 % (15.0-51.0); MEAN CORPUSCULAR HGB CONC 32.8 g/dl (32.0-37.0); MEAN CORPUSCULAR VOLUME 82.4 fl (82.0-101.0); MEAN PLATELET VOLUME 8.8 fl (7.4-10.4); MONOCYTE # 0.6 10^3/ul (0.3-0.9); MONOCYTES % 6.7 % (0.0-11.0); NEUTROPHIL # 7.1 10^3/ul (1.6-7.5); PLATELET COUNT 185 10^3/UL (140-415); RED BLOOD COUNT 3.63 10^6/ul (4.20-5.40); RED CELL DISTRIBUTION WIDTH 14.1 % (11.5-14.5); WHITE BLOOD COUNT 8.4 10^3/ul (4.8-10.8)
[2016-11-24 05:19] VITALS: BP 110/54; PULSE 103; RESP 16
[2016-11-24 05:28] LABS: CREATININE 0.73 mg/dl (0.44-1.00)
[2016-11-24 05:29] LABS: CALCIUM 7.9 mg/dl (8.4-10.2)
[2016-11-24] MEDS: HYDROCODONE/APAP (10/325) TAB PO PRN (05:48)
[2016-11-24] MEDS: ONDANSETRON 4 MG INJ IV PRN (05:56)
[2016-11-24] MEDS ORDERED: INSULIN ASPART [NOVOLOG] 3 ML PEN SC SCH (07:30)
[2016-11-24 07:50] VITALS: BP 122/58; PULSE 99; RESP 20
[2016-11-24] MEDS: FAMOTIDINE 20 MG INJ IV SCH (08:22)
[2016-11-24] MEDS: SOD CHLORIDE 0.9% 1,000 ML IV SCH (08:23)
[2016-11-24] MEDS: INSULIN ASPART [NOVOLOG] 3 ML PEN SC SCH ×3 (08:24→16:57)
[2016-11-24] MEDS: Insulin NOVOLOG SS MODERATE Algorithm (SS with meals and bedtime) SC SCH ×4 (08:25→20:33)
--- NOTE | 2016-11-24 08:43 | PN ---
DATE: 11/24/2016 CARDIOLOGY FOLLOWUP PROGRESS NOTE SUBJECTIVE: The patient underwent urological surgical procedure yesterday. No cardiac complication . Denies any chest pain or pressure to me. Complains of mild headache, complains of nausea, vomiti ng this morning. Discussed with the staff. MEDICATIONS: Reviewed. PHYSICAL EXAMINATION: VITAL SIGNS: Temperature 99, heart rate of 103, blood pressure 110/54, respiratory rate of 16, satu rating 93 to 96%. GENERAL: Obese female in no acute distress. HEENT: Normocephalic, atraumatic. Pupils are equal. NECK: Supple. Right IJ central line placement. CARDIOVASCULAR: Regular rate and rhythm, systolic murmur. PULMONARY: With no wheezes or rhonchi. GASTROINTESTINAL: Soft, positive tenderness to palpation. EXTREMITIES: Trivial edema. NEUROLOGIC: Awake, responds appropriately. PSYCHIATRIC: Appears to be calm and pleasant. LABORATORY: WBC of 8.4, hemoglobin 9.8, platelets of 185. Sodium 135, potassium 4, BUN of 8, creat inine 0.73, glucose of 165. Chest x-ray on the shows no acute cardiopulmonary disease, status post position of right IJ catheter in place, no pneumothorax. ASSESSMENT AND PLAN: 1. Right renal staghorn calculus. 2. Status post right nephrectomy. 3. Extended-spectrum beta-lactamase urinary tract infection. 4. Hypertension. 5. Diabetes. 6. Anemia ____. RECOMMENDATIONS: We will continue with the current cardiac care. Postop care as per urology. Dictated By: ISAAK WIGGINS MD AV/MIRA Conf#: [id number] DID#: [id number] CC: CHARISMA SERNA MD; Luly;*End*
[2016-11-24] MEDS: BENAZEPRIL 10 MG TAB PO SCH ×2 (09:00→10:29)
[2016-11-24] MEDS: FERROUS SULFATE 60 MG/ML 5ML CUP NGT SCH ×4 (09:00→20:52)
[2016-11-24] MEDS: SERTRALINE 50 MG TAB PO SCH ×2 (09:00→10:29)
[2016-11-24 10:30] VITALS: BP 129/60; PULSE 89; RESP 18
[2016-11-24] MEDS ORDERED: morphine 10 MG INJ IM PRN (14:30)
--- NOTE | 2016-11-24 14:32 | PN ---
DATE: 11/24/2016 SUBJECTIVE: The patient is sleeping. She had been having emesis earlier today. She is in no distr ess. No fevers. LABORATORIES: WBC 8.4, platelets 185, neutrophils 85. BUN 8, creatinine 0.73. ANTIMICROBIALS: Invanz. INDWELLINGS: Right IJ triple-lumen catheter. PHYSICAL EXAMINATION: GENERAL: This is a morbidly obese, middle-aged woman who is in no distress. HEENT: Head atraumatic, normocephalic. Sclerae anicteric. Buccal mucosa dry. NECK: Supple, trachea midline. CHEST: Rise symmetrical. Breath sounds diminished to bases. HEART: S1, S2. ABDOMEN: Obese, soft. Dressings intact. EXTREMITIES: Without cyanosis. ASSESSMENT: 1. Escherichia coli extended-spectrum beta-lactamase urinary tract infection, right chronic pyelone phritis. 1. Nonfunctioning right kidney with renal calculus and midureteral stone status post J stent placement. 2. Status post right radical nephrectomy done yesterday. 3. Morbid obesity. 4. Diabetes. 5. Hypertension. PLAN: The patient remains stable postoperatively. A urine culture from yesterday negative. Contin ue present care. Continue on current antibiotics, follow urology recommendations. Dictated By: CHELITA DAVIES RESEARCH AND DEVELOPMENT CHEMIST for [facility] MACIAS/MIRA Conf#: [id number] DID#: [id number]
--- NOTE | 2016-11-24 14:35 | PN ---
Date/Time of Note Date/Time of Note DATE: 11/24/16 TIME: 14:32 Assessment/Plan VTE Prophylaxis VTE Prophylaxis Intervention: SCD's Lines/Catheters IV Catheter Type (from Nrsg): Peripheral IV Urinary Cath still in place: Yes Reason Cath still needed: other (indicate) Assessment/Plan Assessment/Plan 1. Right infected renal staghorn calculus with atrophy, s/p right nephrectomy on 11/23/2016, stable, follow up with surgery 2. Extended-spectrum beta-lactamase urinary tract infection. on invenz 3. Type 2 diabetes mellitus. Uncontrolled. Hemoglobin A1c 7.7. on insulins 4. Essential hypertension. controlled. 5. Microcytic hypochromic anemia. On iron supplements. Will order an iron panel on this patient. 6. Deep venous thrombosis prophylaxis with bilateral sequential compression devices. Subjective 24 Hr Interval Summary Free Text/Dictation abdominal pain. no flatus Exam/Review of Systems Vital Signs Vitals Vital Signs Date Time Temp Pulse Resp B/P Pulse Ox O2 Delivery O2 Flow Rate FiO2 11/24/16 10:30 89 18 129/60 93 Nasal Cannula 2.0 11/24/16 07:50 98.8 Intake and Output 11/23/16 11/23/16 11/24/16 15:00 23:00 07:00 Intake Total 432 ml 1950 ml 2675 ml Output Total 1850 ml 1550 ml Balance 432 ml 100 ml 1125 ml Exam Constitutional: alert, obese, oriented, well developed Psych: nl mood/affect, no complaints Head: atraumatic, normocephalic Eyes: EOMI, nl conjunctiva, nl lids ENMT: nl external ears & nose, nl lips & teeth, nl nasal mucosa & septum Neck: non-tender, supple Respiratory: clear to auscultation, normal air movement, No congested cough, No crackles/rales, No diminished breath sounds, No intercostal retraction, No labored breathing, No other, No respirations, No tactile fremitus, No wheezing Cardiovascular: nl pulses, regular rate and rhythm, No S3, No S4, No bruits, No diastolic murmur, No edema, No gallop, No irregular rhythm, No jugular venous distention (JVD), No murmurs/extra sounds, No other, No rub, No systolic murmur Gastrointestinal: soft, tender (right side tenderness), No ascites, No bowel sounds, No distended, No firm, No hepatomegaly, No mass , No nl liver, spleen, No other, No rebound or guarding, No splenomegaly Musculoskeletal: nl extremities to inspection Extremities: normal pulses, No calf tenderness, No clubbing, No cyanosis, No edema, No other, No palpable cord, No pitting pedal edema, No tenderness Neurological: SUSTAINABLE DEVELOPMENT POLICY ANALYST II-XII intact, nl mental status, nl speech, nl strength Skin: nl turgor Lymph: nl lymph nodes Results Result Diagram: 11/24/169 11/24/16448 Results 24 hrs Laboratory Tests Test 11/23/16 18:35 11/23/16 20:32 11/23/16 22:36 11/24/16 02:26 Bedside Glucose 180 180 173 White Blood Count 9.0 # Red Blood Count 4.01 L Hemoglobin 10.9 L Hematocrit 32.9 L Mean Corpuscular Volume 82.0 Mean Corpuscular Hemoglobin 27.2 L Mean Corpuscular Hemoglobin Concent 33.1 Red Cell Distribution Width 14.1 Platelet Count 222 Mean Platelet Volume 9.2 Neutrophils % 86.6 H Lymphocytes % 7.0 L Monocytes % 6.1 Eosinophils % 0.0 Basophils % 0.1 Nucleated Red Blood Cells % 0.0 Neutrophils # 7.8 H Lymphocytes # 0.6 L Monocytes # 0.6 Eosinophils # 0.0 Basophils # 0.0 Nucleated Red Blood Cells # 0.0 Test 11/24/16 04:49 11/24/16 08:21 11/24/16 12:14 White Blood Count 8.4 Red Blood Count 3.63 L Hemoglobin 9.8 L Hematocrit 29.9 L Mean Corpuscular Volume 82.4 Mean Corpuscular Hemoglobin 27.0 L Mean Corpuscular Hemoglobin Concent 32.8 Red Cell Distribution Width 14.1 Platelet Count 185 Mean Platelet Volume 8.8 Neutrophils % 85.0 H Lymphocytes % 7.9 L Monocytes % 6.7 Eosinophils % 0.1 Basophils % 0.1 Nucleated Red Blood Cells % 0.0 Neutrophils # 7.1 Lymphocytes # 0.7 L Monocytes # 0.6 Eosinophils # 0.0 Basophils # 0.0 Nucleated Red Blood Cells # 0.0 Sodium Level 135 Potassium Level 4.0 Chloride Level 100 Carbon Dioxide Level 26 Anion Gap 13 Blood Urea Nitrogen 8 Creatinine 0.73 Glucose Level 165 Calcium Level 7.9 L Bedside Glucose 209 171 Medications Medications Current Medications Benazepril HCl (Lotensin) 10 mg DAILY PO Last administered on 11/24/16 10:29; Admin Dose 10 MG; Start 11/18/16 at 09:00 Diphenhydramine HCl (Benadryl) 25 mg Q6H PRN PO ITCHING Last administered on 14:54; Admin Dose 25 MG; Start 11/17/16 at 23:00 Ondansetron HCl (Zofran Inj) 4 mg Q4H PRN IV NAUSEA AND/OR VOMITING Last administered on 11/24/16 05:56; Admin Dose 4 MG; Start 11/17/16 at 23:00 Diagnostic Test (Pha) (Accu-Chek) Check 2 am Accucheck only if... 02 XX ; Start 11/18/16 at 02:00 Acetaminophen/ Hydrocodone Bitart (Butler ()) 1 tab Q4H PRN PO PAIN Last administered on 11/24/16 05:48; Admin Dose 1 TAB; Start 11/17/16 at 23:30 Miscellaneous Information 1 ea NOTE XX ; Start 11/17/16 at 23:30 Glucose (Glutose) 15 gm Q15M PRN PO DECREASED GLUCOSE; Start 11/17/16 at 23:30 Glucose (Glutose) 22.5 gm Q15M PRN PO DECREASED GLUCOSE; Start 11/17/16 at 23: 30 Dextrose (D50w Syringe) 25 ml Q15M PRN IV DECREASED GLUCOSE; Start 11/17/16 at 23:30 Dextrose (D50w Syringe) 50 ml Q15M PRN IV DECREASED GLUCOSE; Start 11/17/16 at 23:30 Glucagon (Glucagen) 1 mg Q15M PRN IM DECREASED GLUCOSE; Start 11/17/16 at 23:30 Glucose (Glutose) 15 gm Q15M PRN BUCCAL DECREASED GLUCOSE; Start 11/17/16 at 23 :30 Famotidine (Pepcid Iv) 20 mg DAILY IV Last administered on 11/24/16 08:22; Admin Dose 20 MG; Start 11/18/16 at 11:30 Docusate Sodium (Colace) 200 mg HS PO Last administered on 11/23/16 20:46; Admin Dose 200 MG; Start 11/18/16 at 21:00 Sertraline HCl (Zoloft) 50 mg DAILY PO Last administered on 11/24/16 10:29; Admin Dose 50 MG; Start 11/19/16 at 09:00 Trazodone HCl (Desyrel) 50 mg HS PRN PO ANXIETY; Start 11/18/16 at 12:30 Ferrous Sulfate 300 mg 300 mg BID NGT Last administered on 11/24/16 10:29; Admin Dose 300 MG; Start 11/20/16 at 09:00 Sodium Chloride (NS) 1,000 ml @ 75 mls/hr [id number] IV Last administered on 11/23 00:01; Admin Dose 75 MLS/HR; Start 11/18/16 at 12:30 Zolpidem Tartrate (Ambien) 10 mg HS PRN PO INSOMNIA Last administered on 23:40; Admin Dose 10 MG; Start 11/18/16 at 22:00 Insulin Glargine 22 unit 22 unit HS SC Last administered on 11/23/16 20:38; Admin Dose 22 UNIT; Start 11/19/16 at 21:00 Ertapenem/Sodium Chloride (Invanz/NS) 100 ml @ 200 mls/hr Q24H IVPB Last administered on 11/22/16 16:55; Admin Dose 200 MLS/HR; Start 11/21/16 at 17:00 Naloxone HCl 0.2 mg 0.2 mg Q2M PRN IV FOR RESP RATE 8 OR LESS; Start 11/23/16 at 12:30 Sodium Chloride (NS) 1,000 ml @ 125 mls/hr Q8H IV Last administered on 08:23; Admin Dose 125 MLS/HR; Start 11/23/16 at 17:14 Acetaminophen (Tylenol Tab) 650 mg Q6H PRN PO PAIN AND OR ELEVATED TEMP Last administered on 11/23/16 23:26; Admin Dose 650 MG; Start 11/23/16 at 23:30 Morphine Sulfate (morphine) 5 mg Q4H PRN IM MODERATE PAIN LEVEL 4-6; Start at 14:30 GEORGETTE PRICE MD November 24, 2016 14:35
--- NOTE | 2016-11-24 14:37 | PN ---
DATE: 11/24/2016 SUBJECTIVE: Aline is status post laparoscopic robotic-assisted nephroureterectomy on postop day #1. The patient has been on clear liquid diet, but has had emesis x2. It is unclear if this occurs after she receives Dilaudid. Preoperatively, she was on morphine 5 mg every 3 to 4 hours for pain control. This was not associated with any emesis. PHYSICAL EXAMINATION: VITAL SIGNS: Blood pressure 129/60, heart rate 89, temperature 98.8. GENERAL: Morbidly obese female in no apparent distress. LUNGS: Good breath sounds bilaterally. HEART: Regular rate and rhythm. ABDOMEN: Soft, nondistended, nontender, positive bowel sounds. No rebound, no guarding. Dressings clean, dry, and intact. GENITOURINARY: Lainez catheter draining clear yellow urine. LABORATORY DATA: Hemoglobin 9.8, white blood count 8.4. Creatinine 0.73. IMPRESSION: Doing well status post nephroureterectomy for infected staghorn calculi and distal uret eral stone with retained stent. PLAN: Discontinue Dilaudid, change back to morphine 5 mg every 4 hours p.r.n.. May require pain co nsultation as it appears she has been on morphine and pain medication for a chronic period of time. We will make n.p.o. at this time as there has been emesis. Should she have resolution of emesis, p lorin for reinitiation of diet in morning time. When tolerating p.o. well, plan for discontinuation o f Lainez catheter. Dictated By: JUDITH DOMINGUEZ/MIRA Conf#: [id number] DID#: [id number]
[2016-11-24] MEDS: DEXTROSE 5%-0.45% NACL 1,000 ML IV SCH ×2 (16:26→23:30)
[2016-11-24] MEDS: ERTAPENEM SODIUM 1 GM in SOD CHLORIDE 0.9% 100 ML IVPB SCH (16:26)
[2016-11-24] MEDS: morphine 10 MG INJ IV PRN ×2 (16:38→20:35)
[2016-11-24] MEDS ORDERED: morphine 10 MG INJ IV PRN (18:30)
[2016-11-24 20:12] VITALS: BP 107/51; RESP 18
[2016-11-24] MEDS: DOCUSATE SODIUM 100 MG CAP PO SCH ×2 (20:32→20:52)
[2016-11-24] MEDS: INSULIN GLARGINE [LANtus] 3 ML PEN SC SCH (20:34)
[2016-11-24 20:37] VITALS: BP 115/56; PULSE 88
[2016-11-25] MEDS ORDERED: HYDROmorphONE 2 MG TAB PO ONE (00:30)
[2016-11-25] MEDS: ACCU-CHEK XX SCH (02:00)
[2016-11-25] MEDS: DEXTROSE 5%-0.45% NACL 1,000 ML IV SCH ×3 (02:01→17:31)
[2016-11-25] MEDS: morphine 10 MG INJ IV PRN ×3 (02:01→12:14)
[2016-11-25] MEDS: ONDANSETRON 4 MG INJ IV PRN (02:26)
[2016-11-25 05:29] LABS: ADD SCAN DIFF NO
[2016-11-25 05:34] LABS: BASOPHILS % 0.1 % (0.0-2.0); EOSINOPHILS # 0.1 10^3/ul (0.0-0.5); EOSINOPHILS % 0.8 % (0.0-7.0); HEMATOCRIT 27.6 % (37.0-47.0); HEMOGLOBIN 8.9 g/dl (12.0-16.0); LYMPHOCYTES # 0.6 10^3/ul (0.8-2.9); LYMPHOCYTES % 8.2 % (15.0-51.0); MEAN CORPUSCULAR HEMOGLOBIN 26.6 pg (29.0-33.0); MEAN CORPUSCULAR HGB CONC 32.2 g/dl (32.0-37.0); MEAN CORPUSCULAR VOLUME 82.6 fl (82.0-101.0); MEAN PLATELET VOLUME 9.1 fl (7.4-10.4); MONOCYTE # 0.4 10^3/ul (0.3-0.9); MONOCYTES % 5.8 % (0.0-11.0); NEUTROPHIL # 6.4 10^3/ul (1.6-7.5); NEUTROPHILS % 84.6 % (39.0-77.0); PLATELET COUNT 192 10^3/UL (140-415); RED BLOOD COUNT 3.34 10^6/ul (4.20-5.40); RED CELL DISTRIBUTION WIDTH 14.3 % (11.5-14.5); WHITE BLOOD COUNT 7.6 10^3/ul (4.8-10.8)
[2016-11-25 05:51] LABS: CALCIUM 8.2 mg/dl (8.4-10.2); CREATININE 0.76 mg/dl (0.44-1.00); POTASSIUM 3.5 mmol/L (3.5-5.1)
[2016-11-25] MEDS: INSULIN ASPART [NOVOLOG] 3 ML PEN SC SCH ×3 (07:35→17:25)
[2016-11-25 08:09] VITALS: BP 98/51; RESP 19
[2016-11-25] MEDS: FAMOTIDINE 20 MG INJ IV SCH (08:09)
[2016-11-25] MEDS: BENAZEPRIL 10 MG TAB PO SCH (08:13)
[2016-11-25] MEDS: FERROUS SULFATE 60 MG/ML 5ML CUP NGT SCH ×2 (08:13→20:55)
[2016-11-25] MEDS: SERTRALINE 50 MG TAB PO SCH (08:13)
[2016-11-25] MEDS: Insulin NOVOLOG SS MODERATE Algorithm (SS with meals and bedtime) SC SCH ×4 (08:17→20:55)
--- NOTE | 2016-11-25 08:39 | CONS ---
DATE OF ADMISSION: 11/17/2016 DATE OF CONSULTATION: HISTORY OF PRESENT ILLNESS: Aline is postop day #2 status post nephroureterectomy yesterday. Th e patient was noted to have emesis after receiving intravenous Dilaudid. Since this time, she has b een changed to morphine. The patient is no longer having any noted emesis. Her vital signs have be en stable. PHYSICAL EXAMINATION: LUNGS: Good breath sounds bilaterally. GENERAL: Morbidly obese female in no apparent distress. ABDOMEN: Soft, nondistended, nontender, positive bowel sounds. Wounds clean, dry, and intact. GENITOURINARY: Lainez catheter draining clear yellow urine. IMPRESSION: Status post nephroureterectomy on postop day #2, doing well. PLAN: Clear liquids, diet then to be advanced as tolerated. Discontinue Lainez catheter. Hope for discharge tomorrow. All questions answered. Dictated By: JUDITH MONSIVAIS MD EGR/NTS Conf#: [id number] DID#: [id number] CC: LYNN SERNA MD;*EndCC*
[2016-11-25] MEDS: HYDROCODONE/APAP (10/325) TAB PO PRN (10:23)
[2016-11-25] MEDS ORDERED: HYDROmorphONE 2 MG TAB PO PRN (14:00)
--- NOTE | 2016-11-25 16:24 | PN ---
Date/Time of Note Date/Time of Note DATE: 11/25/16 TIME: 16:22 Assessment/Plan VTE Prophylaxis VTE Prophylaxis Intervention: SCD's Lines/Catheters IV Catheter Type (from Nrsg): Central Line Central line still needed: Yes Urinary Cath still in place: Yes Reason Cath still needed: other (indicate) Assessment/Plan Assessment/Plan 1. Right infected renal staghorn calculus with atrophy, s/p right nephrectomy on 11/23/2016, stable, start diet tonight 2. Extended-spectrum beta-lactamase urinary tract infection. on invenz 3. Type 2 diabetes mellitus. Uncontrolled. Hemoglobin A1c 7.7. on insulins 4. Essential hypertension. controlled. 5. Microcytic hypochromic anemia. On iron supplements. Will order an iron panel on this patient. 6. Deep venous thrombosis prophylaxis with bilateral sequential compression devices. Subjective 24 Hr Interval Summary Free Text/Dictation passes flatus, no nausea or vomiting Exam/Review of Systems Vital Signs Vitals Vital Signs Date Time Temp Pulse Resp B/P Pulse Ox O2 Delivery O2 Flow Rate FiO2 11/25/16 11:52 Nasal Cannula 2.0 11/25/16 08:09 99.2 90 19 98/51 88 Intake and Output 11/24/16 11/24/16 11/25/16 15:00 23:00 07:00 Intake Total 1650 ml 3975 ml Output Total 300 ml Balance -300 ml 1650 ml 3975 ml Exam Constitutional: alert, oriented, well developed Psych: nl mood/affect, no complaints Head: atraumatic, normocephalic Eyes: EOMI, PERRL, nl conjunctiva, nl lids ENMT: nl external ears & nose, nl lips & teeth, nl nasal mucosa & septum Neck: non-tender, supple Respiratory: clear to auscultation, normal air movement, No congested cough, No crackles/rales, No diminished breath sounds, No intercostal retraction, No labored breathing, No other, No respirations, No tactile fremitus, No wheezing Cardiovascular: nl pulses, regular rate and rhythm Gastrointestinal: bowel sounds, soft Musculoskeletal: nl extremities to inspection Extremities: normal pulses, No calf tenderness, No clubbing, No cyanosis, No edema, No other, No palpable cord, No pitting pedal edema, No tenderness Neurological: PULVERIZER TENDER II-XII intact, nl mental status, nl speech, nl strength Skin: nl turgor Results Result Diagram: 11/25/16 0440 11/25/16 0440 Results 24 hrs Laboratory Tests Test 11/24/16 16:42 11/24/16 20:24 11/24/16 20:26 11/25/16 01:56 Bedside Glucose 122 191 186 171 Test 11/25/16 04:40 11/25/16 07:51 11/25/16 12:14 White Blood Count 7.6 Red Blood Count 3.34 L Hemoglobin 8.9 L Hematocrit 27.6 L Mean Corpuscular Volume 82.6 Mean Corpuscular Hemoglobin 26.6 L Mean Corpuscular Hemoglobin Concent 32.2 Red Cell Distribution Width 14.3 Platelet Count 192 Mean Platelet Volume 9.1 Neutrophils % 84.6 H Lymphocytes % 8.2 L Monocytes % 5.8 Eosinophils % 0.8 Basophils % 0.1 Nucleated Red Blood Cells % 0.0 Neutrophils # 6.4 Lymphocytes # 0.6 L Monocytes # 0.4 Eosinophils # 0.1 Basophils # 0.0 Nucleated Red Blood Cells # 0.0 Sodium Level 136 Potassium Level 3.5 Chloride Level 104 Carbon Dioxide Level 28 Anion Gap 8 Blood Urea Nitrogen 6 L Creatinine 0.76 Glucose Level 196 Calcium Level 8.2 L Bedside Glucose 231 H 155 Medications Medications Current Medications Benazepril HCl (Lotensin) 10 mg DAILY PO Last administered on 11/24/16 10:29; Admin Dose 10 MG; Start 11/18/16 at 09:00 Diphenhydramine HCl (Benadryl) 25 mg Q6H PRN PO ITCHING Last administered on 14:54; Admin Dose 25 MG; Start 11/17/16 at 23:00 Ondansetron HCl (Zofran Inj) 4 mg Q4H PRN IV NAUSEA AND/OR VOMITING Last administered on 11/25/16 02:26; Admin Dose 4 MG; Start 11/17/16 at 23:00 Diagnostic Test (Pha) (Accu-Chek) Check 2 am Accucheck only if... 02 XX ; Start 11/18/16 at 02:00 Miscellaneous Information 1 ea NOTE XX ; Start 11/17/16 at 23:30 Glucose (Glutose) 15 gm Q15M PRN PO DECREASED GLUCOSE; Start 11/17/16 at 23:30 Glucose (Glutose) 22.5 gm Q15M PRN PO DECREASED GLUCOSE; Start 11/17/16 at 23: 30 Dextrose (D50w Syringe) 25 ml Q15M PRN IV DECREASED GLUCOSE; Start 11/17/16 at 23:30 Dextrose (D50w Syringe) 50 ml Q15M PRN IV DECREASED GLUCOSE; Start 11/17/16 at 23:30 Glucagon (Glucagen) 1 mg Q15M PRN IM DECREASED GLUCOSE; Start 11/17/16 at 23:30 Glucose (Glutose) 15 gm Q15M PRN BUCCAL DECREASED GLUCOSE; Start 11/17/16 at 23 :30 Famotidine (Pepcid Iv) 20 mg DAILY IV Last administered on 11/25/16 08:09; Admin Dose 20 MG; Start 11/18/16 at 11:30 Docusate Sodium (Colace) 200 mg HS PO Last administered on 11/23/16 20:46; Admin Dose 200 MG; Start 11/18/16 at 21:00 Sertraline HCl (Zoloft) 50 mg DAILY PO Last administered on 11/25/16 08:13; Admin Dose 50 MG; Start 11/19/16 at 09:00 Trazodone HCl (Desyrel) 50 mg HS PRN PO ANXIETY; Start 11/18/16 at 12:30 Ferrous Sulfate (Feosol Liquid Cup) 300 mg BID NGT Last administered on 08:13; Admin Dose 300 MG; Start 11/20/16 at 09:00 Zolpidem Tartrate (Ambien) 10 mg HS PRN PO INSOMNIA Last administered on 23:40; Admin Dose 10 MG; Start 11/18/16 at 22:00 Insulin Glargine 22 unit 22 unit HS SC Last administered on 11/24/16 20:34; Admin Dose 22 UNIT; Start 11/19/16 at 21:00 Ertapenem/Sodium Chloride (Invanz/NS) 100 ml @ 200 mls/hr Q24H IVPB Last administered on 11/24/16 16:26; Admin Dose 200 MLS/HR; Start 11/21/16 at 17:00 Naloxone HCl (Narcan) 0.2 mg Q2M PRN IV FOR RESP RATE 8 OR LESS; Start at 12:30 Acetaminophen 650 mg 650 mg Q6H PRN PO PAIN AND OR ELEVATED TEMP Last administered on 11/23/16 23:26; Admin Dose 650 MG; Start 11/23/16 at 23:30 Dextrose/Sodium Chloride (D5-1/2ns) 1,000 ml @ 125 mls/hr Q8H IV Last administered on 11/25/16 10:23; Admin Dose 125 MLS/HR; Start 11/24/16 at 15:30 Hydromorphone HCl (Dilaudid) 2 mg Q4H PRN PO PAIN LEVEL 1-5; Start 11/25/16 at 14:00 Hydromorphone HCl (Dilaudid) 4 mg Q4H PRN PO PAIN LEVEL 6-10; Start 11/25/16 at 14:00 GEORGETTE PRIEC MD November 25, 2016 16:24
[2016-11-25] MEDS: ERTAPENEM SODIUM 1 GM in SOD CHLORIDE 0.9% 100 ML IVPB SCH (17:23)
[2016-11-25] MEDS: HYDROmorphONE 2 MG TAB PO PRN ×2 (17:30→21:46)
--- NOTE | 2016-11-25 18:44 | CONS ---
Date/Time of Note Date/Time of Note DATE: 11/25/16 TIME: 18:43 Assessment/Plan Assessment/Plan Chief Complaint/Hosp Course SUBJECTIVE: Awake, c/o pain. She is in no distress. No fevers. ANTIMICROBIALS: Invanz. INDWELLINGS: Right IJ triple-lumen catheter. PHYSICAL EXAMINATION: GENERAL: This is a morbidly obese, middle-aged woman who is in no distress. HEENT: Head atraumatic, normocephalic. Sclerae anicteric. Buccal mucosa dry. NECK: Supple, trachea midline. CHEST: Rise symmetrical. Breath sounds diminished to bases. HEART: S1, S2. ABDOMEN: Obese, soft. Dressings intact. EXTREMITIES: Without cyanosis. ASSESSMENT: 1. Escherichia coli extended-spectrum beta-lactamase urinary tract infection, right chronic pyelonephritis. 1. Nonfunctioning right kidney with renal calculus and midureteral stone status post J stent placement. 2. Status post right radical nephrectomy done 11/23/16. 3. Morbid obesity. 4. Diabetes. 5. Hypertension. PLAN: The patient remains stable, repeat culture negative. Continue present care. Continue on current antibiotics for 10 more days, follow urology recommendations. Problems: Consultation Date/Type/Reason Admit Date/Time November 17, 2016 at 19:05 Type of Consultation: ID Exam/Review of Systems Vital Signs Vitals Vital Signs Date Time Temp Pulse Resp B/P Pulse Ox O2 Delivery O2 Flow Rate FiO2 11/25/16 11:52 Nasal Cannula 2.0 11/25/16 08:09 99.2 90 19 98/51 88 Intake and Output 11/24/16 11/24/16 11/25/16 15:00 23:00 07:00 Intake Total 1650 ml 3975 ml Output Total 300 ml Balance -300 ml 1650 ml 3975 ml Results Result Diagram: 11/25/16 0440 11/25/16 0440 Results 24 hrs Laboratory Tests Test 11/24/16 20:24 11/24/16 20:26 11/25/16 01:56 11/25/16 04:40 Bedside Glucose 191 186 171 White Blood Count 7.6 Red Blood Count 3.34 L Hemoglobin 8.9 L Hematocrit 27.6 L Mean Corpuscular Volume 82.6 Mean Corpuscular Hemoglobin 26.6 L Mean Corpuscular Hemoglobin Concent 32.2 Red Cell Distribution Width 14.3 Platelet Count 192 Mean Platelet Volume 9.1 Neutrophils % 84.6 H Lymphocytes % 8.2 L Monocytes % 5.8 Eosinophils % 0.8 Basophils % 0.1 Nucleated Red Blood Cells % 0.0 Neutrophils # 6.4 Lymphocytes # 0.6 L Monocytes # 0.4 Eosinophils # 0.1 Basophils # 0.0 Nucleated Red Blood Cells # 0.0 Sodium Level 136 Potassium Level 3.5 Chloride Level 104 Carbon Dioxide Level 28 Anion Gap 8 Blood Urea Nitrogen 6 L Creatinine 0.76 Glucose Level 196 Calcium Level 8.2 L Test 11/25/16 07:51 11/25/16 12:14 11/25/16 17:23 Bedside Glucose 231 H 155 113 Medications Medications Current Medications Benazepril HCl (Lotensin) 10 mg DAILY PO Last administered on 11/24/16 10:29; Admin Dose 10 MG; Start 11/18/16 at 09:00 Diphenhydramine HCl (Benadryl) 25 mg Q6H PRN PO ITCHING Last administered on 14:54; Admin Dose 25 MG; Start 11/17/16 at 23:00 Ondansetron HCl (Zofran Inj) 4 mg Q4H PRN IV NAUSEA AND/OR VOMITING Last administered on 11/25/16 02:26; Admin Dose 4 MG; Start 11/17/16 at 23:00 Diagnostic Test (Pha) (Accu-Chek) Check 2 am Accucheck only if... 02 XX ; Start 11/18/16 at 02:00 Miscellaneous Information 1 ea NOTE XX ; Start 11/17/16 at 23:30 Glucose (Glutose) 15 gm Q15M PRN PO DECREASED GLUCOSE; Start 11/17/16 at 23:30 Glucose (Glutose) 22.5 gm Q15M PRN PO DECREASED GLUCOSE; Start 11/17/16 at 23: 30 Dextrose (D50w Syringe) 25 ml Q15M PRN IV DECREASED GLUCOSE; Start 11/17/16 at 23:30 Dextrose (D50w Syringe) 50 ml Q15M PRN IV DECREASED GLUCOSE; Start 11/17/16 at 23:30 Glucagon (Glucagen) 1 mg Q15M PRN IM DECREASED GLUCOSE; Start 11/17/16 at 23:30 Glucose (Glutose) 15 gm Q15M PRN BUCCAL DECREASED GLUCOSE; Start 11/17/16 at 23 :30 Famotidine (Pepcid Iv) 20 mg DAILY IV Last administered on 11/25/16 08:09; Admin Dose 20 MG; Start 11/18/16 at 11:30 Docusate Sodium (Colace) 200 mg HS PO Last administered on 11/23/16 20:46; Admin Dose 200 MG; Start 11/18/16 at 21:00 Sertraline HCl (Zoloft) 50 mg DAILY PO Last administered on 11/25/16 08:13; Admin Dose 50 MG; Start 11/19/16 at 09:00 Trazodone HCl (Desyrel) 50 mg HS PRN PO ANXIETY; Start 11/18/16 at 12:30 Ferrous Sulfate (Feosol Liquid Cup) 300 mg BID NGT Last administered on 08:13; Admin Dose 300 MG; Start 11/20/16 at 09:00 Zolpidem Tartrate (Ambien) 10 mg HS PRN PO INSOMNIA Last administered on 23:40; Admin Dose 10 MG; Start 11/18/16 at 22:00 Insulin Glargine 22 unit 22 unit HS SC Last administered on 11/24/16 20:34; Admin Dose 22 UNIT; Start 11/19/16 at 21:00 Ertapenem/Sodium Chloride (Invanz/NS) 100 ml @ 200 mls/hr Q24H IVPB Last administered on 11/25/16 17:23; Admin Dose 200 MLS/HR; Start 11/21/16 at 17:00 Naloxone HCl (Narcan) 0.2 mg Q2M PRN IV FOR RESP RATE 8 OR LESS; Start at 12:30 Acetaminophen 650 mg 650 mg Q6H PRN PO PAIN AND OR ELEVATED TEMP Last administered on 11/23/16 23:26; Admin Dose 650 MG; Start 11/23/16 at 23:30 Dextrose/Sodium Chloride (D5-1/2ns) 1,000 ml @ 125 mls/hr Q8H IV Last administered on 11/25/16 17:31; Admin Dose 125 MLS/HR; Start 11/24/16 at 15:30 Hydromorphone HCl (Dilaudid) 2 mg Q4H PRN PO PAIN LEVEL 1-5; Start 11/25/16 at 14:00 Hydromorphone HCl (Dilaudid) 4 mg Q4H PRN PO PAIN LEVEL 6-10 Last administered on 11/25/16t 17:30; Admin Dose 4 MG; Start 11/25/16 at 14:00 CHELITA DAVIES NP November 25, 2016 18:44
[2016-11-25] MEDS: INSULIN GLARGINE [LANtus] 3 ML PEN SC SCH (20:53)
[2016-11-25] MEDS: DOCUSATE SODIUM 100 MG CAP PO SCH (20:55)
[2016-11-25 21:54] VITALS: BP 123/60; RESP 19
[2016-11-25] MEDS: ZOLPIDEM 5 MG TAB PO PRN (23:49)
[2016-11-26] MEDS: ACCU-CHEK XX SCH (02:00)
[2016-11-26] MEDS: DEXTROSE 5%-0.45% NACL 1,000 ML IV SCH (02:59)
[2016-11-26 07:30] VITALS: BP 126/60; RESP 19
[2016-11-26] MEDS: FERROUS SULFATE 60 MG/ML 5ML CUP NGT SCH ×2 (08:03→20:16)
[2016-11-26] MEDS: SERTRALINE 50 MG TAB PO SCH (08:03)
[2016-11-26] MEDS: BENAZEPRIL 10 MG TAB PO SCH (08:03)
[2016-11-26] MEDS: FAMOTIDINE 20 MG INJ IV SCH (08:03)
[2016-11-26] MEDS: Insulin NOVOLOG SS MODERATE Algorithm (SS with meals and bedtime) SC SCH ×4 (08:10→20:23)
[2016-11-26] MEDS: INSULIN ASPART [NOVOLOG] 3 ML PEN SC SCH ×2 (08:10→12:08)
--- NOTE | 2016-11-26 09:24 | PN ---
DATE: 11/26/2016 CARDIOLOGY FOLLOWUP SUBJECTIVE: Discussed with the staff. The patient with no chest pain or pressure. No palpitation. Still complains of abdominal pain, is able to tolerate food, apparently better now. MEDICATIONS: Reviewed. PHYSICAL EXAMINATION: VITAL SIGNS: Temperature 98.5, heart rate of 89, blood pressure ___/60, respirations 19, saturating 91%. HEENT: Normocephalic, atraumatic. Obese female. Pupils are equal. CARDIOVASCULAR: Regular rate and rhythm, systolic murmur. PULMONARY: With no wheezes. GASTROINTESTINAL: Obese, soft, positive tenderness to palpation. EXTREMITIES: With trivial edema. NEUROLOGIC: Awake, responds appropriately. PSYCHIATRIC: Appears to be calm. GENERAL: Obese female in no acute distress. LABORATORY: Glucose this morning is 184. ASSESSMENT AND PLAN: 1. Status post right nephrectomy. 2. Renal staghorn calculus with extended-spectrum beta-lactamase urinary tract infection. 3. Hypertension. 4. Diabetes. 5. Morbid obesity. 6. Anemia. RECOMMENDATIONS: Will continue postop care with the current cardiac care. The patient with no blessing nal symptoms and no cardiac complication. Dictated By: ISAAK BRICE/MIRA Conf#: [id number] DID#: [id number]
[2016-11-26] MEDS: HYDROmorphONE 2 MG TAB PO PRN ×2 (10:45→17:18)
[2016-11-26 13:25] LABS: HEMATOCRIT 28.5 % (37.0-47.0); HEMOGLOBIN 9.1 g/dl (12.0-16.0)
--- NOTE | 2016-11-26 14:05 | PDOCDIS ---
Discharge Instructions DIAGNOSIS Discharge Diagnosis: Right renal staghorn calculus status post right nephrectomy CONDITION Patient Condition: Fair HOME CARE INSTRUCTIONS: Special Diet: 1800 ada,carb controlled ACTIVITY: Activity Restrictions: Slowly Increase Activity Do not operate Machinery Do not operate Power Tool FOLLOW UP/APPOINTMENTS Appointments Follow-up with urology in the next 10 days. Home health for IV antibiotics until December 01. At that time home health remove central venous catheter LISA SALEH MD November 26, 2016 14:05
[2016-11-26] MEDS ORDERED: LIRA0.6P2 SQ (14:11)
[2016-11-26] MEDS ORDERED: SERT50TA6 PO (14:11)
[2016-11-26] MEDS ORDERED: BENA10TA48 PO (14:11)
[2016-11-26] MEDS ORDERED: TRAZ50TA18 PO (14:11)
[2016-11-26] MEDS ORDERED: METF1000 PO (14:11)
[2016-11-26] MEDS ORDERED: UDFER NGT (14:11)
--- NOTE | 2016-11-26 14:19 | PN ---
Date/Time of Note Date/Time of Note DATE: 11/26/16 TIME: 14:14 Assessment/Plan VTE Prophylaxis VTE Prophylaxis Intervention: SCD's Lines/Catheters IV Catheter Type (from [facility]): Central Line Central line still needed: Yes Urinary Cath still in place: No Assessment/Plan Problems: (1) Chronic kidney disease, stage II (mild) Status: Chronic Comment: Please note that she actually is more of a stage I kidney disease and is okay to take metformin. She has had a nephrectomy cell shot to be observed over time. Use of the LIBAN inhibitor in this diabetic is a good idea. (2) Status post nephrectomy Status: Acute Comment: She is recuperating from surgery without any complications. Urology is already's written her prescriptions and is from stable for her to be discharged from their perspective (3) Obesity (BMI 30-39.9) Status: Chronic Comment: Calorie restriction diet (4) Diabetes mellitus type 2 in obese Status: Chronic Comment: Her home medications were not documented in the chart and the wear. She has been on metformin and Victoza at home. I will continue her on those at discharge plus since her sugars were perfectly controlled mealtime Prandin at 0.5 mg. (5) Iron deficiency anemia Status: Chronic Comment: 1 dose of IV Ferrlecit and then oral iron for 6 weeks Qualifiers: Iron deficiency anemia type: unspecified iron deficiency Qualified Code: D50.9 - Iron deficiency anemia, unspecified iron deficiency anemia type (6) Urinary tract infection due to ESBL Klebsiella Status: Acute Comment: She will need to go home on Invanz until the . Home health will be arranged (7) Moderate late onset dysthymic disorder, in partial remission, with anxious distress, with intermittent major depressive episodes, with current episode Status: Chronic Comment: Resume SSRI therapy Assessment/Plan In addition she will resume her statin therapy Subjective 24 Hr Interval Summary Free Text/Dictation Patient reports that she is feeling well and is anxious to go home. Please note she still has a central line Constitutional: no complaints Respiratory: no complaints Cardiovascular: no complaints Gastrointestinal: no complaints Genitourinary: no complaints Exam/Review of Systems Vital Signs Vitals Vital Signs Date Time Temp Pulse Resp B/P Pulse Ox O2 Delivery O2 Flow Rate FiO2 11/26/16 07:30 98.5 89 19 126/60 91 11/25/16 21:00 Nasal Cannula 2.0 Intake and Output 11/25/16 11/25/16 11/26/16 15:00 23:00 07:00 Intake Total 625 ml 2140 ml 2030 ml Output Total 900 ml Balance 625 ml 1240 ml 2030 ml Exam Constitutional: alert, oriented Neck: non-tender, supple Respiratory: clear to auscultation, normal air movement Cardiovascular: nl pulses, regular rate and rhythm Gastrointestinal: nl liver, spleen, non-tender, soft Results Result Diagram: 11/26/16 1310 11/25/16 0440 Results 24 hrs Laboratory Tests Test 11/25/16 17:23 11/25/16 20:49 11/26/16 08:01 11/26/16 12:04 Bedside Glucose 113 178 184 124 Test 11/26/16 13:10 Hemoglobin 9.1 L Hematocrit 28.5 L Medications Medications Current Medications Benazepril HCl (Lotensin) 10 mg DAILY PO Last administered on 11/26/16 08:03; Admin Dose 10 MG; Start 11/18/16 at 09:00 Diphenhydramine HCl (Benadryl) 25 mg Q6H PRN PO ITCHING Last administered on 14:54; Admin Dose 25 MG; Start 11/17/16 at 23:00 Ondansetron HCl (Zofran Inj) 4 mg Q4H PRN IV NAUSEA AND/OR VOMITING Last administered on 11/25/16 02:26; Admin Dose 4 MG; Start 11/17/16 at 23:00 Diagnostic Test (Pha) (Accu-Chek) Check 2 am Accucheck only if... 02 XX ; Start 11/18/16 at 02:00 Miscellaneous Information 1 ea NOTE XX ; Start 11/17/16 at 23:30 Glucose (Glutose) 15 gm Q15M PRN PO DECREASED GLUCOSE; Start 11/17/16 at 23:30 Glucose (Glutose) 22.5 gm Q15M PRN PO DECREASED GLUCOSE; Start 11/17/16 at 23: 30 Dextrose (D50w Syringe) 25 ml Q15M PRN IV DECREASED GLUCOSE; Start 11/17/16 at 23:30 Dextrose (D50w Syringe) 50 ml Q15M PRN IV DECREASED GLUCOSE; Start 11/17/16 at 23:30 Glucagon (Glucagen) 1 mg Q15M PRN IM DECREASED GLUCOSE; Start 11/17/16 at 23:30 Glucose (Glutose) 15 gm Q15M PRN BUCCAL DECREASED GLUCOSE; Start 11/17/16 at 23 :30 Famotidine (Pepcid Iv) 20 mg DAILY IV Last administered on 11/26/16 08:03; Admin Dose 20 MG; Start 11/18/16 at 11:30 Docusate Sodium (Colace) 200 mg HS PO Last administered on 11/25/16 20:55; Admin Dose 200 MG; Start 11/18/16 at 21:00 Sertraline HCl (Zoloft) 50 mg DAILY PO Last administered on 11/26/16 08:03; Admin Dose 50 MG; Start 11/19/16 at 09:00 Trazodone HCl (Desyrel) 50 mg HS PRN PO ANXIETY; Start 11/18/16 at 12:30 Ferrous Sulfate (Feosol Liquid Cup) 300 mg BID NGT Last administered on 08:03; Admin Dose 300 MG; Start 11/20/16 at 09:00 Zolpidem Tartrate (Ambien) 10 mg HS PRN PO INSOMNIA Last administered on 23:49; Admin Dose 10 MG; Start 11/18/16 at 22:00 Insulin Glargine 22 unit 22 unit HS SC Last administered on 11/25/16 20:53; Admin Dose 22 UNIT; Start 11/19/16 at 21:00 Ertapenem/Sodium Chloride (Invanz/NS) 100 ml @ 200 mls/hr Q24H IVPB Last administered on 11/25/16 17:23; Admin Dose 200 MLS/HR; Start 11/21/16 at 17:00 ; Stop 12/01/16 at 16:59 Naloxone HCl (Narcan) 0.2 mg Q2M PRN IV FOR RESP RATE 8 OR LESS; Start at 12:30 Acetaminophen (Tylenol Tab) 650 mg Q6H PRN PO PAIN AND OR ELEVATED TEMP Last administered on 11/23/16 23:26; Admin Dose 650 MG; Start 11/23/16 at 23:30 Hydromorphone HCl (Dilaudid) 2 mg Q4H PRN PO PAIN LEVEL 1-5; Start 11/25/16 at 14:00 Hydromorphone HCl (Dilaudid) 4 mg Q4H PRN PO PAIN LEVEL 6-10 Last administered on 11/26/16 10:45; Admin Dose 4 MG; Start 11/25/16 at 14:00 Simethicone 80 mg 80 mg Q6H PRN PO DISTENSION/GAS/BLOATING Last administered on 11/25/16 23:49; Admin Dose 80 MG; Start 11/26/16 at 00:00 Ferric Sodium Gluconate Complex/ Sodium Chloride (Ferrlecit/NS) 110 ml @ 100 mls/hr ONCE ONCE IVPB ; Start 11/26/16 at 15:00; Stop 11/26/16 at 16:05 LISA SALEH MD November 26, 2016 14:19
[2016-11-26] MEDS ORDERED: REPA1TAB14 PO (14:20)
[2016-11-26] MEDS ORDERED: ATOR40TA68 PO (14:20)
[2016-11-26] MEDS ORDERED: SOD FERRIC GLUC COMPLX 125 MG in SOD CHLORIDE 0.9% 100 ML IVPB ONE (15:00)
[2016-11-26] MEDS: ERTAPENEM SODIUM 1 GM in SOD CHLORIDE 0.9% 100 ML IVPB SCH (17:17)
[2016-11-26] MEDS: REPAGLINIDE 1 MG TAB PO SCH (17:18)
[2016-11-26] MEDS: metFORMIN 500 MG TAB PO SCH (17:36)
[2016-11-26] MEDS: DOCUSATE SODIUM 100 MG CAP PO SCH (20:16)
[2016-11-26] MEDS: ATORVASTATIN 40 MG TAB PO SCH (20:16)
[2016-11-26] MEDS: HYDROmorphONE 1 MG/ML SYG IV PRN (20:25)
[2016-11-26 20:37] VITALS: BP 133/64; RESP 20
--- NOTE | 2016-11-26 20:39 | CONS ---
Date/Time of Note Date/Time of Note DATE: 11/26/16 TIME: 20:35 Assessment/Plan Assessment/Plan Chief Complaint/Hosp Course ID PROGRESS NOTE ABX DAY ## => Invanz 24H INTERVAL SUMMARY * A/A/O, feels better, no fevers, stable, resting comfortably, family members present * R-IJ TLC intake, using incentive spirometer PHYSICAL EXAMINATION: GENERAL: VSS, NAD, morbid-obese HEENT: Unremarkable NECK: Increased neck circumference w/right IJ TLC CHEST: Equal chest rise bilaterally, without dyspnea on observation HEART: Pulse RRR ABDOMEN: Soft EXTREMITIES: Warm SKIN: Warm, dry ID ASSESSMENT: 51 yo F w/ admitted with: 1. Escherichia coli extended-spectrum beta-lactamase urinary tract infection, right chronic pyelonephritis. 1. Nonfunctioning right kidney with renal calculus and midureteral stone status post J stent placement. 2. Status post right radical nephrectomy done 11/23/16. 3. Morbid obesity. 4. Diabetes. 5. Hypertension. ABX ALLERGIES: NKDA CURRENT ABX: #Invanz ID RECOMMENDATIONS: 1. Continue INVANZ course 11/21/16 - 12/01/16 2. [place] planning on ABX in process . Problems: Consultation Date/Type/Reason Admit Date/Time November 17, 2016 at 19:05 Initial Consult Date Type of Consultation: ID Exam/Review of Systems Vital Signs Vitals Vital Signs Date Time Temp Pulse Resp B/P Pulse Ox O2 Delivery O2 Flow Rate FiO2 11/26/16 07:30 98.5 89 19 126/60 91 11/25/16 21:00 Nasal Cannula 2.0 Intake and Output 11/25/16 11/25/16 11/26/16 15:00 23:00 07:00 Intake Total 625 ml 2140 ml 2030 ml Output Total 900 ml Balance 625 ml 1240 ml 2030 ml Results Result Diagram: 11/26/16 1310 11/25/16 0440 Results 24 hrs Laboratory Tests Test 11/25/16 20:49 11/26/16 08:01 11/26/16 12:04 11/26/16 13:10 Bedside Glucose 178 184 124 Hemoglobin 9.1 L Hematocrit 28.5 L Test 11/26/16 17:34 11/26/16 20:22 Bedside Glucose 118 144 Medications Medications Current Medications Benazepril HCl (Lotensin) 10 mg DAILY PO Last administered on 11/26/16 08:03; Admin Dose 10 MG; Start 11/18/16 at 09:00 Diphenhydramine HCl (Benadryl) 25 mg Q6H PRN PO ITCHING Last administered on 14:54; Admin Dose 25 MG; Start 11/17/16 at 23:00 Ondansetron HCl (Zofran Inj) 4 mg Q4H PRN IV NAUSEA AND/OR VOMITING Last administered on 11/25/16 02:26; Admin Dose 4 MG; Start 11/17/16 at 23:00 Diagnostic Test (Pha) (Accu-Chek) Check 2 am Accucheck only if... 02 XX ; Start 11/18/16 at 02:00 Miscellaneous Information 1 ea NOTE XX ; Start 11/17/16 at 23:30 Glucose (Glutose) 15 gm Q15M PRN PO DECREASED GLUCOSE; Start 11/17/16 at 23:30 Glucose (Glutose) 22.5 gm Q15M PRN PO DECREASED GLUCOSE; Start 11/17/16 at 23: 30 Dextrose (D50w Syringe) 25 ml Q15M PRN IV DECREASED GLUCOSE; Start 11/17/16 at 23:30 Dextrose (D50w Syringe) 50 ml Q15M PRN IV DECREASED GLUCOSE; Start 11/17/16 at 23:30 Glucagon (Glucagen) 1 mg Q15M PRN IM DECREASED GLUCOSE; Start 11/17/16 at 23:30 Glucose (Glutose) 15 gm Q15M PRN BUCCAL DECREASED GLUCOSE; Start 11/17/16 at 23 :30 Famotidine (Pepcid Iv) 20 mg DAILY IV Last administered on 11/26/16 08:03; Admin Dose 20 MG; Start 11/18/16 at 11:30 Docusate Sodium (Colace) 200 mg HS PO Last administered on 11/26/16 20:16; Admin Dose 200 MG; Start 11/18/16 at 21:00 Sertraline HCl (Zoloft) 50 mg DAILY PO Last administered on 11/26/16 08:03; Admin Dose 50 MG; Start 11/19/16 at 09:00 Trazodone HCl (Desyrel) 50 mg HS PRN PO ANXIETY; Start 11/18/16 at 12:30 Ferrous Sulfate (Feosol Liquid Cup) 300 mg BID NGT Last administered on 20:16; Admin Dose 300 MG; Start 11/20/16 at 09:00 Zolpidem Tartrate 10 mg 10 mg HS PRN PO INSOMNIA Last administered on 23:49; Admin Dose 10 MG; Start 11/18/16 at 22:00 Ertapenem/Sodium Chloride (Invanz/NS) 100 ml @ 200 mls/hr Q24H IVPB Last administered on 11/26/16 17:17; Admin Dose 200 MLS/HR; Start 11/21/16 at 17:00 ; Stop 12/01/16 at 16:59 Naloxone HCl (Narcan) 0.2 mg Q2M PRN IV FOR RESP RATE 8 OR LESS; Start at 12:30 Acetaminophen (Tylenol Tab) 650 mg Q6H PRN PO PAIN AND OR ELEVATED TEMP Last administered on 11/23/16 23:26; Admin Dose 650 MG; Start 11/23/16 at 23:30 Simethicone (Mylicon) 80 mg Q6H PRN PO DISTENSION/GAS/BLOATING Last administered on 11/25/16 23:49; Admin Dose 80 MG; Start 11/26/16 at 00:00 Atorvastatin Calcium (Lipitor) 40 mg HS PO Last administered on 11/26/16 20:16 ; Admin Dose 40 MG; Start 11/26/16 at 21:00 Tramadol HCl (Ultram) 50 mg Q6H PRN PO PAIN AND/OR INFLAMMATION; Start at 19:00 Hydromorphone HCl (Dilaudid) 0.5 mg Q4H PRN IV PAIN Last administered on 20:25; Admin Dose 0.5 MG; Start 11/26/16 at 19:00 EVELINE GONSALES NP November 26, 2016 20:39
[2016-11-26] MEDS: ZOLPIDEM 5 MG TAB PO PRN (22:21)
[2016-11-26] MEDS: ONDANSETRON 4 MG INJ IV PRN (23:58)
[2016-11-27] MEDS: HYDROmorphONE 1 MG/ML SYG IV PRN ×7 (00:35→21:36)
[2016-11-27] MEDS: ACCU-CHEK XX SCH (02:00)
[2016-11-27 07:20] VITALS: BP 127/67; RESP 16
[2016-11-27] MEDS: Insulin NOVOLOG SS MODERATE Algorithm (SS with meals and bedtime) SC SCH ×4 (08:00→21:00)
[2016-11-27] MEDS: metFORMIN 500 MG TAB PO SCH (08:02)
[2016-11-27] MEDS: FERROUS SULFATE 60 MG/ML 5ML CUP NGT SCH ×2 (08:02→21:28)
[2016-11-27] MEDS: REPAGLINIDE 1 MG TAB PO SCH ×3 (08:02→17:14)
[2016-11-27] MEDS: SERTRALINE 50 MG TAB PO SCH (08:02)
[2016-11-27] MEDS: BENAZEPRIL 10 MG TAB PO SCH (08:02)
[2016-11-27] MEDS: FAMOTIDINE 20 MG INJ IV SCH (08:02)
[2016-11-27] MEDS ORDERED: SOD FERRIC GLUC COMPLX 125 MG in SOD CHLORIDE 0.9% 100 ML IVPB ONE (09:00)
--- NOTE | 2016-11-27 09:08 | PN ---
Date/Time of Note Date/Time of Note DATE: 11/27/16 TIME: 09:05 Assessment/Plan VTE Prophylaxis VTE Prophylaxis Intervention: heparin Lines/Catheters [facility] Central Line Central line still needed: Yes Urinary Cath still in place: No Assessment/Plan Problems: (1) Chronic kidney disease, stage II (mild) Status: Chronic Comment: This is stable and holding. Follow-up as outpatient. (2) Status post nephrectomy Status: Acute Comment: She had nephrectomy due to staghorn calculus and a nonfunctional kidney. She is recuperating from the procedure well. She is having some degree of diarrhea which is being worked up. (3) Obesity (BMI 30-39.9) Status: Chronic Comment: Calorie restriction diet. (4) Diabetes mellitus type 2 in obese Status: Chronic Comment: Off of insulin using oral agents she has very good control without hypoglycemia. (5) Iron deficiency anemia Status: Chronic Comment: Give 1 more dose of IV iron Qualifiers: Iron deficiency anemia type: unspecified iron deficiency Qualified Code: D50.9 - Iron deficiency anemia, unspecified iron deficiency anemia type (6) Urinary tract infection due to ESBL Klebsiella Status: Acute Comment: Continue antibiotics. Patient is being held in the hospital due to the logistical issues getting her set up for home IV antibiotic therapy and the cooperation from her IPA (7) Moderate late onset dysthymic disorder, in partial remission, with anxious distress, with intermittent major depressive episodes, with current episode Status: Chronic Comment: Continue on treatment. Subjective 24 Hr Interval Summary Free Text/Dictation Patient reports the onset of diarrhea after dinner last night. Please note she states that she did not have this when using metformin as an outpatient. She does report she saw small amount of redness in the diarrhea. Please see RN notes Constitutional: no complaints Respiratory: no complaints, other (Denies snoring at home although she reports her snores) Cardiovascular: no complaints Gastrointestinal: diarrhea Genitourinary: no complaints Exam/Review of Systems Vital Signs Vitals Vital Signs Date Time Temp Pulse Resp B/P Pulse Ox O2 Delivery O2 Flow Rate FiO2 11/27/16 07:20 98.8 88 16 127/67 91 11/25/16 21:00 Nasal Cannula 2.0 Intake and Output 11/26/16 11/26/16 11/27/16 15:00 23:00 07:00 Intake Total 875 ml 810 ml 600 ml Balance 875 ml 810 ml 600 ml Exam Constitutional: alert, oriented Neck: non-tender, supple Respiratory: clear to auscultation, normal air movement Cardiovascular: nl pulses, regular rate and rhythm Gastrointestinal: nl liver, spleen, non-tender, soft Results Result Diagram: 11/26/16 1310 11/25/16 0440 Results 24 hrs Laboratory Tests Test 11/26/16 12:04 11/26/16 13:10 11/26/16 17:34 11/26/16 20:22 Bedside Glucose 124 118 144 Hemoglobin 9.1 L Hematocrit 28.5 L Test 11/27/16 08:00 Bedside Glucose 130 Medications Medications Current Medications Benazepril HCl (Lotensin) 10 mg DAILY PO Last administered on 11/27/16 08:02; Admin Dose 10 MG; Start 11/18/16 at 09:00 Diphenhydramine HCl (Benadryl) 25 mg Q6H PRN PO ITCHING Last administered on 14:54; Admin Dose 25 MG; Start 11/17/16 at 23:00 Ondansetron HCl (Zofran Inj) 4 mg Q4H PRN IV NAUSEA AND/OR VOMITING Last administered on 11/26/16 23:58; Admin Dose 4 MG; Start 11/17/16 at 23:00 Diagnostic Test (Pha) (Accu-Chek) Check 2 am Accucheck only if... 02 XX ; Start 11/18/16 at 02:00 Miscellaneous Information 1 ea NOTE XX ; Start 11/17/16 at 23:30 Glucose (Glutose) 15 gm Q15M PRN PO DECREASED GLUCOSE; Start 11/17/16 at 23:30 Glucose (Glutose) 22.5 gm Q15M PRN PO DECREASED GLUCOSE; Start 11/17/16 at 23: 30 Dextrose (D50w Syringe) 25 ml Q15M PRN IV DECREASED GLUCOSE; Start 11/17/16 at 23:30 Dextrose (D50w Syringe) 50 ml Q15M PRN IV DECREASED GLUCOSE; Start 11/17/16 at 23:30 Glucagon (Glucagen) 1 mg Q15M PRN IM DECREASED GLUCOSE; Start 11/17/16 at 23:30 Glucose (Glutose) 15 gm Q15M PRN BUCCAL DECREASED GLUCOSE; Start 11/17/16 at 23 :30 Famotidine (Pepcid Iv) 20 mg DAILY IV Last administered on 11/27/16 08:02; Admin Dose 20 MG; Start 11/18/16 at 11:30 Docusate Sodium (Colace) 200 mg HS PO Last administered on 11/26/16 20:16; Admin Dose 200 MG; Start 11/18/16 at 21:00 Sertraline HCl (Zoloft) 50 mg DAILY PO Last administered on 11/27/16 08:02; Admin Dose 50 MG; Start 11/19/16 at 09:00 Trazodone HCl (Desyrel) 50 mg HS PRN PO ANXIETY; Start 11/18/16 at 12:30 Ferrous Sulfate (Feosol Liquid Cup) 300 mg BID NGT Last administered on 08:02; Admin Dose 300 MG; Start 11/20/16 at 09:00 Zolpidem Tartrate 10 mg 10 mg HS PRN PO INSOMNIA Last administered on 22:21; Admin Dose 10 MG; Start 11/18/16 at 22:00 Ertapenem/Sodium Chloride (Invanz/NS) 100 ml @ 200 mls/hr Q24H IVPB Last administered on 11/26/16 17:17; Admin Dose 200 MLS/HR; Start 11/21/16 at 17:00 ; Stop 12/01/16 at 16:59 Naloxone HCl (Narcan) 0.2 mg Q2M PRN IV FOR RESP RATE 8 OR LESS; Start at 12:30 Acetaminophen (Tylenol Tab) 650 mg Q6H PRN PO PAIN AND OR ELEVATED TEMP Last administered on 11/23/16 23:26; Admin Dose 650 MG; Start 11/23/16 at 23:30 Simethicone (Mylicon) 80 mg Q6H PRN PO DISTENSION/GAS/BLOATING Last administered on 11/25/16 23:49; Admin Dose 80 MG; Start 11/26/16 at 00:00 Atorvastatin Calcium (Lipitor) 40 mg HS PO Last administered on 11/26/16 20:16 ; Admin Dose 40 MG; Start 11/26/16 at 21:00 Tramadol HCl (Ultram) 50 mg Q6H PRN PO PAIN AND/OR INFLAMMATION; Start at 19:00 Hydromorphone HCl (Dilaudid) 0.5 mg Q4H PRN IV PAIN Last administered on t 08:33; Admin Dose 0.5 MG; Start 11/26/16 at 19:00 LISA SALEH MD November 27, 2016 09:08
--- NOTE | 2016-11-27 11:37 | CONS ---
Date/Time of Note Date/Time of Note DATE: 11/27/16 TIME: 11:27 Assessment/Plan Assessment/Plan Chief Complaint/Hosp Course ID PROGRESS NOTE ABX DAY ## => Invanz + START TODAY Add Flagyl PO + Short course Rifaximin POD #4 => S/P nephrectomy due to staghorn calculus and a nonfunctional kidney. 24H INTERVAL SUMMARY * Resting doing well post-op recovery with increased diarrhea * Overall feels better -- A/A/O, feels better, no fevers, stable, resting comfortably, family members present * R-IJ TLC intake, using incentive spirometer PHYSICAL EXAMINATION: GENERAL: VSS, NAD, morbid-obese HEENT: Unremarkable NECK: Increased neck circumference w/right IJ TLC CHEST: Equal chest rise bilaterally, without dyspnea on observation HEART: Pulse RRR ABDOMEN: Soft EXTREMITIES: Warm SKIN: Warm, dry ID ASSESSMENT: 51 yo F w/ Morbid Obesity admitted with: 1. POD #4 => S/P nephrectomy due to staghorn calculus and a nonfunctional kidney. * Escherichia coli extended-spectrum beta-lactamase urinary tract infection, right chronic pyelonephritis. * Nonfunctioning right kidney with renal calculus and midureteral stone status post J stent placement. * Status post right radical nephrectomy done 11/23/16. 2. Diarrhea post ABX -> ABX associated diarrhea persisting/worsening 3. DMT2 4. HTN ABX ALLERGIES: Ceftriaxone/Vanco CURRENT ABX: #Invanz + Add Flagyl PO + Short course Rifaximin ID RECOMMENDATIONS: 1. Continue INVANZ course 11/21/16 - 12/01/16 2. Diarrhea persisting/increasing ->Add Flagyl PO + Short course Rifaximin . Problems: Consultation Date/Type/Reason Admit Date/Time November 17, 2016 at 19:05 Type of Consultation: ID Exam/Review of Systems Vital Signs Vitals Vital Signs Date Time Temp Pulse Resp B/P Pulse Ox O2 Delivery O2 Flow Rate FiO2 11/27/16 07:20 98.8 88 16 127/67 91 11/25/16 21:00 Nasal Cannula 2.0 Intake and Output 11/26/16 11/26/16 11/27/16 15:00 23:00 07:00 Intake Total 875 ml 810 ml 600 ml Balance 875 ml 810 ml 600 ml Results Result Diagram: 11/26/16 1310 11/25/16 0440 Results 24 hrs Laboratory Tests Test 11/26/16 12:04 11/26/16 13:10 11/26/16 17:34 11/26/16 20:22 Bedside Glucose 124 118 144 Hemoglobin 9.1 L Hematocrit 28.5 L Test 11/27/16 08:00 Bedside Glucose 130 Medications Medications Current Medications Benazepril HCl (Lotensin) 10 mg DAILY PO Last administered on 11/27/16 08:02; Admin Dose 10 MG; Start 11/18/16 at 09:00 Diphenhydramine HCl (Benadryl) 25 mg Q6H PRN PO ITCHING Last administered on 14:54; Admin Dose 25 MG; Start 11/17/16 at 23:00 Ondansetron HCl (Zofran Inj) 4 mg Q4H PRN IV NAUSEA AND/OR VOMITING Last administered on 11/26/16 23:58; Admin Dose 4 MG; Start 11/17/16 at 23:00 Diagnostic Test (Pha) (Accu-Chek) Check 2 am Accucheck only if... 02 XX ; Start 11/18/16 at 02:00 Miscellaneous Information 1 ea NOTE XX ; Start 11/17/16 at 23:30 Glucose (Glutose) 15 gm Q15M PRN PO DECREASED GLUCOSE; Start 11/17/16 at 23:30 Glucose (Glutose) 22.5 gm Q15M PRN PO DECREASED GLUCOSE; Start 11/17/16 at 23: 30 Dextrose (D50w Syringe) 25 ml Q15M PRN IV DECREASED GLUCOSE; Start 11/17/16 at 23:30 Dextrose (D50w Syringe) 50 ml Q15M PRN IV DECREASED GLUCOSE; Start 11/17/16 at 23:30 Glucagon (Glucagen) 1 mg Q15M PRN IM DECREASED GLUCOSE; Start 11/17/16 at 23:30 Glucose (Glutose) 15 gm Q15M PRN BUCCAL DECREASED GLUCOSE; Start 11/17/16 at 23 :30 Famotidine (Pepcid Iv) 20 mg DAILY IV Last administered on 11/27/16 08:02; Admin Dose 20 MG; Start 11/18/16 at 11:30 Docusate Sodium (Colace) 200 mg HS PO Last administered on 11/26/16 20:16; Admin Dose 200 MG; Start 11/18/16 at 21:00 Sertraline HCl (Zoloft) 50 mg DAILY PO Last administered on 11/27/16 08:02; Admin Dose 50 MG; Start 11/19/16 at 09:00 Trazodone HCl (Desyrel) 50 mg HS PRN PO ANXIETY; Start 11/18/16 at 12:30 Ferrous Sulfate (Feosol Liquid Cup) 300 mg BID NGT Last administered on 08:02; Admin Dose 300 MG; Start 11/20/16 at 09:00 Zolpidem Tartrate 10 mg 10 mg HS PRN PO INSOMNIA Last administered on 22:21; Admin Dose 10 MG; Start 11/18/16 at 22:00 Ertapenem/Sodium Chloride (Invanz/NS) 100 ml @ 200 mls/hr Q24H IVPB Last administered on 11/26/16 17:17; Admin Dose 200 MLS/HR; Start 11/21/16 at 17:00 ; Stop 12/01/16 at 16:59 Naloxone HCl (Narcan) 0.2 mg Q2M PRN IV FOR RESP RATE 8 OR LESS; Start at 12:30 Acetaminophen (Tylenol Tab) 650 mg Q6H PRN PO PAIN AND OR ELEVATED TEMP Last administered on 11/23/16 23:26; Admin Dose 650 MG; Start 11/23/16 at 23:30 Simethicone (Mylicon) 80 mg Q6H PRN PO DISTENSION/GAS/BLOATING Last administered on 11/25/16 23:49; Admin Dose 80 MG; Start 11/26/16 at 00:00 Atorvastatin Calcium (Lipitor) 40 mg HS PO Last administered on 11/26/16 20:16 ; Admin Dose 40 MG; Start 11/26/16 at 21:00 Tramadol HCl (Ultram) 50 mg Q6H PRN PO PAIN AND/OR INFLAMMATION; Start at 19:00 Hydromorphone HCl (Dilaudid) 0.5 mg Q4H PRN IV PAIN Last administered on 08:33; Admin Dose 0.5 MG; Start 11/26/16 at 19:00 EVELINE GONSALES NP November 27, 2016 11:37
[2016-11-27] MEDS: metroNIDAZOLE 250 MG TAB PO SCH ×3 (11:46→22:49)
[2016-11-27] MEDS: RIFAXIMIN 200 MG TAB PO SCH ×2 (13:12→21:30)
[2016-11-27] MEDS: ERTAPENEM SODIUM 1 GM in SOD CHLORIDE 0.9% 100 ML IVPB SCH (17:14)
[2016-11-27] MEDS: metFORMIN 850 MG TAB PO SCH (17:14)
[2016-11-27] MEDS: DOCUSATE SODIUM 100 MG CAP PO SCH (21:00)
[2016-11-27 21:13] VITALS: BP 143/65; RESP 20
[2016-11-27] MEDS: ATORVASTATIN 40 MG TAB PO SCH (21:30)
[2016-11-28] MEDS: ACCU-CHEK XX SCH (01:46)
[2016-11-28] MEDS: HYDROmorphONE 1 MG/ML SYG IV PRN ×7 (01:48→22:27)
[2016-11-28] MEDS: metroNIDAZOLE 250 MG TAB PO SCH ×2 (06:07→12:18)
--- NOTE | 2016-11-28 07:03 | PN ---
DATE: 11/27/2016 CARDIOLOGY FOLLOWUP SUBJECTIVE: Discussed with staff. The patient had no chest pain or pressure. No palpitation. Villarreal s have abdominal discomfort though. ____ was able to eat food yesterday. MEDICATIONS: Reviewed. PHYSICAL EXAMINATION: VITAL SIGNS: Temperature 98, heart rate of 88, blood pressure 127/67, respiratory rate 16. HEENT: Normocephalic, atraumatic, obese female. Pupils are equal. CARDIOVASCULAR: Regular rate and rhythm. PULMONARY: With no wheezes anteriorly. GASTROINTESTINAL: Soft, nontender. EXTREMITIES: With no significant lower extremity edema. NEUROLOGIC: Awake, responds appropriately. PSYCHIATRIC: Appeared to be calm. LABORATORY: Hemoglobin 9.1, hematocrit of 28.5. Glucose of 130. ASSESSMENT AND PLAN: 1. Status post right nephrectomy. 2. Renal staghorn calculus with extended-spectrum beta-lactamase urinary tract infection. 3. Hypertension. 4. Diabetes. 5. Morbid obesity. 6. Anemia. RECOMMENDATIONS: Continue with the current cardiac care. Postop care to be continued. Blood press ure with better control now. ____ tolerated. Diabetic management as per internal medicine. Dictated By: ISAAK BRICE/MIRA Conf#: [id number] DID#: [id number]
[2016-11-28 07:25] VITALS: BP 108/59; RESP 18
--- NOTE | 2016-11-28 07:25 | PN ---
DATE: 11/25/2016 SUBJECTIVE: Discussed with the staff. The patient denies any chest pain or pressure to me. Does c omplain of abdominal discomfort still. No more vomiting. MEDICATIONS: Reviewed. PHYSICAL EXAMINATION: VITAL SIGNS: Temperature 99.2, heart rate of 90, blood pressure 98/51, respiration rate of 19, satu rating 88%, with oxygen has improved to above 90s. HEENT: Normocephalic, atraumatic, obese, in no acute distress. Pupils are equal. CARDIOVASCULAR: Regular rate and rhythm, systolic murmur. PULMONARY: With no wheezes heard. GASTROINTESTINAL: Obese, soft, positive tender to palpation. EXTREMITIES: With trivial edema. NEUROLOGIC: Awake and alert. PSYCHIATRIC: Appeared to be calm. LABORATORY: WBC of 7.6, hemoglobin 8.9, platelets of 192. Sodium 136, potassium 3.5, BUN 6, creati nine 0.76, glucose of 96. ASSESSMENT AND PLAN: 1. Right renal staghorn calculus, status post right nephrectomy. 2. Extended-spectrum beta-lactamase urinary tract infection. 3. Hypertension. 4. Diabetes. 5. Anemia. 6. abnormalities. 7. Hypoxemia, most likely postoperative atelectasis and poor respiratory effort due to abdominal pa in. RECOMMENDATIONS: We will continue with the current cardiac care. Postop care to be continued. Indra palacio management as per surgery. Dictated By: ISAAK BRICE/MIRA Conf#: [id number] DID#: [id number]
[2016-11-28] MEDS: Insulin NOVOLOG SS MODERATE Algorithm (SS with meals and bedtime) SC SCH ×4 (08:00→20:51)
[2016-11-28] MEDS: FAMOTIDINE 20 MG INJ IV SCH (08:11)
[2016-11-28] MEDS: metFORMIN 850 MG TAB PO SCH ×2 (08:11→17:25)
[2016-11-28] MEDS: REPAGLINIDE 1 MG TAB PO SCH ×3 (08:11→17:25)
[2016-11-28] MEDS: ONDANSETRON 4 MG INJ IV PRN (08:11)
[2016-11-28] MEDS: FERROUS SULFATE 60 MG/ML 5ML CUP NGT SCH ×2 (08:11→20:46)
[2016-11-28] MEDS: RIFAXIMIN 200 MG TAB PO SCH ×2 (08:11→12:20)
[2016-11-28] MEDS: SERTRALINE 50 MG TAB PO SCH (08:11)
[2016-11-28] MEDS: BENAZEPRIL 10 MG TAB PO SCH (08:12)
--- NOTE | 2016-11-28 08:31 | OPR ---
DATE OF OPERATION: 11/23/2016 POSTOPERATIVE DIAGNOSES: 1. Right atrophic kidney. 2. Right chronic pyelonephritis. 3. Right retroperitoneal fibrosis. POSTOPERATIVE DIAGNOSES: 1. Right atrophic kidney. 2. Right chronic pyelonephritis. 3. Retroperitoneal fibrosis. 4. Intraperitoneal fibrosis. PROCEDURES PERFORMED: 1. Laparoscopic right nephrectomy. 2. Laparoscopic resection of right ureter (ureterectomy). 3. Laparoscopic right ureterolysis. 4. Laparoscopic lysis of adhesions. 5. Laparoscopic removal of right ureteral stent. INDICATIONS FOR PROCEDURE: This patient has a longstanding history of right ureteral obstruction an d right renal obstruction due to a large ureteral stone as well as a large kidney stone. She is sta tus post placement of a right ureteral stent. The patient has developed a nonfunctioning right kidn ey with chronic pyelonephritis as well as chronic flank pain, abdominal pain. The patient has been in and out of hospitals for many months. She has been on multiple antibiotics. She has developed a n extended spectrum beta-lactamase Escherichia coli urinary tract infection. The patient was transf erred to [facility] undergo a right nephrectomy for this problem. Since she is a Yazidism, and she has a complicated medical and urologic history, it has been difficult for her to f ind a provider who would be able to provide this surgical management for her. She was transferred t [facility] so that I can perform this procedure for her. CONSENT: Procedure has been explained to the patient in detail. The risks and benefits have been d iscussed. She understands the risks include, but are not limited to, infection, bleeding, damage to adjacent structures, heart problems, lung problems, possibility of need for further surgery, DVT, P E, NM, CVA, nonresolution of symptoms, recurrence of symptoms, need for other treatments, need for o ther surgeries, need to convert to open surgery, bowel injury, vascular injury, liver injury, colon ic injury massive blood loss, . All of her questions have been answered, no guarantees given. The patient would like to proceed. SURGEON: Lynn Laughlin MD PROMOTIONS EXECUTIVE: Benjamin Lu MD INTRAOPERATIVE FINDINGS: Due to the fact that the patient had a prior open cholecystectomy, there w as a high degree of intraperitoneal adhesions. Furthermore, the ureter was cemented and fibrosed in the retroperitoneum against the retroperitoneal structures. The ureter was taken down all the way to about 3 to 4 cm distal to the area of her impacted stone and make sure that the entire ureter con taining the stone had been removed. The right adrenal gland was spared. Kidney, Gerota fascia, and ureter were resected en bloc. DESCRIPTION OF PROCEDURE: The patient was brought to the operating room, underwent general endotrac heal tube anesthesia after all the lines had been placed and the Lainez catheter had been placed. Th e patient was placed in the lateral decubitus position with the right flank up. All the pressure po ints were accounted for. Table was flexed. The patient was secured against the table using gel rol l and tape. Pillows were placed between the legs. Left hip and knees were also flexed. Abdomen wa s then prepped and draped in the usual sterile fashion. Abdomen was insufflated supraumbilically. Laparoscopic port was placed in the right lower quadrant. Laparoscopy was performed indicating the area of the adhesions. The rest of the laparoscopic ports were placed under direct vision. At this point, a lysis of adhesions was initiated. The patient's small bowel as well as omentum were adher ed to the abdominal wall as well as to the right upper quadrant. This obstructed the view to the Ge rota's fascia on the upper pole of the kidney. Furthermore, the adhesions of the liver to the oment um had been placed in a fashion that was not possible to initially get access to the renal hilum. T herefore, all these adhesions had to be taken down in order to be able to better retract the liver f urther superiorly. Dissection was carried through the adhesions taking care not to injure the bowel . Next the liver was retracted cephalad. The rest of the laparoscopic ports had also been placed. An incision was made in the white line of Toldt on the right side. The colon was mobilized medially . This mobilization was initiated from the pelvic brim at the cecum and dissection was carried all the way to the hepatic flexure. Colon was then mobilized away also off the liver. This was done un til the duodenum was identified. Duodenum was then Kocherized. Dissection was carried down onto th e inferior vena cava. There was increased fibrotic tissue around the vena cava which was carefully dissected. The gonadal vein was identified. Next, the gonadal vein was dissected towards the infer ior vena cava. Three Weck clips were placed near the insertion point of the gonadal vein into the v stefanie cava and 2 on the specimen side. The gonadal vein was then divided. Dissection was then carried further cephalad along the vena cava until the renal vein was identified . Of note, the patient had 2 large renal veins. The more inferior renal vein was associated a gerard l artery. These renal veins were carefully dissected. Next, the renal artery was identified. This was dissected from the surrounding structures. Three surgical Hemoclips were placed on the stay si de and one on the kidney side. The renal artery was then divided. Next the lower renal vein was al so clipped and divided. The upper renal vein was then divided using an endovascular stapler. The p osterior attachments of the kidney were also carefully taken down. There was increased desmoplastic tissue and fibrotic tissue in this area. The medial aspect of the kidney was adherent to the vena cava. This area was carefully dissected in order to not damage the vena cava as this was done, the kidney was further from the vena cava medially. Next, dissection was carried more posteri tay. Attachments of the kidney to the posterior abdominal wall and psoas were pedicalized. Some o f the vascular in this area was also clipped and divided until the kidney had been freed up posterio rly. Dissection was then carried towards the upper pole. The Gerota fascia was opened. The edge of adre nal gland was identified. The upper pole of the kidney, Gerota fascia was from the liver and the adrenal gland using endovascular stapler as well as the LigaSure device in order to maintain the integrity of the adrenal gland. Dissection was carried in this fashion until the hepatorenal l igament had been completely divided and the adrenal gland had been from the upper pole of the kidney. At this point, the kidney was kept attached laterally and inferiorly. Attention was paid to identif ication of the ureter. The ureter was identified near the gonadal vein. There was increased desmop lastic reaction and fibrosis in this area. The fibrotic tissues were carefully dissected to free th e ureter off the retroperitoneum. As this dissection was further carried, the area of the ureter ne ar the crossover of the common iliac artery was identified. In this area, the ureter was severely a dhered to the surrounding tissue. The bifurcation of the aorta was identified. The left and right common iliac arteries were identified. Tissues around this area were dissected in order to further identify the anterior and lateral aspects of the common iliac arteries. As this was done, the fibro tic tissue was swept off the common iliac artery on the right side in order to free the ureter. Fur thermore, the gonadal vein was off the ureter. The gonadal vein was then stapled using an endovascular stapler to dissect it away from the ureter. A large mass of tissue which contained fi brotic material was all dissected off the retroperitoneum, again taking care not to injure the commo n iliac artery or the vein. Further dissection was then carried distally. As this was done, the broad ligament was reached. Th ere were further adhesions and fibrotic material in this area. The bowel was placed on gentle tract ion. The broad ligament was partially opened in order to identify the rest of the ureter. The uret er was then further dissected from surrounding structures. The vasculature in this area was clipped and divided. The area of the ureteral stone was correlated to the CT scan findings. It was appare nt that the ureter had been dissected distal enough to have incorporated the stone within the specim en. At this point, the ureter was further from the surrounding structures. Next, this ar ea was stapled using endovascular stapler in order to free the ureter. Some of the periureteral fib rotic material was also divided and clipped until the ureter had been completely freed from its surr ounding structures. At this point, attention was paid back to the kidney. The lateral aspects of the kidney were dissec gallo off the abdominal wall. As this was done, the kidney was freed laterally, superiorly, and infer iorly. Dissection was then carried down to the lower pole aspect of the kidney. These areas were a lso taken down until the kidney had been completely freed from the renal fossa. Of note, prior to t ransection of the ureter deep in the pelvis, the ureteral wall had been opened distally to identify the stent. The stent was then grasped and brought completely out of the ureter. The stent was then visually examined. It appeared that the entire stent had been removed intact. Once this had been confirmed and the ureter had been dissected distal enough, at that point the ureter was divided. At this point, the kidney, Gerota fascia, and the ureter, the entire specimen was placed in the righ t upper quadrant area near the liver. The renal fossa was carefully examined. This area was irriga gallo. No bleeding was identified. The stumps of the renal artery and the veins were intact without evidence of bleeding. The area of the adrenal gland was examined. There was no evidence of bleedin g. Bowel was inspected, and no bowel injuries had been identified. At this point, the far right lo wer quadrant port site was used to place a 15 mm EndoCatch bag. The EndoCatch bag was opened. The entire specimen was placed into the bag. Next, the bag was closed. Next, the laparoscopic port sit es were identified. These port sites were closed under direct vision using #1 Vicryl and the laparo scopic Endo Close device. Once this was done, the far right lower quadrant port site was made large r in a transverse incision. This incision was about 4 to 5 cm. Dissection was carried through the 3 muscular layers. Abdominal cavity and peritoneal cavity were opened. The specimen was then deliv ered within the EndoCatch bag from this incision. The abdominal cavity was inspected through the in cision. No evidence of bleeding was identified. The transversus muscle was then closed using #1 Vi cryl running suture. The wound was then irrigated, injected with Marcaine. Internal oblique was al so closed with #1 Vicryl running suture. Again, the wound was irrigated and injected with Marcaine. Next, the external oblique fascia was closed with #1 Vicryl running suture. The fascia was also i njected with Marcaine and then irrigated. The subcutaneous layer was closed with 3-0 Vicryl. The r est of the laparoscopic port sites had also been placed under direct vision. The skin to all the wo unds was then stapled. Dry dressings were applied. The patient was placed back in a supine positio n. She was awakened, extubated, and taken to recovery. POSTOPERATIVE CONDITION: Stable. COMPLICATIONS: None. ESTIMATED BLOOD LOSS: 100 mL. BLOOD ADMINISTERED: None. SPECIMENS SENT TO LAB: Kidney, ureter, Gerota fascia en bloc as well as right ureteral stent separa tely. Of note, once the specimen had been removed, the specimen was inspected. The ureter was cut open. The impacted stone within the ureter was identified to be within the specimen; therefore, it appeare d that the kidney and the portion of the ureter that contained the impacted mid ureteral stone had b een removed. Dictated By: LYNN LAUGHLIN MD SR/NTS Conf#: [id number] [facility]#: [id number]
--- NOTE | 2016-11-28 15:31 | PN ---
DATE: 11/28/2016 SUBJECTIVE: Infectious disease progress note. Patient is alert, lying comfortably in bed. No feve rs. No vomiting or diarrhea. No labs this morning. Stool for C. diff came back negative. PHYSICAL EXAMINATION: GENERAL: Morbidly obese, middle-aged woman who is awake, in no distress. HEENT: Head atraumatic, normocephalic. Sclerae anicteric. Buccal mucosa dry. NECK: Supple, trachea midline. CHEST: Rise symmetrical. Breath sounds clear. HEART: S1, S2. ABDOMEN: Soft, bowel tones present. EXTREMITIES: Without cyanosis. ASSESSMENT: 1. Acute on chronic Escherichia coli extended-spectrum beta-lactamase pyelonephritis. 2. Status post nephrectomy due to staghorn calculus and nonfunctional kidney, postop day #5. 3. Morbid obesity. 4. Diabetes. 5. Hypertension. PLAN: The patient remains stable. Repeat blood cultures negative. Stool for Clostridium difficile negative. We will continue her on Invanz until 12/01/2016, follow urology recommendations. Dictated By: CHELITA DAVIES WET END TESTER for NGA MACIAS/MIRA Conf#: [id number] DID#: [id number]
[2016-11-28] MEDS: ERTAPENEM SODIUM 1 GM in SOD CHLORIDE 0.9% 100 ML IVPB SCH (17:25)
--- NOTE | 2016-11-28 17:45 | PN ---
Date/Time of Note Date/Time of Note DATE: 11/28/16 TIME: 17:41 Assessment/Plan VTE Prophylaxis VTE Prophylaxis Intervention: SCD's Lines/Catheters Urinary Cath still in place: No Assessment/Plan Chief Complaint/Hosp Course (1) Status post nephrectomy Nephrectomy done secondary to staghorn calculus and a nonfunctional kidney Pain control with Dilaudid (2) Chronic kidney disease Stable (3) Obesity (BMI 30-39.9) Calorie restriction diet. (4) Diabetes mellitus type 2 in obese Off of insulin using oral agents she has very good control without hypoglycemia. (5) Iron deficiency anemia Monitor (6) Urinary tract infection due to ESBL Klebsiella Continue antibiotics Patient is being held in the hospital due to the logistical issues getting her set up for home IV antibiotic therapy and the cooperation from her IPA (7) Moderate late onset dysthymic disorder, in partial remission, with anxious distress, with intermittent major depressive episodes, with current episode Continue on treatment Prophylaxis: SCDs Problems: Subjective 24 Hr Interval Summary Musculoskeletal: back pain Exam/Review of Systems Vital Signs Vitals Vital Signs Date Time Temp Pulse Resp B/P Pulse Ox O2 Delivery O2 Flow Rate FiO2 11/28/16 07:25 98.8 85 18 108/59 91 11/25/16 21:00 Nasal Cannula 2.0 Intake and Output 11/27/16 11/27/16 11/28/16 15:00 23:00 07:00 Intake Total 110 ml 690 ml 720 ml Balance 110 ml 690 ml 720 ml Exam Constitutional: alert, oriented Respiratory: clear to auscultation Cardiovascular: regular rate and rhythm Gastrointestinal: soft, No distended Musculoskeletal: nl extremities to inspection Results Result Diagram: 11/26/16 1310 11/25/16 0440 Results 24 hrs Laboratory Tests Test 11/27/16 21:45 11/28/16 08:05 11/28/16 12:17 11/28/16 17:22 Bedside Glucose 91 126 130 119 Medications Medications Current Medications Benazepril HCl (Lotensin) 10 mg DAILY PO Last administered on 11/28/16 08:12; Admin Dose 10 MG; Start 11/18/16 at 09:00 Diphenhydramine HCl (Benadryl) 25 mg Q6H PRN PO ITCHING Last administered on 14:54; Admin Dose 25 MG; Start 11/17/16 at 23:00 Ondansetron HCl (Zofran Inj) 4 mg Q4H PRN IV NAUSEA AND/OR VOMITING Last administered on 11/28/16 08:11; Admin Dose 4 MG; Start 11/17/16 at 23:00 Diagnostic Test (Pha) (Accu-Chek) Check 2 am Accucheck only if... 02 XX ; Start 11/18/16 at 02:00 Miscellaneous Information 1 ea NOTE XX ; Start 11/17/16 at 23:30 Glucose (Glutose) 15 gm Q15M PRN PO DECREASED GLUCOSE; Start 11/17/16 at 23:30 Glucose (Glutose) 22.5 gm Q15M PRN PO DECREASED GLUCOSE; Start 11/17/16 at 23: 30 Dextrose (D50w Syringe) 25 ml Q15M PRN IV DECREASED GLUCOSE; Start 11/17/16 at 23:30 Dextrose (D50w Syringe) 50 ml Q15M PRN IV DECREASED GLUCOSE; Start 11/17/16 at 23:30 Glucagon (Glucagen) 1 mg Q15M PRN IM DECREASED GLUCOSE; Start 11/17/16 at 23:30 Glucose (Glutose) 15 gm Q15M PRN BUCCAL DECREASED GLUCOSE; Start 11/17/16 at 23 :30 Famotidine (Pepcid Iv) 20 mg DAILY IV Last administered on 11/28/16 08:11; Admin Dose 20 MG; Start 11/18/16 at 11:30 Docusate Sodium (Colace) 200 mg HS PO Last administered on 11/26/16 20:16; Admin Dose 200 MG; Start 11/18/16 at 21:00 Sertraline HCl (Zoloft) 50 mg DAILY PO Last administered on 11/28/16 08:11; Admin Dose 50 MG; Start 11/19/16 at 09:00 Trazodone HCl (Desyrel) 50 mg HS PRN PO ANXIETY Last administered on 11/27/16 22:49; Admin Dose 50 MG; Start 11/18/16 at 12:30 Ferrous Sulfate (Feosol Liquid Cup) 300 mg BID NGT Last administered on 08:11; Admin Dose 300 MG; Start 11/20/16 at 09:00 Zolpidem Tartrate 10 mg 10 mg HS PRN PO INSOMNIA Last administered on 22:21; Admin Dose 10 MG; Start 11/18/16 at 22:00 Ertapenem/Sodium Chloride (Invanz/NS) 100 ml @ 200 mls/hr Q24H IVPB Last administered on 11/28/16 17:25; Admin Dose 200 MLS/HR; Start 11/21/16 at 17:00 ; Stop 12/01/16 at 16:59 Naloxone HCl (Narcan) 0.2 mg Q2M PRN IV FOR RESP RATE 8 OR LESS; Start at 12:30 Acetaminophen (Tylenol Tab) 650 mg Q6H PRN PO PAIN AND OR ELEVATED TEMP Last administered on 11/23/16 23:26; Admin Dose 650 MG; Start 11/23/16 at 23:30 Simethicone (Mylicon) 80 mg Q6H PRN PO DISTENSION/GAS/BLOATING Last administered on 11/25/16 23:49; Admin Dose 80 MG; Start 11/26/16 at 00:00 Atorvastatin Calcium (Lipitor) 40 mg HS PO Last administered on 11/27/16 21:30 ; Admin Dose 40 MG; Start 11/26/16 at 21:00 Tramadol HCl (Ultram) 50 mg Q6H PRN PO PAIN AND/OR INFLAMMATION; Start at 19:00 Hydromorphone HCl (Dilaudid) 1 mg Q3H PRN IV PAIN Last administered on 16:20; Admin Dose 1 MG; Start 11/28/16 at 12:00 MARI GALAVIZ November 28, 2016 17:45
--- NOTE | 2016-11-28 20:34 | PN ---
Date/Time of Note Date/Time of Note DATE: 11/28/16 TIME: 20:27 Assessment/Plan VTE Prophylaxis VTE Prophylaxis Intervention: ambulation Lines/Catheters Urinary Cath still in place: No Assessment/Plan Assessment/Plan Assessment: Pt is S/P Right lap nephrectomy for non functioning Kidney. Pt is ready for discharge from surgical standpoint However, she needs to get IV Abx for her ESBL ECOLI Pt's insurance apparently not yet agreeing to cover cost of the treatment She is now on regular diet C Diff is negative ESBL ECOLI Plan: Consider Re-transfer to hospital that pt came from, for the rest of pt;s medical treatment Otherwise, PICC line + Home IV abx Subjective 24 Hr Interval Summary Free Text/Dictation Pt tolerating regular diet and having bowel movement. She report she a small amount of diarrhea Exam/Review of Systems Vital Signs Vitals Vital Signs Date Time Temp Pulse Resp B/P Pulse Ox O2 Delivery O2 Flow Rate FiO2 11/28/16 07:25 98.8 85 18 108/59 91 11/25/16 21:00 Nasal Cannula 2.0 Intake and Output 11/27/16 11/27/16 11/28/16 15:00 23:00 07:00 Intake Total 110 ml 690 ml 720 ml Balance 110 ml 690 ml 720 ml Exam Gastrointestinal: non-tender (wounds C/D/I), soft Results Result Diagram: 11/26/16 1310 11/25/16 0440 Results 24 hrs Laboratory Tests Test 11/27/16 21:45 11/28/16 08:05 11/28/16 12:17 11/28/16 17:22 Bedside Glucose 91 126 130 119 Medications Medications Current Medications Benazepril HCl (Lotensin) 10 mg DAILY PO Last administered on 11/28/16 08:12; Admin Dose 10 MG; Start 11/18/16 at 09:00 Diphenhydramine HCl (Benadryl) 25 mg Q6H PRN PO ITCHING Last administered on 14:54; Admin Dose 25 MG; Start 11/17/16 at 23:00 Ondansetron HCl (Zofran Inj) 4 mg Q4H PRN IV NAUSEA AND/OR VOMITING Last administered on 11/28/16 08:11; Admin Dose 4 MG; Start 11/17/16 at 23:00 Diagnostic Test (Pha) (Accu-Chek) Check 2 am Accucheck only if... 02 XX ; Start 11/18/16 at 02:00 Miscellaneous Information 1 ea NOTE XX ; Start 11/17/16 at 23:30 Glucose (Glutose) 15 gm Q15M PRN PO DECREASED GLUCOSE; Start 11/17/16 at 23:30 Glucose (Glutose) 22.5 gm Q15M PRN PO DECREASED GLUCOSE; Start 11/17/16 at 23: 30 Dextrose (D50w Syringe) 25 ml Q15M PRN IV DECREASED GLUCOSE; Start 11/17/16 at 23:30 Dextrose (D50w Syringe) 50 ml Q15M PRN IV DECREASED GLUCOSE; Start 11/17/16 at 23:30 Glucagon (Glucagen) 1 mg Q15M PRN IM DECREASED GLUCOSE; Start 11/17/16 at 23:30 Glucose (Glutose) 15 gm Q15M PRN BUCCAL DECREASED GLUCOSE; Start 11/17/16 at 23 :30 Famotidine (Pepcid Iv) 20 mg DAILY IV Last administered on 11/28/16 08:11; Admin Dose 20 MG; Start 11/18/16 at 11:30 Docusate Sodium (Colace) 200 mg HS PO Last administered on 11/26/16 20:16; Admin Dose 200 MG; Start 11/18/16 at 21:00 Sertraline HCl (Zoloft) 50 mg DAILY PO Last administered on 11/28/16 08:11; Admin Dose 50 MG; Start 11/19/16 at 09:00 Trazodone HCl (Desyrel) 50 mg HS PRN PO ANXIETY Last administered on 11/27/16 22:49; Admin Dose 50 MG; Start 11/18/16 at 12:30 Ferrous Sulfate (Feosol Liquid Cup) 300 mg BID NGT Last administered on 08:11; Admin Dose 300 MG; Start 11/20/16 at 09:00 Zolpidem Tartrate 10 mg 10 mg HS PRN PO INSOMNIA Last administered on 22:21; Admin Dose 10 MG; Start 11/18/16 at 22:00 Ertapenem/Sodium Chloride (Invanz/NS) 100 ml @ 200 mls/hr Q24H IVPB Last administered on 11/28/16 17:25; Admin Dose 200 MLS/HR; Start 11/21/16 at 17:00 ; Stop 12/01/16 at 16:59 Naloxone HCl (Narcan) 0.2 mg Q2M PRN IV FOR RESP RATE 8 OR LESS; Start at 12:30 Acetaminophen (Tylenol Tab) 650 mg Q6H PRN PO PAIN AND OR ELEVATED TEMP Last administered on 11/23/16 23:26; Admin Dose 650 MG; Start 11/23/16 at 23:30 Simethicone (Mylicon) 80 mg Q6H PRN PO DISTENSION/GAS/BLOATING Last administered on 11/25/16 23:49; Admin Dose 80 MG; Start 11/26/16 at 00:00 Atorvastatin Calcium (Lipitor) 40 mg HS PO Last administered on 11/27/16 21:30 ; Admin Dose 40 MG; Start 11/26/16 at 21:00 Tramadol HCl (Ultram) 50 mg Q6H PRN PO PAIN AND/OR INFLAMMATION; Start at 19:00 Hydromorphone HCl (Dilaudid) 1 mg Q3H PRN IV PAIN Last administered on 19:27; Admin Dose 1 MG; Start 11/28/16 at 12:00 LYNN SERNA November 28, 2016 20:34
[2016-11-28] MEDS: ATORVASTATIN 40 MG TAB PO SCH (20:46)
[2016-11-28] MEDS: DOCUSATE SODIUM 100 MG CAP PO SCH (21:00)
--- NOTE | 2016-11-28 21:18 | PN ---
DATE: 11/28/2016 SUBJECTIVE: Discussed with the staff. The patient has been complaining of right lower quadrant abd ominal discomfort at site of surgery. No chest pain or pressure. No palpitation. Breathing has re mained stable. MEDICATIONS: Reviewed. PHYSICAL EXAMINATION: VITAL SIGNS: Temperature 98.8, heart rate of 85, blood pressure 108/59, respiratory rate of 18. HEENT: Normocephalic, atraumatic. Obese female. No acute distress. Pupils are equal. CARDIOVASCULAR: Regular rate and rhythm. No murmur appreciated. PULMONARY: No wheezes or rhonchi. GASTROINTESTINAL: Soft. Mildly tender to palpation on the right side. Obese. No rebound, no guar ding. EXTREMITIES: Trivial edema. NEUROLOGIC: Awake and alert. PSYCHIATRIC: Appeared to be anxious. LABORATORY: Glucose 119. ASSESSMENT AND PLAN: 1. Right renal ____ calculus, status post right nephrectomy. 2. Extended-spectrum beta-lactamase urinary tract infection. Antibiotic. 3. Hypertension. 4. Diabetes. 5. Anemia. RECOMMENDATIONS: Will continue with the current cardiac care. Antibiotic as per Internal Medicine and ID recommendation. Continue with the postop care. Dictated By: ISAAK WIGGINS MD AV/NTS Conf#: [id number] DID#: [id number] CC: MARI GALAVIZ MD;*EndCC*
[2016-11-28 22:03] VITALS: BP 125/64; RESP 18
[2016-11-28] MEDS: ZOLPIDEM 5 MG TAB PO PRN (23:39)
[2016-11-29] MEDS ORDERED: ALBUTEROL/IPRATROPIUM (NEB) 3 ML AMP HHN PRN (02:00)
[2016-11-29] MEDS: ACCU-CHEK XX SCH (02:00)
[2016-11-29] MEDS: HYDROmorphONE 1 MG/ML SYG IV PRN ×6 (02:36→20:56)
[2016-11-29] MEDS: ONDANSETRON 4 MG INJ IV PRN ×2 (02:36→18:13)
[2016-11-29 05:49] LABS: ADD SCAN DIFF NO
[2016-11-29 05:52] LABS: BASOPHILS % 0.1 % (0.0-2.0); EOSINOPHILS # 0.5 10^3/ul (0.0-0.5); EOSINOPHILS % 4.9 % (0.0-7.0); HEMATOCRIT 29.1 % (37.0-47.0); HEMOGLOBIN 9.1 g/dl (12.0-16.0); LYMPHOCYTES # 1.7 10^3/ul (0.8-2.9); LYMPHOCYTES % 18.2 % (15.0-51.0); MEAN CORPUSCULAR HEMOGLOBIN 25.9 pg (29.0-33.0); MEAN CORPUSCULAR HGB CONC 31.3 g/dl (32.0-37.0); MEAN CORPUSCULAR VOLUME 82.9 fl (82.0-101.0); MEAN PLATELET VOLUME 8.7 fl (7.4-10.4); MONOCYTE # 0.6 10^3/ul (0.3-0.9); NEUTROPHIL # 6.5 10^3/ul (1.6-7.5); NEUTROPHILS % 70.2 % (39.0-77.0); NUCLEATED RED BLOOD CELLS% 0.2 /100WBC (0.0-0.0); PLATELET COUNT 273 10^3/UL (140-415); RED BLOOD COUNT 3.51 10^6/ul (4.20-5.40); RED CELL DISTRIBUTION WIDTH 14.4 % (11.5-14.5); WHITE BLOOD COUNT 9.3 10^3/ul (4.8-10.8)
[2016-11-29 06:00] LABS: POTASSIUM 3.3 mmol/L (3.5-5.1)
[2016-11-29 06:03] LABS: CALCIUM 8.6 mg/dl (8.4-10.2); CREATININE 0.83 mg/dl (0.44-1.00)
[2016-11-29 06:04] LABS: MAGNESIUM 1.4 mg/dl (1.7-2.5)
[2016-11-29 07:36] VITALS: BP 109/55; RESP 20
[2016-11-29] MEDS: Insulin NOVOLOG SS MODERATE Algorithm (SS with meals and bedtime) SC SCH ×4 (08:00→20:47)
[2016-11-29] MEDS: FAMOTIDINE 20 MG INJ IV SCH (08:09)
[2016-11-29] MEDS: SERTRALINE 50 MG TAB PO SCH (08:09)
[2016-11-29] MEDS: FERROUS SULFATE 60 MG/ML 5ML CUP NGT SCH ×2 (08:09→20:52)
[2016-11-29] MEDS: REPAGLINIDE 1 MG TAB PO SCH ×3 (08:09→17:31)
[2016-11-29] MEDS: metFORMIN 850 MG TAB PO SCH ×2 (08:09→17:31)
[2016-11-29 08:18] VITALS: BP 110/61
[2016-11-29] MEDS: BENAZEPRIL 10 MG TAB PO SCH (08:18)
[2016-11-29] MEDS ORDERED: POTASSIUM CHLORIDE (SR) 20 MEQ TAB PO STA (10:09)
[2016-11-29] MEDS ORDERED: MAGNESIUM SULFATE 4 GM/100 ML 100 ML IVPB ONE (11:30)
--- NOTE | 2016-11-29 11:54 | PN ---
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 (4) Diabetes mellitus type 2 in obese Off of insulin using oral agents she has very good control without hypoglycemia. 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 Defer antibiotic coverage to ID Prophylaxis: SCDs Problems: Subjective 24 Hr Interval Summary Constitutional: no complaints Exam/Review of Systems Vital Signs Vitals Vital Signs Date Time Temp Pulse Resp B/P Pulse Ox O2 Delivery O2 Flow Rate FiO2 11/29/16 08:18 110/61 11/29/16 07:36 98.4 82 20 96 11/29/16 02:50 3.0 11/29/16 02:50 Nasal Cannula Intake and Output 11/28/16 11/28/16 11/29/16 15:00 23:00 07:00 Intake Total 870 ml 480 ml Balance 870 ml 480 ml Exam Constitutional: alert Respiratory: clear to auscultation Cardiovascular: regular rate and rhythm Gastrointestinal: soft, No distended Musculoskeletal: nl extremities to inspection Results Result Diagram: 11/29/16 0432 11/29/16 0442 Results 24 hrs Laboratory Tests Test 11/28/16 12:17 11/28/16 17:22 11/28/16 20:49 11/29/16 04:32 Bedside Glucose 130 119 83 White Blood Count 9.3 # Red Blood Count 3.51 L Hemoglobin 9.1 L Hematocrit 29.1 L Mean Corpuscular Volume 82.9 Mean Corpuscular Hemoglobin 25.9 L Mean Corpuscular Hemoglobin Concent 31.3 L Red Cell Distribution Width 14.4 Platelet Count 273 # Mean Platelet Volume 8.7 Neutrophils % 70.2 Lymphocytes % 18.2 Monocytes % 6.0 Eosinophils % 4.9 Basophils % 0.1 Nucleated Red Blood Cells % 0.2 H Neutrophils # 6.5 Lymphocytes # 1.7 Monocytes # 0.6 Eosinophils # 0.5 Basophils # 0.0 Nucleated Red Blood Cells # 0.0 Test 11/29/16 04:42 11/29/16 08:08 Sodium Level 139 Potassium Level 3.3 L Chloride Level 99 Carbon Dioxide Level 27 Anion Gap 16 Blood Urea Nitrogen 12 Creatinine 0.83 Glucose Level 134 Calcium Level 8.6 Magnesium Level 1.4 L Bedside Glucose 125 Medications Medications Current Medications Benazepril HCl (Lotensin) 10 mg DAILY PO Last administered on 11/29/16 08:18; Admin Dose 10 MG; Start 11/18/16 at 09:00 Diphenhydramine HCl (Benadryl) 25 mg Q6H PRN PO ITCHING Last administered on 14:54; Admin Dose 25 MG; Start 11/17/16 at 23:00 Ondansetron HCl (Zofran Inj) 4 mg Q4H PRN IV NAUSEA AND/OR VOMITING Last administered on 11/29/16 02:36; Admin Dose 4 MG; Start 11/17/16 at 23:00 Diagnostic Test (Pha) (Accu-Chek) Check 2 am Accucheck only if... 02 XX ; Start 11/18/16 at 02:00 Miscellaneous Information 1 ea NOTE XX ; Start 11/17/16 at 23:30 Glucose (Glutose) 15 gm Q15M PRN PO DECREASED GLUCOSE; Start 11/17/16 at 23:30 Glucose (Glutose) 22.5 gm Q15M PRN PO DECREASED GLUCOSE; Start 11/17/16 at 23: 30 Dextrose (D50w Syringe) 25 ml Q15M PRN IV DECREASED GLUCOSE; Start 11/17/16 at 23:30 Dextrose (D50w Syringe) 50 ml Q15M PRN IV DECREASED GLUCOSE; Start 11/17/16 at 23:30 Glucagon (Glucagen) 1 mg Q15M PRN IM DECREASED GLUCOSE; Start 11/17/16 at 23:30 Glucose (Glutose) 15 gm Q15M PRN BUCCAL DECREASED GLUCOSE; Start 11/17/16 at 23 :30 Famotidine (Pepcid Iv) 20 mg DAILY IV Last administered on 11/29/16 08:09; Admin Dose 20 MG; Start 11/18/16 at 11:30 Docusate Sodium (Colace) 200 mg HS PO Last administered on 11/26/16 20:16; Admin Dose 200 MG; Start 11/18/16 at 21:00 Sertraline HCl (Zoloft) 50 mg DAILY PO Last administered on 11/29/16 08:09; Admin Dose 50 MG; Start 11/19/16 at 09:00 Trazodone HCl (Desyrel) 50 mg HS PRN PO ANXIETY Last administered on 11/27/16 22:49; Admin Dose 50 MG; Start 11/18/16 at 12:30 Ferrous Sulfate (Feosol Liquid Cup) 300 mg BID NGT Last administered on 08:09; Admin Dose 300 MG; Start 11/20/16 at 09:00 Zolpidem Tartrate 10 mg 10 mg HS PRN PO INSOMNIA Last administered on 23:39; Admin Dose 10 MG; Start 11/18/16 at 22:00 Ertapenem/Sodium Chloride (Invanz/NS) 100 ml @ 200 mls/hr Q24H IVPB Last administered on 11/28/16 17:25; Admin Dose 200 MLS/HR; Start 11/21/16 at 17:00 ; Stop 12/01/16 at 16:59 Naloxone HCl (Narcan) 0.2 mg Q2M PRN IV FOR RESP RATE 8 OR LESS; Start at 12:30 Acetaminophen (Tylenol Tab) 650 mg Q6H PRN PO PAIN AND OR ELEVATED TEMP Last administered on 11/23/16 23:26; Admin Dose 650 MG; Start 11/23/16 at 23:30 Simethicone (Mylicon) 80 mg Q6H PRN PO DISTENSION/GAS/BLOATING Last administered on 11/25/16 23:49; Admin Dose 80 MG; Start 11/26/16 at 00:00 Atorvastatin Calcium (Lipitor) 40 mg HS PO Last administered on 11/28/16 20:46 ; Admin Dose 40 MG; Start 11/26/16 at 21:00 Tramadol HCl (Ultram) 50 mg Q6H PRN PO PAIN AND/OR INFLAMMATION; Start at 19:00 Hydromorphone HCl 0.5 mg 0.5 mg Q3 PRN IV PAIN LEVEL 6-10 Last administered on 11/29/16 10:50; Admin Dose 0.5 MG; Start 11/29/16 at 02:00 Magnesium Sulfate (Magnesium Sulfate 4 Gm/100 ml) 100 ml @ 25 mls/hr ONCE ONCE IVPB Last administered on 11/29/16 10:50; Admin Dose 25 MLS/HR; Start at 11:30; Stop 11/29/16 at 15:29 MARI GALAVIZ November 29, 2016 11:54
--- NOTE | 2016-11-29 15:00 | CONS ---
Date/Time of Note Date/Time of Note DATE: 11/29/16 TIME: 14:59 Assessment/Plan Assessment/Plan Chief Complaint/Hosp Course SUBJECTIVE: Patient is lying comfortably in bed. No fevers. No acute events per report PHYSICAL EXAMINATION: GENERAL: Morbidly obese, middle-aged woman who is awake, in no distress. HEENT: Head atraumatic, normocephalic. Sclerae anicteric. Buccal mucosa dry. NECK: Supple, trachea midline. CHEST: Rise symmetrical. Breath sounds clear. HEART: S1, S2. ABDOMEN: Soft, bowel tones present. EXTREMITIES: Without cyanosis. ASSESSMENT: 1. Acute on chronic Escherichia coli extended-spectrum beta-lactamase pyelonephritis. 2. Status post nephrectomy due to staghorn calculus and nonfunctional kidney, postop day #6. 3. Morbid obesity. 4. Diabetes. 5. Hypertension. 6. 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 Repeat blood cultures negative. Stool for Clostridium difficile negative. We will continue her on Invanz until 2016 DW staff Problems: Consultation Date/Type/Reason Admit Date/Time November 17, 2016 at 19:05 Type of Consultation: ID Exam/Review of Systems Vital Signs Vitals Vital Signs Date Time Temp Pulse Resp B/P Pulse Ox O2 Delivery O2 Flow Rate FiO2 11/29/16 08:18 110/61 11/29/16 07:36 98.4 82 20 96 11/29/16 02:50 3.0 11/29/16 02:50 Nasal Cannula Intake and Output 11/28/16 11/28/16 11/29/16 14:59 22:59 06:59 Intake Total 870 ml 480 ml Balance 870 ml 480 ml Results Result Diagram: 11/29/16 0432 11/29/16 0442 Results 24 hrs Laboratory Tests Test 11/28/16 17:22 11/28/16 20:49 11/29/16 04:32 11/29/16 04:42 Bedside Glucose 119 83 White Blood Count 9.3 # Red Blood Count 3.51 L Hemoglobin 9.1 L Hematocrit 29.1 L Mean Corpuscular Volume 82.9 Mean Corpuscular Hemoglobin 25.9 L Mean Corpuscular Hemoglobin Concent 31.3 L Red Cell Distribution Width 14.4 Platelet Count 273 # Mean Platelet Volume 8.7 Neutrophils % 70.2 Lymphocytes % 18.2 Monocytes % 6.0 Eosinophils % 4.9 Basophils % 0.1 Nucleated Red Blood Cells % 0.2 H Neutrophils # 6.5 Lymphocytes # 1.7 Monocytes # 0.6 Eosinophils # 0.5 Basophils # 0.0 Nucleated Red Blood Cells # 0.0 Sodium Level 139 Potassium Level 3.3 L Chloride Level 99 Carbon Dioxide Level 27 Anion Gap 16 Blood Urea Nitrogen 12 Creatinine 0.83 Glucose Level 134 Calcium Level 8.6 Magnesium Level 1.4 L Test 11/29/16 08:08 11/29/16 12:20 Bedside Glucose 125 114 Medications Medications Current Medications Benazepril HCl (Lotensin) 10 mg DAILY PO Last administered on 11/29/16 08:18; Admin Dose 10 MG; Start 11/18/16 at 09:00 Diphenhydramine HCl (Benadryl) 25 mg Q6H PRN PO ITCHING Last administered on 14:54; Admin Dose 25 MG; Start 11/17/16 at 23:00 Ondansetron HCl (Zofran Inj) 4 mg Q4H PRN IV NAUSEA AND/OR VOMITING Last administered on 11/29/16 02:36; Admin Dose 4 MG; Start 11/17/16 at 23:00 Diagnostic Test (Pha) (Accu-Chek) Check 2 am Accucheck only if... 02 XX ; Start 11/18/16 at 02:00 Miscellaneous Information 1 ea NOTE XX ; Start 11/17/16 at 23:30 Glucose (Glutose) 15 gm Q15M PRN PO DECREASED GLUCOSE; Start 11/17/16 at 23:30 Glucose (Glutose) 22.5 gm Q15M PRN PO DECREASED GLUCOSE; Start 11/17/16 at 23: 30 Dextrose (D50w Syringe) 25 ml Q15M PRN IV DECREASED GLUCOSE; Start 11/17/16 at 23:30 Dextrose (D50w Syringe) 50 ml Q15M PRN IV DECREASED GLUCOSE; Start 11/17/16 at 23:30 Glucagon (Glucagen) 1 mg Q15M PRN IM DECREASED GLUCOSE; Start 11/17/16 at 23:30 Glucose (Glutose) 15 gm Q15M PRN BUCCAL DECREASED GLUCOSE; Start 11/17/16 at 23 :30 Famotidine (Pepcid Iv) 20 mg DAILY IV Last administered on 11/29/16 08:09; Admin Dose 20 MG; Start 11/18/16 at 11:30 Docusate Sodium (Colace) 200 mg HS PO Last administered on 11/26/16 20:16; Admin Dose 200 MG; Start 11/18/16 at 21:00 Sertraline HCl (Zoloft) 50 mg DAILY PO Last administered on 11/29/16 08:09; Admin Dose 50 MG; Start 11/19/16 at 09:00 Trazodone HCl (Desyrel) 50 mg HS PRN PO ANXIETY Last administered on 11/27/16 22:49; Admin Dose 50 MG; Start 11/18/16 at 12:30 Ferrous Sulfate (Feosol Liquid Cup) 300 mg BID NGT Last administered on 08:09; Admin Dose 300 MG; Start 11/20/16 at 09:00 Zolpidem Tartrate 10 mg 10 mg HS PRN PO INSOMNIA Last administered on 23:39; Admin Dose 10 MG; Start 11/18/16 at 22:00 Ertapenem/Sodium Chloride (Invanz/NS) 100 ml @ 200 mls/hr Q24H IVPB Last administered on 11/28/16 17:25; Admin Dose 200 MLS/HR; Start 11/21/16 at 17:00 ; Stop 12/01/16 at 16:59 Naloxone HCl (Narcan) 0.2 mg Q2M PRN IV FOR RESP RATE 8 OR LESS; Start at 12:30 Acetaminophen (Tylenol Tab) 650 mg Q6H PRN PO PAIN AND OR ELEVATED TEMP Last administered on 11/23/16 23:26; Admin Dose 650 MG; Start 11/23/16 at 23:30 Simethicone (Mylicon) 80 mg Q6H PRN PO DISTENSION/GAS/BLOATING Last administered on 11/25/16 23:49; Admin Dose 80 MG; Start 11/26/16 at 00:00 Atorvastatin Calcium (Lipitor) 40 mg HS PO Last administered on 11/28/16 20:46 ; Admin Dose 40 MG; Start 11/26/16 at 21:00 Tramadol HCl (Ultram) 50 mg Q6H PRN PO PAIN AND/OR INFLAMMATION; Start at 19:00 Hydromorphone HCl 0.5 mg 0.5 mg Q3 PRN IV PAIN LEVEL 6-10 Last administered on 11/29/16 13:56; Admin Dose 0.5 MG; Start 11/29/16 at 02:00 Magnesium Sulfate (Magnesium Sulfate 4 Gm/100 ml) 100 ml @ 25 mls/hr ONCE ONCE IVPB Last administered on 11/29/16 10:50; Admin Dose 25 MLS/HR; Start at 11:30; Stop 11/29/16 at 15:29 CHELITA DAVIES NP November 29, 2016 15:00
[2016-11-29] MEDS: ERTAPENEM SODIUM 1 GM in SOD CHLORIDE 0.9% 100 ML IVPB SCH (17:31)
--- NOTE | 2016-11-29 18:59 | PN ---
DATE: 11/29/2016 CARDIOLOGY FOLLOWUP SUBJECTIVE: Discussed with the staff. The patient has no chest pain or pressure. No shortness of breath. Complains of abdominal pain, but said she is better today. No nausea or vomiting. MEDICATIONS: Reviewed. PHYSICAL EXAMINATION: VITAL SIGNS: Temperature 98.4, heart rate of 82, blood pressure 110/61, respiratory rate of 20, sat urating 98%. HEENT: Normocephalic, atraumatic. Obese female. Pupils are equal. CARDIOVASCULAR: Regular rate and rhythm. PULMONARY: With no wheezes. GASTROINTESTINAL: Soft, nontender, obese. EXTREMITIES: With trivial edema. NEUROLOGIC: Awake and, alert. PSYCHIATRIC: Appears to be calm. LABORATORY DATA: WBC 9.3, hemoglobin 9.1, platelets of 273. Sodium 139, potassium 3.3, BUN of 12, creatinine 0.83, glucose 134, magnesium is 1.4. ASSESSMENT AND PLAN: 1. Status post nephrectomy. 2. Extended-spectrum beta-lactamase urinary tract infection. 3. Hypokalemia and hypomagnesemia. 4. Diabetes. 5. Hypertension. 6. Anemia. RECOMMENDATIONS: Electrolytes including potassium and magnesium are to be replaced. Continue with current cardiac care. Respiratory care continued. Diabetic control will be continued. Postop car e as per surgery. Dictated By: ISAAK WIGGINS MD AV/MIRA Conf#: [id number] DID#: [id number] CC: MARI GALAVIZ MD;*EndCC*
[2016-11-29 19:56] VITALS: BP 124/58; RESP 18
[2016-11-29] MEDS: DOCUSATE SODIUM 100 MG CAP PO SCH (20:52)
[2016-11-29] MEDS: ATORVASTATIN 40 MG TAB PO SCH (20:52)
[2016-11-29] MEDS ORDERED: METOCLOPRAMIDE 10 MG INJ IV PRN (21:00)
[2016-11-29] MEDS: traMADol 50 MG TAB PO PRN (22:27)
[2016-11-29] MEDS: ZOLPIDEM 5 MG TAB PO PRN (22:27)
[2016-11-30] MEDS: ACCU-CHEK XX SCH ×2 (02:00→20:33)
[2016-11-30] MEDS: HYDROmorphONE 1 MG/ML SYG IV PRN ×7 (02:41→21:58)
[2016-11-30 05:42] LABS: ADD SCAN DIFF NO
[2016-11-30 06:01] LABS: BASOPHILS % 0.2 % (0.0-2.0); EOSINOPHILS # 0.5 10^3/ul (0.0-0.5); HEMATOCRIT 30.4 % (37.0-47.0); HEMOGLOBIN 9.5 g/dl (12.0-16.0); LYMPHOCYTES % 19.8 % (15.0-51.0); MEAN CORPUSCULAR HEMOGLOBIN 26.2 pg (29.0-33.0); MEAN CORPUSCULAR HGB CONC 31.3 g/dl (32.0-37.0); MEAN CORPUSCULAR VOLUME 83.7 fl (82.0-101.0); MEAN PLATELET VOLUME 8.8 fl (7.4-10.4); MONOCYTE # 0.6 10^3/ul (0.3-0.9); MONOCYTES % 5.4 % (0.0-11.0); NEUTROPHILS % 68.7 % (39.0-77.0); PLATELET COUNT 298 10^3/UL (140-415); RED BLOOD COUNT 3.63 10^6/ul (4.20-5.40); RED CELL DISTRIBUTION WIDTH 14.5 % (11.5-14.5); WHITE BLOOD COUNT 10.2 10^3/ul (4.8-10.8)
[2016-11-30 06:10] LABS: POTASSIUM 3.8 mmol/L (3.5-5.1)
[2016-11-30 06:13] LABS: CREATININE 0.82 mg/dl (0.44-1.00)
[2016-11-30 06:14] LABS: CALCIUM 8.5 mg/dl (8.4-10.2); MAGNESIUM 2.1 mg/dl (1.7-2.5)
[2016-11-30 07:44] VITALS: BP 106/55; RESP 18
[2016-11-30] MEDS: Insulin NOVOLOG SS MODERATE Algorithm (SS with meals and bedtime) SC SCH ×4 (07:51→20:33)
[2016-11-30] MEDS: SERTRALINE 50 MG TAB PO SCH (08:00)
[2016-11-30] MEDS: FAMOTIDINE 20 MG INJ IV SCH (08:00)
[2016-11-30] MEDS: FERROUS SULFATE 60 MG/ML 5ML CUP NGT SCH ×2 (08:00→20:34)
[2016-11-30] MEDS: traMADol 50 MG TAB PO PRN (08:00)
[2016-11-30] MEDS: metFORMIN 850 MG TAB PO SCH ×2 (08:00→17:26)
[2016-11-30] MEDS: REPAGLINIDE 1 MG TAB PO SCH ×3 (08:00→17:26)
[2016-11-30] MEDS: BENAZEPRIL 10 MG TAB PO SCH (08:01)
--- NOTE | 2016-11-30 13:40 | CONS ---
Date/Time of Note Date/Time of Note DATE: 11/30/16 TIME: 13:38 Assessment/Plan Assessment/Plan Chief Complaint/Hosp Course SUBJECTIVE: Alert, feels good, denies pain, no fevers PHYSICAL EXAMINATION: GENERAL: Morbidly obese, middle-aged woman who is awake, in no distress. HEENT: Head atraumatic, normocephalic. Sclerae anicteric. Buccal mucosa dry. NECK: Supple, trachea midline. CHEST: Rise symmetrical. Breath sounds clear. HEART: S1, S2. ABDOMEN: Soft, bowel tones present. EXTREMITIES: Without cyanosis. ASSESSMENT: 1. Acute on chronic Escherichia coli extended-spectrum beta-lactamase pyelonephritis. 2. Status post nephrectomy due to staghorn calculus and nonfunctional kidney, postop day #7. 3. Morbid obesity. 4. Diabetes. 5. Hypertension. 6. 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 Dc abx in am DW staff Problems: Consultation Date/Type/Reason Admit Date/Time November 17, 2016 at 19:05 Type of Consultation: ID Exam/Review of Systems Vital Signs Vitals Vital Signs Date Time Temp Pulse Resp B/P Pulse Ox O2 Delivery O2 Flow Rate FiO2 11/30/16 08:29 3.0 11/30/16 07:44 98.5 80 18 106/55 97 11/29/16 02:50 Nasal Cannula Intake and Output 11/29/16 11/29/16 11/30/16 15:00 23:00 07:00 Intake Total 100 ml 1400 ml 480 ml Balance 100 ml 1400 ml 480 ml Results Result Diagram: 11/30/16 0450 11/30/16 0450 Results 24 hrs Laboratory Tests Test 11/29/16 17:35 11/29/16 20:39 11/30/16 04:50 11/30/16 07:48 Bedside Glucose 147 132 103 White Blood Count 10.2 Red Blood Count 3.63 L Hemoglobin 9.5 L Hematocrit 30.4 L Mean Corpuscular Volume 83.7 Mean Corpuscular Hemoglobin 26.2 L Mean Corpuscular Hemoglobin Concent 31.3 L Red Cell Distribution Width 14.5 Platelet Count 298 Mean Platelet Volume 8.8 Neutrophils % 68.7 Lymphocytes % 19.8 Monocytes % 5.4 Eosinophils % 5.0 Basophils % 0.2 Nucleated Red Blood Cells % 0.0 Neutrophils # 7.0 Lymphocytes # 2.0 Monocytes # 0.6 Eosinophils # 0.5 Basophils # 0.0 Nucleated Red Blood Cells # 0.0 Sodium Level 140 Potassium Level 3.8 Chloride Level 100 Carbon Dioxide Level 28 Anion Gap 16 Blood Urea Nitrogen 12 Creatinine 0.82 Glucose Level 111 Calcium Level 8.5 Magnesium Level 2.1 Test 11/30/16 11:39 Bedside Glucose 101 Medications Medications Current Medications Benazepril HCl (Lotensin) 10 mg DAILY PO Last administered on 11/29/16 08:18; Admin Dose 10 MG; Start 11/18/16 at 09:00 Diphenhydramine HCl (Benadryl) 25 mg Q6H PRN PO ITCHING Last administered on 14:54; Admin Dose 25 MG; Start 11/17/16 at 23:00 Ondansetron HCl (Zofran Inj) 4 mg Q4H PRN IV NAUSEA AND/OR VOMITING Last administered on 11/29/16 18:13; Admin Dose 4 MG; Start 11/17/16 at 23:00 Diagnostic Test (Pha) (Accu-Chek) Check 2 am Accucheck only if... 02 XX ; Start 11/18/16 at 02:00 Miscellaneous Information 1 ea NOTE XX ; Start 11/17/16 at 23:30 Glucose (Glutose) 15 gm Q15M PRN PO DECREASED GLUCOSE; Start 11/17/16 at 23:30 Glucose (Glutose) 22.5 gm Q15M PRN PO DECREASED GLUCOSE; Start 11/17/16 at 23: 30 Dextrose (D50w Syringe) 25 ml Q15M PRN IV DECREASED GLUCOSE; Start 11/17/16 at 23:30 Dextrose (D50w Syringe) 50 ml Q15M PRN IV DECREASED GLUCOSE; Start 11/17/16 at 23:30 Glucagon (Glucagen) 1 mg Q15M PRN IM DECREASED GLUCOSE; Start 11/17/16 at 23:30 Glucose (Glutose) 15 gm Q15M PRN BUCCAL DECREASED GLUCOSE; Start 11/17/16 at 23 :30 Famotidine (Pepcid Iv) 20 mg DAILY IV Last administered on 11/30/16 08:00; Admin Dose 20 MG; Start 11/18/16 at 11:30 Docusate Sodium (Colace) 200 mg HS PO Last administered on 11/29/16 20:52; Admin Dose 200 MG; Start 11/18/16 at 21:00 Sertraline HCl (Zoloft) 50 mg DAILY PO Last administered on 11/30/16 08:00; Admin Dose 50 MG; Start 11/19/16 at 09:00 Trazodone HCl (Desyrel) 50 mg HS PRN PO ANXIETY Last administered on 11/27/16 22:49; Admin Dose 50 MG; Start 11/18/16 at 12:30 Ferrous Sulfate (Feosol Liquid Cup) 300 mg BID NGT Last administered on 08:00; Admin Dose 300 MG; Start 11/20/16 at 09:00 Zolpidem Tartrate 10 mg 10 mg HS PRN PO INSOMNIA Last administered on 22:27; Admin Dose 10 MG; Start 11/18/16 at 22:00 Ertapenem/Sodium Chloride (Invanz/NS) 100 ml @ 200 mls/hr Q24H IVPB Last administered on 11/29/16 17:31; Admin Dose 200 MLS/HR; Start 11/21/16 at 17:00 ; Stop 12/01/16 at 16:59 Naloxone HCl (Narcan) 0.2 mg Q2M PRN IV FOR RESP RATE 8 OR LESS; Start at 12:30 Acetaminophen (Tylenol Tab) 650 mg Q6H PRN PO PAIN AND OR ELEVATED TEMP Last administered on 11/23/16 23:26; Admin Dose 650 MG; Start 11/23/16 at 23:30 Simethicone (Mylicon) 80 mg Q6H PRN PO DISTENSION/GAS/BLOATING Last administered on 11/25/16 23:49; Admin Dose 80 MG; Start 11/26/16 at 00:00 Atorvastatin Calcium (Lipitor) 40 mg HS PO Last administered on 11/29/16 20:52 ; Admin Dose 40 MG; Start 11/26/16 at 21:00 Tramadol HCl (Ultram) 50 mg Q6H PRN PO PAIN AND/OR INFLAMMATION Last administered on 11/30/16 08:00; Admin Dose 50 MG; Start 11/26/16 at 19:00 Hydromorphone HCl (Dilaudid) 0.5 mg Q3 PRN IV PAIN LEVEL 6-10 Last administered on 11/30/16 12:28; Admin Dose 0.5 MG; Start 11/29/16 at 02:00 Metoclopramide HCl (Reglan) 10 mg Q6H PRN IV NAUSEA Last administered on 22:26; Admin Dose 10 MG; Start 11/29/16 at 21:00 CHELITA DAVIES NP November 30, 2016 13:40
--- NOTE | 2016-11-30 17:02 | PN ---
Date/Time of Note Date/Time of Note DATE: 11/30/16 TIME: 17:00 Assessment/Plan VTE Prophylaxis VTE Prophylaxis Intervention: SCD's Assessment/Plan Chief Complaint/Hosp Course (1) Status post nephrectomy Nephrectomy done secondary to staghorn calculus and a nonfunctional kidney Pain control with Dilaudid (2) Chronic kidney disease Stable (3) Obesity (BMI 30-39.9) Calorie restriction diet. (4) Diabetes mellitus type 2 in obese Off of insulin using oral agents she has very good control without hypoglycemia. (5) Iron deficiency anemia Monitor (6) Urinary tract infection due to ESBL Klebsiella Continue ertapenem, plan is to DC in a.m. 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 Problems: Subjective 24 Hr Interval Summary Constitutional: no complaints Exam/Review of Systems Vital Signs Vitals Vital Signs Date Time Temp Pulse Resp B/P Pulse Ox O2 Delivery O2 Flow Rate FiO2 11/30/16 08:29 3.0 11/30/16 07:44 98.5 80 18 106/55 97 11/29/16 02:50 Nasal Cannula Intake and Output 11/29/16 11/29/16 11/30/16 15:00 23:00 07:00 Intake Total 100 ml 1400 ml 480 ml Balance 100 ml 1400 ml 480 ml Exam Constitutional: alert Respiratory: clear to auscultation Cardiovascular: regular rate and rhythm Gastrointestinal: soft, No distended Musculoskeletal: nl extremities to inspection Results Result Diagram: 11/30/16 0450 11/30/16 0450 Results 24 hrs Laboratory Tests Test 11/29/16 17:35 11/29/16 20:39 11/30/16 04:50 11/30/16 07:48 Bedside Glucose 147 132 103 White Blood Count 10.2 Red Blood Count 3.63 L Hemoglobin 9.5 L Hematocrit 30.4 L Mean Corpuscular Volume 83.7 Mean Corpuscular Hemoglobin 26.2 L Mean Corpuscular Hemoglobin Concent 31.3 L Red Cell Distribution Width 14.5 Platelet Count 298 Mean Platelet Volume 8.8 Neutrophils % 68.7 Lymphocytes % 19.8 Monocytes % 5.4 Eosinophils % 5.0 Basophils % 0.2 Nucleated Red Blood Cells % 0.0 Neutrophils # 7.0 Lymphocytes # 2.0 Monocytes # 0.6 Eosinophils # 0.5 Basophils # 0.0 Nucleated Red Blood Cells # 0.0 Sodium Level 140 Potassium Level 3.8 Chloride Level 100 Carbon Dioxide Level 28 Anion Gap 16 Blood Urea Nitrogen 12 Creatinine 0.82 Glucose Level 111 Calcium Level 8.5 Magnesium Level 2.1 Test 11/30/16 11:39 Bedside Glucose 101 Medications Medications Current Medications Benazepril HCl (Lotensin) 10 mg DAILY PO Last administered on 11/29/16 08:18; Admin Dose 10 MG; Start 11/18/16 at 09:00 Diphenhydramine HCl (Benadryl) 25 mg Q6H PRN PO ITCHING Last administered on 14:54; Admin Dose 25 MG; Start 11/17/16 at 23:00 Ondansetron HCl (Zofran Inj) 4 mg Q4H PRN IV NAUSEA AND/OR VOMITING Last administered on 11/29/16 18:13; Admin Dose 4 MG; Start 11/17/16 at 23:00 Diagnostic Test (Pha) (Accu-Chek) Check 2 am Accucheck only if... 02 XX ; Start 11/18/16 at 02:00 Miscellaneous Information 1 ea NOTE XX ; Start 11/17/16 at 23:30 Glucose (Glutose) 15 gm Q15M PRN PO DECREASED GLUCOSE; Start 11/17/16 at 23:30 Glucose (Glutose) 22.5 gm Q15M PRN PO DECREASED GLUCOSE; Start 11/17/16 at 23: 30 Dextrose (D50w Syringe) 25 ml Q15M PRN IV DECREASED GLUCOSE; Start 11/17/16 at 23:30 Dextrose (D50w Syringe) 50 ml Q15M PRN IV DECREASED GLUCOSE; Start 11/17/16 at 23:30 Glucagon (Glucagen) 1 mg Q15M PRN IM DECREASED GLUCOSE; Start 11/17/16 at 23:30 Glucose (Glutose) 15 gm Q15M PRN BUCCAL DECREASED GLUCOSE; Start 11/17/16 at 23 :30 Docusate Sodium (Colace) 200 mg HS PO Last administered on 11/29/16 20:52; Admin Dose 200 MG; Start 11/18/16 at 21:00 Sertraline HCl (Zoloft) 50 mg DAILY PO Last administered on 11/30/16 08:00; Admin Dose 50 MG; Start 11/19/16 at 09:00 Trazodone HCl (Desyrel) 50 mg HS PRN PO ANXIETY Last administered on 11/27/16 22:49; Admin Dose 50 MG; Start 11/18/16 at 12:30 Ferrous Sulfate (Feosol Liquid Cup) 300 mg BID NGT Last administered on 08:00; Admin Dose 300 MG; Start 11/20/16 at 09:00 Zolpidem Tartrate 10 mg 10 mg HS PRN PO INSOMNIA Last administered on 22:27; Admin Dose 10 MG; Start 11/18/16 at 22:00 Ertapenem/Sodium Chloride (Invanz/NS) 100 ml @ 200 mls/hr Q24H IVPB Last administered on 11/29/16 17:31; Admin Dose 200 MLS/HR; Start 11/21/16 at 17:00 ; Stop 12/01/16 at 00:15 Naloxone HCl (Narcan) 0.2 mg Q2M PRN IV FOR RESP RATE 8 OR LESS; Start at 12:30 Acetaminophen (Tylenol Tab) 650 mg Q6H PRN PO PAIN AND OR ELEVATED TEMP Last administered on 11/23/16 23:26; Admin Dose 650 MG; Start 11/23/16 at 23:30 Simethicone (Mylicon) 80 mg Q6H PRN PO DISTENSION/GAS/BLOATING Last administered on 11/25/16 23:49; Admin Dose 80 MG; Start 11/26/16 at 00:00 Atorvastatin Calcium (Lipitor) 40 mg HS PO Last administered on 11/29/16 20:52 ; Admin Dose 40 MG; Start 11/26/16 at 21:00 Tramadol HCl (Ultram) 50 mg Q6H PRN PO PAIN AND/OR INFLAMMATION Last administered on 11/30/16 08:00; Admin Dose 50 MG; Start 11/26/16 at 19:00 Hydromorphone HCl (Dilaudid) 0.5 mg Q3 PRN IV PAIN LEVEL 6-10 Last administered on 11/30/16 15:40; Admin Dose 0.5 MG; Start 11/29/16 at 02:00 Metoclopramide HCl (Reglan) 10 mg Q6H PRN IV NAUSEA Last administered on 22:26; Admin Dose 10 MG; Start 11/29/16 at 21:00 Famotidine (Pepcid) 20 mg DAILY PO ; Start 12/01/16 at 09:00 MARI GALAVIZ November 30, 2016 17:02
[2016-11-30] MEDS: ERTAPENEM SODIUM 1 GM in SOD CHLORIDE 0.9% 100 ML IVPB SCH (17:27)
[2016-11-30 20:30] VITALS: BP 111/56; PULSE 83; RESP 18
[2016-11-30] MEDS: ATORVASTATIN 40 MG TAB PO SCH (20:34)
[2016-11-30] MEDS: DOCUSATE SODIUM 100 MG CAP PO SCH (20:34)
[2016-11-30] MEDS: ZOLPIDEM 5 MG TAB PO PRN (22:28)
[2016-12-01] MEDS: HYDROmorphONE 1 MG/ML SYG IV PRN ×5 (01:59→15:21)
[2016-12-01 05:14] LABS: ADD SCAN DIFF NO
[2016-12-01 05:17] LABS: BASOPHILS % 0.2 % (0.0-2.0); EOSINOPHILS # 0.6 10^3/ul (0.0-0.5); EOSINOPHILS % 5.9 % (0.0-7.0); HEMATOCRIT 32.2 % (37.0-47.0); LYMPHOCYTES # 2.1 10^3/ul (0.8-2.9); LYMPHOCYTES % 22.1 % (15.0-51.0); MEAN CORPUSCULAR HGB CONC 31.1 g/dl (32.0-37.0); MEAN CORPUSCULAR VOLUME 83.6 fl (82.0-101.0); MEAN PLATELET VOLUME 8.7 fl (7.4-10.4); MONOCYTE # 0.5 10^3/ul (0.3-0.9); MONOCYTES % 5.2 % (0.0-11.0); NEUTROPHIL # 6.3 10^3/ul (1.6-7.5); NEUTROPHILS % 65.9 % (39.0-77.0); PLATELET COUNT 313 10^3/UL (140-415); RED BLOOD COUNT 3.85 10^6/ul (4.20-5.40); RED CELL DISTRIBUTION WIDTH 14.6 % (11.5-14.5); WHITE BLOOD COUNT 9.6 10^3/ul (4.8-10.8)
[2016-12-01 05:32] LABS: POTASSIUM 4.1 mmol/L (3.5-5.1)
[2016-12-01 05:35] LABS: CREATININE 0.75 mg/dl (0.44-1.00)
[2016-12-01 05:36] LABS: CALCIUM 8.7 mg/dl (8.4-10.2); MAGNESIUM 1.8 mg/dl (1.7-2.5)
[2016-12-01] MEDS: Insulin NOVOLOG SS MODERATE Algorithm (SS with meals and bedtime) SC SCH ×3 (07:48→17:05)
[2016-12-01 08:08] VITALS: BP 114/55; RESP 18
[2016-12-01] MEDS: SACCHAROMYCES BOULARDII 250 MG CAP PO SCH ×2 (08:28→12:13)
[2016-12-01] MEDS: FERROUS SULFATE 60 MG/ML 5ML CUP NGT SCH (08:28)
[2016-12-01] MEDS: SERTRALINE 50 MG TAB PO SCH (08:29)
[2016-12-01] MEDS: metFORMIN 850 MG TAB PO SCH ×2 (08:29→17:35)
[2016-12-01] MEDS: BENAZEPRIL 10 MG TAB PO SCH (08:29)
[2016-12-01] MEDS: REPAGLINIDE 1 MG TAB PO SCH ×3 (08:29→17:35)
[2016-12-01] MEDS ORDERED: FAMOTIDINE 20 MG TAB PO SCH (09:00)
--- NOTE | 2016-12-01 13:54 | CONS ---
Date/Time of Note Date/Time of Note DATE: 12/01/16 TIME: 13:53 Assessment/Plan Assessment/Plan Chief Complaint/Hosp Course SUBJECTIVE: Alert, feels good, no fevers PHYSICAL EXAMINATION: GENERAL: Morbidly obese, middle-aged woman who is awake, in no distress. HEENT: Head atraumatic, normocephalic. Sclerae anicteric. Buccal mucosa dry. NECK: Supple, trachea midline. CHEST: Rise symmetrical. Breath sounds clear. HEART: S1, S2. ABDOMEN: Soft, bowel tones present. EXTREMITIES: Without cyanosis. ASSESSMENT: 1. S/p acute on chronic Escherichia coli extended-spectrum beta-lactamase pyelonephritis. 2. Status post nephrectomy due to staghorn calculus and nonfunctional kidney, postop day #7. 3. Morbid obesity. 4. Diabetes. 5. Hypertension. 6. 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 Off abx DW staff Problems: Consultation Date/Type/Reason Admit Date/Time November 17, 2016 at 19:05 Type of Consultation: ID Exam/Review of Systems Vital Signs Vitals Vital Signs Date Time Temp Pulse Resp B/P Pulse Ox O2 Delivery O2 Flow Rate FiO2 12/01/16 08:08 98.3 78 18 114/55 96 12/01/16 05:32 3.0 11/30/16 20:30 Nasal Cannula Intake and Output 11/30/16 11/30/16 12/01/16 15:00 23:00 07:00 Intake Total 1300 ml 750 ml Balance 1300 ml 750 ml Results Result Diagram: 12/01/16 0447 12/01/16 0447 Results 24 hrs Laboratory Tests Test 11/30/16 17:23 11/30/16 20:32 12/01/16 04:47 12/01/16 07:46 Bedside Glucose 153 107 117 White Blood Count 9.6 Red Blood Count 3.85 L Hemoglobin 10.0 L Hematocrit 32.2 L Mean Corpuscular Volume 83.6 Mean Corpuscular Hemoglobin 26.0 L Mean Corpuscular Hemoglobin Concent 31.1 L Red Cell Distribution Width 14.6 H Platelet Count 313 Mean Platelet Volume 8.7 Neutrophils % 65.9 Lymphocytes % 22.1 Monocytes % 5.2 Eosinophils % 5.9 Basophils % 0.2 Nucleated Red Blood Cells % 0.0 Neutrophils # 6.3 Lymphocytes # 2.1 Monocytes # 0.5 Eosinophils # 0.6 H Basophils # 0.0 Nucleated Red Blood Cells # 0.0 Sodium Level 139 Potassium Level 4.1 Chloride Level 101 Carbon Dioxide Level 27 Anion Gap 15 Blood Urea Nitrogen 14 Creatinine 0.75 Glucose Level 107 Calcium Level 8.7 Magnesium Level 1.8 Test 12/01/16 11:30 Bedside Glucose 132 Medications Medications Current Medications Benazepril HCl (Lotensin) 10 mg DAILY PO Last administered on 12/01/16 08:29; Admin Dose 10 MG; Start 11/18/16 at 09:00 Diphenhydramine HCl (Benadryl) 25 mg Q6H PRN PO ITCHING Last administered on 14:54; Admin Dose 25 MG; Start 11/17/16 at 23:00 Ondansetron HCl (Zofran Inj) 4 mg Q4H PRN IV NAUSEA AND/OR VOMITING Last administered on 11/29/16 18:13; Admin Dose 4 MG; Start 11/17/16 at 23:00 Diagnostic Test (Pha) (Accu-Chek) Check 2 am Accucheck only if... 02 XX ; Start 11/18/16 at 02:00 Miscellaneous Information 1 ea NOTE XX ; Start 11/17/16 at 23:30 Glucose (Glutose) 15 gm Q15M PRN PO DECREASED GLUCOSE; Start 11/17/16 at 23:30 Glucose (Glutose) 22.5 gm Q15M PRN PO DECREASED GLUCOSE; Start 11/17/16 at 23: 30 Dextrose (D50w Syringe) 25 ml Q15M PRN IV DECREASED GLUCOSE; Start 11/17/16 at 23:30 Dextrose (D50w Syringe) 50 ml Q15M PRN IV DECREASED GLUCOSE; Start 11/17/16 at 23:30 Glucagon (Glucagen) 1 mg Q15M PRN IM DECREASED GLUCOSE; Start 11/17/16 at 23:30 Glucose (Glutose) 15 gm Q15M PRN BUCCAL DECREASED GLUCOSE; Start 11/17/16 at 23 :30 Docusate Sodium (Colace) 200 mg HS PO Last administered on 11/30/16 20:34; Admin Dose 200 MG; Start 11/18/16 at 21:00 Sertraline HCl (Zoloft) 50 mg DAILY PO Last administered on 12/01/16 08:29; Admin Dose 50 MG; Start 11/19/16 at 09:00 Trazodone HCl (Desyrel) 50 mg HS PRN PO ANXIETY Last administered on 11/27/16 22:49; Admin Dose 50 MG; Start 11/18/16 at 12:30 Ferrous Sulfate (Feosol Liquid Cup) 300 mg BID NGT Last administered on 08:28; Admin Dose 300 MG; Start 11/20/16 at 09:00 Zolpidem Tartrate (Ambien) 10 mg HS PRN PO INSOMNIA Last administered on 22:28; Admin Dose 10 MG; Start 11/18/16 at 22:00 Naloxone HCl (Narcan) 0.2 mg Q2M PRN IV FOR RESP RATE 8 OR LESS; Start at 12:30 Acetaminophen (Tylenol Tab) 650 mg Q6H PRN PO PAIN AND OR ELEVATED TEMP Last administered on 11/23/16 23:26; Admin Dose 650 MG; Start 11/23/16 at 23:30 Simethicone (Mylicon) 80 mg Q6H PRN PO DISTENSION/GAS/BLOATING Last administered on 11/25/16 23:49; Admin Dose 80 MG; Start 11/26/16 at 00:00 Atorvastatin Calcium (Lipitor) 40 mg HS PO Last administered on 11/30/16 20:34 ; Admin Dose 40 MG; Start 11/26/16 at 21:00 Tramadol HCl (Ultram) 50 mg Q6H PRN PO PAIN AND/OR INFLAMMATION Last administered on 11/30/16 08:00; Admin Dose 50 MG; Start 11/26/16 at 19:00 Hydromorphone HCl (Dilaudid) 0.5 mg Q3 PRN IV PAIN LEVEL 6-10 Last administered on 12/01/16 12:13; Admin Dose 0.5 MG; Start 11/29/16 at 02:00 Metoclopramide HCl (Reglan) 10 mg Q6H PRN IV NAUSEA Last administered on 22:26; Admin Dose 10 MG; Start 11/29/16 at 21:00 Famotidine (Pepcid) 20 mg DAILY PO Last administered on 12/01/16 08:29; Admin Dose 20 MG; Start 12/01/16 at 09:00 Saccharomyces Boulardii (Florastor) 500 mg TID PO Last administered on 12:13; Admin Dose 500 MG; Start 12/01/16 at 09:00 CHELITA DAVIES NP December 01, 2016 13:54
--- NOTE | 2016-12-02 18:34 | DS ---
DATE OF ADMISSION: 11/17/2016 DATE OF DISCHARGE: 12/01/2016 DISCHARGE DIAGNOSES: 1. Staghorn calculus with nonfunctioning kidney, status post nephrectomy. 2. Chronic kidney disease, stable. 3. Obesity. Diet and lifestyle recommendations were given. 4. Type 2 diabetes. Continue oral medications. 5. Extended-spectrum beta-lactamase Klebsiella urinary tract infection, status post ertapenem and n o further antibiotics indicated. 6. Dysthymic disorder. Continue medications. 7. 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 HOSPITAL COURSE: The patient is a 51-year-old female with a history of diabetes, panic disorder, as well as a ureteral stent. The patient was transferred to [facility] for evaluation of th e stent. She had been complaining of bilateral flank pain and reported hematuria. The patient was accepted by Dr. Laughlin of urology. The patient had a urine culture that showed Extended-spectrum bet a-lactamase Escherichia coli and she was started on ertapenem for this. She was seen by ID. The nessa rangel was seen by Dr. Laughlin of urology and underwent a right radical nephrectomy with removal of rig ht ureteral stent. Indication was because of a nonfunctioning right kidney with staghorn right gerard l calculus and right mid ureteral stone with right chronic pyelonephritis. The patient was given me dications for pain control. The patient reportedly was unable to have her antibiotics arranged to b e given as an outpatient and she did require ertapenem to be given for her ESBL E. coli. The patient did complete the course at _[facility] House. Of note, the patient did have VRE in the stool, which was f elt to be colonization. Her C. diff was negative. The patient was felt to be stable for discharge. On day of discharge, the patient's vitals, labs, physical exam were stable. She had no acute comp laints and questions answered. CONDITION ON DISCHARGE: Stable. DISPOSITION: To home. MEDICATIONS: The patient is to continue her usual home medications. The patient was given new pres criptions for: 1. Atorvastatin 40 mg p.o. at bedtime. 2. Benazepril 10 mg daily. 3. Ferrous sulfate 300 b.i.d. 4. Victoza 1.8 subQ daily. 5. Metformin 1000 p.o. with breakfast and dinner. 6. Prandin 0.5 with meals. 7. Zoloft 50 daily. 8. Trazodone 50 mg p.o. at bedtime p.r.n. anxiety. The patient has no reported home medications. FOLLOWUP: The patient is to follow up with her PCP in 1 to 2 weeks. Greater than 30 minutes was spent coordinating discharge of patient. Dictated By: MARI ZHAO/MIRA Conf#: [id number] DID#: [id number]
== END 2016-12-01 19:13 | disposition home or self-care (01) | DRG 660 ==
LOC: PP2 19:05
PROVIDERS: ADMIT Surgery Surgical Oncology; ATTEND Surgery Surgical Oncology
PROC: 0TB64ZZ Excision of Right Ureter, Percutaneous Endoscopic Approach (ICD-10-PCS; 2016-11-23)
PROC: 0DBW4ZZ Excision of Peritoneum, Percutaneous Endoscopic Approach (ICD-10-PCS; 2016-11-23)
PROC: 0TP94DZ Removal of Intraluminal Device from Ureter, Percutaneous Endoscopic Approach (ICD-10-PCS; 2016-11-23)
PROC: 0TT04ZZ Resection of Right Kidney, Percutaneous Endoscopic Approach (ICD-10-PCS; principal; 2016-11-23 12:00)
DX: N20.2 Calculus of kidney with calculus of ureter (principal); N30.00 Acute cystitis without hematuria; E11.22 Type 2 diabetes mellitus with diabetic chronic kidney disease; E88.81 Metabolic syndrome and other insulin resistance; E66.01 Morbid (severe) obesity due to excess calories; N10 Acute pyelonephritis; N11.9 Chronic tubulo-interstitial nephritis, unspecified; B95.2 Enterococcus as the cause of diseases classified elsewhere; B96.20 Unspecified Escherichia coli [E. coli] as the cause of diseases classified elsewhere; N26.1 Atrophy of kidney (terminal); N28.9 Disorder of kidney and ureter, unspecified; D50.9 Iron deficiency anemia, unspecified; F41.9 Anxiety disorder, unspecified; F34.1 Dysthymic disorder; I12.9 Hypertensive chronic kidney disease with stage 1 through stage 4 chronic kidney disease, or unspecified chronic kidney disease; N18.2 Chronic kidney disease, stage 2 (mild); R09.02 Hypoxemia; Z16.12 Extended spectrum beta lactamase (ESBL) resistance; Z96.0 Presence of urogenital implants; Z68.38 Body mass index [BMI] 38.0-38.9, adult; Z16.21 Resistance to vancomycin; Z79.84 Long term (current) use of oral hypoglycemic drugs; Z90.49 Acquired absence of other specified parts of digestive tract
CPT/HCPCS: 71010; 71020; 74010; 74176; 78709; 80048; 80053; 81001; 81003; 82270; 82728; 82962; 83036; 83540; 83735; 84100; 84443; 84703; 85014; 85018; 85025; 85610; 85730; 86803; 87045; 87075; 87086; 88307; 93005; 93306; A9562; J0744; J1170; J1335; J1644; J1815; J2175; J2185; J2250; J2270; J2274; J2370; J2405; J2710; J2765; J2916; J3010; J3475; J7030; J7042